=== PATIENT | male | born 1985 | race Caucasian/White ===

== ENCOUNTER 2020-04-16 16:09 | Outpatient (REF) | payer OTHER, SELFPAY | END 2020-04-16 16:10 | disposition home or self-care (01) | LOC: HO.LAB 16:09 | PROVIDERS: Visit Provider Internal Medicine | DX: Z20.828 Contact with and (suspected) exposure to other viral communicable diseases (principal) | CPT/HCPCS: 87635 ==

== ENCOUNTER 2024-09-05 08:51 | Outpatient (REF) | payer OTHER, SELFPAY ==
--- NOTE | 2024-09-05 08:56 | EMG_ITS ---
Right median and ulnar motor and sensory studies were performed. Right radial sensory study was performed. Paraspinal muscles and some limb muscles were tested with a needle. IMPRESSION: 1. 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 2. Chronic right mid cervical radiculopathy. MD DEVANTE Dawson/DUTCH / [id number]
--- OUTSIDE RECORDS SUMMARY | 2024-09-05 09:22 | XMS_ITS | Clinical Summary ---
Author Organization [facility] ity Address [address] [place] [address] Care Team Providers Care Layout Man Name Role Phone Unavailable Primary Care Provider Unavailabl e Social History Tobacco Use Types Packs/Day Years Used Date Smoking Tobacco: Never Assessed Sex and Gender Information Value Date Recorded Sex Assigned at Not on file Legal Sex Male 3:49 AM EST Gender Identity Not on file Sexual Orientation Not on file Plan of Treatment Health Maintenance Due Date Last Done Comments DTaP,Tdap,and Td Vaccines (1 - Tdap) 10/01/2003 Hepatitis B Vaccines (1 of 3 - 19+ 3-dose series) 10/01/2003 Cholesterol Screening (Lipid Panel) 05/24/2022 Depression Screening 05/24/2022 HIV Screening 05/24/2022 Hepatitis C Screening 05/24/2022 Social Influencers of Health Screening 05/24/2022 COVID-19 Vaccine (2023-2 5 season) 2024 Influenza Vaccine (#1) 2024 HIB Vaccines Aged Out No longer eligi ble based on patient's age to complete this topic HPV Vaccines Aged Out No longer eligi ble based on patient's age to complete this topic Hepatitis A Vaccines Aged Out No long er eligible based on patient's age to complete this topic IPV Vaccines Aged Out No longer eligi ble based on patient's age to complete this topic MMR Vaccines Aged Out No longer eligi ble based on patient's age to complete this topic Meningococcal ACWY Vaccine Aged Out N o longer eligible based on patient's age to complete this topic Meningococcal B Vacine Aged Out No lo nger eligible based on patient's age to complete this topic Pneumococcal Vaccine: Pediat rics (0 to 5 Years) and At-Risk Patients (6 to 64 Years) Aged Out No longer eligible b ased on patient's age to complete this topic RSV Immunization Patients Un danette 20 months Aged Out No longer eligible b ased on patient's age to complete this topic Varicella Vaccines Aged Out No longer eligible based on patient's age to complete this topic
== END 2024-09-05 08:52 | disposition home or self-care (01) ==
LOC: HO.NEURO 08:51
PROVIDERS: PCP Internal Medicine; Visit Provider Internal Medicine
DX: G56.01 Carpal tunnel syndrome, right upper limb (principal)
CPT/HCPCS: 95886; 95909

== ENCOUNTER 2024-09-25 12:39 | Outpatient (REF) | payer OTHER, SELFPAY ==
[2024-09-25 13:57] LABS: Estimated Average Glucose 114 mg/dL; Hemoglobin A1C 154.3026 umol/L; Hemoglobin A1c % 5.6 % (<6.0); Total Hemoglobin (HGBA1C) 4041.7622 umol/L
[2024-09-25 14:53] LABS: Anion Gap 11 (12-20)
[2024-09-25 14:58] LABS: Alanine Aminotransferase 42 U/L (0-40); Albumin Level 4.4 g/dL (3.5-5.0); Alkaline Phosphatase 65 U/L (39-117); Aspartate Amino Transferase 31 U/L (5-37); Bilirubin Total 0.6 mg/dL (0.0-1.0); Blood Urea Nitrogen 11 mg/dL (9-16); Calcium 9.4 mg/dL (8.4-10.2); Carbon Dioxide 27 mmol/L (22-29); Chloride 105 mmol/L (96-108); Cholesterol 195 mg/dL (<200); Estimated Glomerular Filt Rate > 60; Glucose Random 89 mg/dL (60-115); HDL Cholesterol 38 mg/dL (>40); LDL Cholesterol Calculated 119 mg/dL (<100); Potassium 4.2 mmol/L (3.3-5.1); Sodium 139 mmol/L (135-145); Total Protein 7.7 g/dL (6.5-8.0); Triglycerides 190 mg/dL (<150)
--- OUTSIDE RECORDS SUMMARY | 2024-09-25 14:58 | XMS_ITS | Clinical Summary ---
Author Organization [facility] [employer] [facility] ity Address [address] [place] [address] Care Team Providers Care Automotive Engineering Teacher Name Role Phone Unavailable Primary Care Provider [...] age to complete this topic Meningococcal B Vaccine Aged Out No l onger eligible based on patient's age to complete [...]
== END 2024-09-25 12:40 | disposition home or self-care (01) ==
LOC: HO.LAB 12:39
PROVIDERS: PCP Internal Medicine; Visit Provider Internal Medicine
DX: E03.9 Hypothyroidism, unspecified (principal); E66.01 Morbid (severe) obesity due to excess calories; E78.00 Pure hypercholesterolemia, unspecified; G47.33 Obstructive sleep apnea (adult) (pediatric); G56.01 Carpal tunnel syndrome, right upper limb; H81.12 Benign paroxysmal vertigo, left ear
CPT/HCPCS: 36415; 80053; 80061; 83036; 84443

== ENCOUNTER → 2024-10-31 15:47 | Outpatient (BNVA) | payer OTHER, SELFPAY | PROVIDERS: PCP Internal Medicine; Visit Provider Physician Assistant Surgical ==

== ENCOUNTER 2024-11-01 14:04 | Outpatient (AMB) | payer OTHER, SELFPAY ==
--- OUTSIDE RECORDS SUMMARY | 2024-11-01 14:06 | XMS_ITS | Clinical Summary ---
Author Organization [employer] [facility] ity Address [address] [place] [address] Care Team Providers Care Furnace Operator Oil Or Gas Name Role Phone Unavailable Primary Care Provider [...] Vaccine (2023-2 5 season) 2024 Influenza Vaccine (Season Ended) 2025 HIB Vaccines Aged Out No longer eligi [...]
--- NOTE | 2024-11-01 14:07 | A.OFFVIS_ITS ---
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 States his symptoms started Patient explains in [id number] he was diagnose with B/L CTS. He used braces for 5-6 months and then D/C due to feeling better. States as of last year in November when in [place] he noticed his symptoms has returned. Currently states his CTS has worsen and would like to discuss surgical intervention. IMPRESSION: 1. 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 2. Chronic right mid cervical radiculopathy. 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 He complains of numbness in all the fingers of his right hand. Symptoms intermittent, but daily, worse at night. he says he was diagnosed with bilateral carpal tunnel syndrome in 2014, but his symptoms initially improved with bracing. In regards to his left hand, he says his sensation is normal. He denies any locking or catching. He has chronic right-side cervical radiculopathy, as seen on his NCS. 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 [facility] Surgical History H/O Spinal surgery Family History (Updated 11/01/24 @ 14:09 by Logan Mata RN) Father No problems noted. Mother No problems noted. Social History (Updated 11/01/24 @ 14:16 by PRANAY Willis) Alcohol intake: never Comment: no etoh Patient Tobacco Use Status: Never used Tobacco Current occupational status: employed Current occupation: [employer] Review of Systems Const All systems reviewed & are unremarkable except as noted in HPI and below Physical Exam Vital Signs: BMI result Body Mass Index 44.7 Const General: cooperative, healthy appearing and no acute distress Orientation/consciousness: patient oriented x3 HEENT Head: Yes normocephalic and Yes atraumatic Eyes EOM: EOMs intact bilaterally Resp Effort & Inspection: normal respiratory effort and able to speak in complete sentences Cardio Jugular venous distension: no JVD Skin General skin exam: turgor normal Rashes: no rashes Neuro General: patient oriented x3 Extrem Other: Evaluation of Right Upper Extremity: The patient is alert, oriented, and in no acute distress Neuro: Dense numbness in the median nerve distribution. Normal sensation in the ulnar nerve distribution No thenar or intrinsic wasting Good APB muscle belly firing and good finger cross Vascular: Cap refill brisk ROM: He can make a fist and extend all his digits No locking or catching Skin: No lacerations or abrasions. General: No Ecchymosis. No Erythema or evidence of infection. Nerve Conduction Study: Right-side only IMPRESSION: 1. 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 2. Chronic right mid cervical radiculopathy. Sarah Kruger MD Psych Appearance: grossly normal Affect: normal affect Attitude: cooperative Assessment & Plan Assessment & Plan (1) Carpal tunnel syndrome of right wrist: Code(s): G56.01 - Carpal tunnel syndrome, right upper limb Category: Medical (2) Cervical radiculopathy: Code(s): M54.12 - Radiculopathy, cervical region Category: Medical Plan Assessment & Plan: 1. Right carpal tunnel syndrome, moderate-severe With dense numbness, worse with activities I educated him about this condition I discussed operative and non-operative treatment options The patient would like to proceed with surgery The risks and benefits of operative treatment were discussed with the patient and the patient wishes to proceed with surgery. These risks include, but are not limited to risk of damage to blood vessels, nerves, tendons, infection, recurrence, incomplete relief of preoperative symptoms, persistent pain, possible need for further surgery and the risks associated with regional blocks and anesthesia. I explained the risks of his sensation not returning, but that surgery is important to maintain muscle function and preserve any sensation possible. He expressed understanding The plan is to take the patient to the operating room sometime in the next few weeks for the following procedures: 1. Right carpal tunnel release, under local All of the preoperative paperwork including the consent was reviewed today. All the patient's questions were answered. The patient understands that they will be contacted by our waiter/waitress club soon to schedule this procedure He denies Diabetes, blood thinners, asthma, heart, lung, kidney issues 2. Right chronic mid cervical radiculopathy Scribed for Ruthann Delgado MD by Nehemias Patel, medical customer service representative, on 11/01/24 at 2:15 PM, EST. Coding Level of Care Code New Pt Level 4 (83784) Diagnoses Carpal tunnel syndrome of right wrist G56.01 Cervical radiculopathy M54.12
[2024-11-01 14:08] VITALS: BMI 44.7
== END 2024-11-01 14:30 | disposition home or self-care (01) ==
LOC: HO.HOS 14:04
PROVIDERS: PCP Internal Medicine; Visit Provider Orthopaedic Surgery
DX: G56.01 Carpal tunnel syndrome, right upper limb (principal); M54.12 Radiculopathy, cervical region
CPT/HCPCS: 99204

== ENCOUNTER → 2024-11-01 14:04 | Outpatient (BNVA) | payer OTHER, SELFPAY | PROVIDERS: PCP Internal Medicine; Visit Provider Orthopaedic Surgery | DX: G56.01 Carpal tunnel syndrome, right upper limb (principal); M54.12 Radiculopathy, cervical region | CPT/HCPCS: 99202 ==

== ENCOUNTER 2024-11-08 09:53 | Day surgery (SDC) | payer OTHER, SELFPAY ==
[2024-11-08 10:07] VITALS: BMI 45.6
[2024-11-08 10:08] VITALS: BP 146/92; PULSE 83; RESP 16; TEMP 36.4; O2SAT 98
--- NOTE | 2024-11-08 10:28 | P.HPSUR_ITS ---
Pre-Procedural Eval Section A - 24 Hr Update-Section A only Date of Service: 11/08/24 The patient is an INPATIENT: No Changes since office visit: No Cold of Flu in the past 2 weeks, No New Medical Problems, No Changes in Medication and No Patient answered all questions The patient has been examined within 24 hours of the surgical procedure. The History & Physical has been completed within 30 days and I have reviewed it.: Yes Section B - Complete if H&P > 30 days Chief Complaint: Carpal tunnel syndrome, right upper limb Allergies: Allergies Allergy/AdvReac Type Severity Reaction Status Date / Time levetiracetam [From [facility]] Allergy Severe ANAPHYLAXIS Verified 11/08/24 10:07 Plan Diagnosis/Plan: Unchanged I have reviewed the history and physical and performed a pertinent physical examination on my patient. No changes have occurred unless specified. Time Spent With Patient Time: Total time managing care of this patient today ____ minutes.
--- NOTE | 2024-11-08 10:29 | W.PM.OPN ---
Operative Note Operative Note Date of Service: 11/08/24 Narrative: Preop diagnosis: 1. Right Carpal tunnel syndrome Postop diagnosis: same Procedure: 1. Right Carpal tunnel release Surgeon: Ruthann Delgado MD [employer] Partnership Rep: Jean ARTHUR Anesthesia: local block using 1% lidocaine with epinephrine Findings: Thickened transverse carpal ligament. EBL: Less than 5 mL Specimens: None Complications: None Disposition: Brought to recovery room in stable condition Plan: Follow-up for 10-14 days for wound check and suture removal Indications: The patient is 39 years old, with right carpal tunnel syndrome that has been unresponsive to nonoperative management. The risks and benefits of operative treatment including but not limited to risk of damage to blood vessels, nerves, tendons, infection, persistent pain, persistent symptoms, or possible need for additional surgery were discussed with the patient and the patient wishes to proceed with surgery. Procedure: Once consent was obtained a local block was performed using a combination of 1% lidocaine with epinephrine. The patient was then brought back to the operating suite and placed on the operative table in supine position. The right upper extremity was prepped and draped in a standard surgical fashion. Once assured that we had a good block, a 2.0 cm longitudinal incision was made centered over the carpal tunnel. The incision was made through the skin to the subcutaneous tissues using a #15 blade. Dissection was made down to the level of the transverse carpal ligament with care being taken to protect the palmar cutaneous nerve. Once the transverse carpal ligament was clearly visualized, a longitudinal incision was made in the transverse carpal ligament 1st using a #15 blade, then using tenotomy scissors under direct visualization. Care was taken to look for and protect the motor branch of the median nerve when seen in this area. Once satisfied with our carpal tunnel release the wound was copiously irrigated with normal saline and hemostasis was obtained with a brief period of local pressure. The skin edges were reapproximated with some 5.0 nylon suture material and a sterile dressing was applied. The patient appears to have tolerated the procedure well and with no complications. All digits were well vascularized at the conclusion of the case.
[2024-11-08 12:48] VITALS: BP 141/90; PULSE 79; RESP 17; O2SAT 79
== END 2024-11-08 12:49 | disposition home or self-care (01) ==
PROVIDERS: PCP Internal Medicine; Visit Provider Orthopaedic Surgery
PROC: (CPT 64721; principal; 2024-11-08 13:00)
DX: G56.01 Carpal tunnel syndrome, right upper limb (principal); R20.0 Anesthesia of skin; Z88.1 Allergy status to other antibiotic agents; Z98.890 Other specified postprocedural states
CPT/HCPCS: 64721; J0171; J2003

== ENCOUNTER → 2024-11-08 09:53 | Outpatient (BNV) | payer OTHER, SELFPAY | PROVIDERS: PCP Internal Medicine; Visit Provider Orthopaedic Surgery | DX: G56.01 Carpal tunnel syndrome, right upper limb (principal) | CPT/HCPCS: 64721 ==

== ENCOUNTER 2024-11-10 08:33 | Outpatient (AMB) | payer OTHER, SELFPAY ==
--- OUTSIDE RECORDS SUMMARY | 2024-11-10 08:43 | XMS_ITS | Clinical Summary ---
Author Organization [employer] [facility] ity Address [address] [place] [address] Care Team Providers Care Doctor Of Radiology Name Role Phone Unavailable Primary Care Provider [...]
--- NOTE | 2024-11-10 12:04 | MHC.OFFVISWM ---
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 vs MWL BMI 44.7: Details: Start time: 11.56am, End time: 12.26pm ?I spent 25 minutes speaking with the patient on the phone plus an additional 5 minutes reviewing and updating records for a total of 30 minutes HPI Comments Details: Previous weight loss efforts: exercise Wakes up: 7am, Sleeps: 10pm Breakfast: skips Lunch: 12pm (sandwiches) Dinner: 6pm-7pm (rice, beans, meat) Snacks: 9pm (cereal, corn flakes) Exercise: none Beverages: Coffee: none, tea: none, soda: Regular Sprite occasionally, juice: none, ETOH: none PFSH Medical History (Updated 11/10/24 @ 12:07 by Williams Buitrago MD) Hypothyroidism Hyperlipidemia GERD (gastroesophageal reflux disease) Morbid obesity Seizure Surgical History (Updated 11/08/24 @ 10:11 by Luisa Duvall, REBECCA) History of brain shunt H/O Spinal surgery Family History (Updated 11/01/24 @ 14:09 by Logan Mata RN) Father No problems noted. Mother No problems noted. Social History (Updated 11/01/24 @ 14:16 by PRANAY Willis) Alcohol intake: never Comment: no etoh Patient Tobacco Use Status: Never used Tobacco Current occupational status: employed Current occupation: [employer] Telehealth Telehealth Platform: Telephone Location of provider rendering services: practice address Location of patient: address on file Patient Identification confirmed using: Name, : Yes Telehealth method: voice only Patient verbally consented to treatment: Yes Patient verbally consented to billing insurance company: Yes Patient informed of any privacy concerns related to visit: Yes Minutes spent on Phone/Video with Pt.: 30 Assessment & Plan Assessment & Plan (1) Morbid obesity: Code(s): E66.01 - Morbid (severe) obesity due to excess calories Category: Medical Plan: 1. We discussed in detail the available therapeutic options: 1) our lifestyle intervention program that has an average weight loss of 10% in 3 months, which would be approximately 30lbs for you. However you need to lose 110-130lbs.? 2) Weight loss medications. We also discussed that you can self pay for the first 3 months and the cost is $399 for the first month and $499 for any other month thereafter. Your insurance will not cover the shots unless you are in our lifestyle program for 3 months. 3) We also discussed about the lap sleeve gastrectomy. I emphasized the importance of close follow-up, adherence to instructions and good communication. The surgery does not replace the need to change your lifestlyle which is the cause of the obesity problem. The surgery provides the motivation to try again to change your lifestyle, it reduces the appetite and make the transition to a better lifestyle easier and doubles the amount of weight you would lose compared to doing the lifestyle change without the surgery. You will need to be on a liquid diet with protein shakes for 2 weeks before surgery to maximize weight loss and boost your nutritional status to recover better from surgery and also for the first two weeks after surgery to let the stomach heal before we introduce other foods. After the first 2 weeks we will introduce protein bars and soft foods like scrambled eggs, cottage cheese and yogurt and after the 6th week will introduce meat, fish and cooked vegetables in small amounts. Over time you should be able to eat everything in small amounts. Side effects like nausea, vomiting, heartburn or abdominal pain are not common in the practice unless you are not following in the practice. This operation requires lifetime commitment to following in our practice and communication with me. You will much less weight and experience side effects if you don?t communicate or not following in the practice. Complications are rare and in our practice is about 1/10 of the national average. The patient will discuss these options with his spouse and will get back to me with his decision.
[2024-11-10 12:11] VITALS: BMI 44.7
== END 2024-11-10 12:27 | disposition home or self-care (01) ==
LOC: HO.HBS 08:33
PROVIDERS: PCP Internal Medicine; Visit Provider Surgery
DX: E66.01 Morbid (severe) obesity due to excess calories (principal)
CPT/HCPCS: 99203

== ENCOUNTER → 2024-11-10 08:33 | Outpatient (BNVA) | payer OTHER, SELFPAY | PROVIDERS: PCP Internal Medicine; Visit Provider Surgery ==

== ENCOUNTER 2024-11-21 14:29 | Outpatient (AMB) | payer OTHER, SELFPAY ==
--- NOTE | 2024-11-21 14:41 | MHC.OFFVIS ---
Vital Signs 11/21/24 15:15 Height 5 ft 8 in Weight 294 lb BMI 44.7 Handedness Right Intake Visit Reasons: PO RT CTR 11/08/24 AR Intake Note: Alfie is a 39 year old right hand dominant male who presents today for a post operative visit status post right carpal tunnel release DOS: 11/08/[address] Ruthann Delgado. Patient reports he no longer is having numbness and tingling. Denies any drainage from incision. He states his healing is better than he expected. Sutures removed and steri strips have been applied. Allergies levetiracetam [From [facility]] Allergy (Severe, Verified 11/21/24 15:14) ANAPHYLAXIS HPI HPI PO RT CTR 11/08/24 AR: Details: Alfie is a 39 year old right hand dominant male who presents today for a post operative visit status post right carpal tunnel release DOS: 11/08/[address] Ruthann Delgado. Patient reports he no longer is having numbness and tingling. Denies any drainage from incision. He states his healing is better than he expected. Sutures removed and steri strips have been applied. [facility] Medical History Hypothyroidism Hyperlipidemia GERD (gastroesophageal reflux disease) Morbid obesity Seizure Surgical History History of brain shunt H/O Spinal surgery Family History Father No problems noted. Mother No problems noted. Social History Alcohol intake: never Comment: no etoh Patient Tobacco Use Status: Never used Tobacco Current occupational status: employed Current occupation: [employer] Physical Exam Vital Signs: BMI result Body Mass Index 44.7 Assessment & Plan Assessment & Plan (1) Carpal tunnel syndrome of right wrist: Code(s): G56.01 - Carpal tunnel syndrome, right upper limb Category: Medical Plan History of Present Illness The patient is a 39-year-old male presenting with a follow-up for postoperative hand surgery. He reported undergoing surgery on one hand and noted satisfactory progress in recovery. The patient confirmed that preoperative symptoms such as numbness and tingling had resolved. The surgical incision appeared well-healed with no redness or pain, and he was able to move the hand comfortably. The patient adhered to advised postoperative care measures, avoiding submersion of the hand and heavy lifting. Review of Systems - Neurological: Denies numbness, denies tingling. - Musculoskeletal: Denies pain, retains hand mobility. - Integumentary: Denies redness at incision site. Systems reviewed and are negative except as per HPI and below Physical Exam - Musculoskeletal- Surgical incision on the hand is well-healed with no redness; no pain upon movement; full range of motion observed in hand. Normal sensation to the tips of all digits of the right hand in the office today Results Procedure Plan The plan involves ongoing postoperative management for the patient's hand surgery. The patient should avoid submersing the hand in water for another week and refrain from lifting items heavier than a cell phone for two weeks. Application of a light dressing is advised when the patient is active outside, and dirty activities should be avoided for another week. The use of stereostrips should continue until they naturally fall off, ideally within five days. Further follow-up is not required given the satisfactory healing progress. Patient was informed and verbally consented to the use of an ambient scribe for clinic note documentation during this visit. Discussion Notes During the consultation, I discussed the patient's remarkable recovery following hand surgery. We reviewed the postoperative care instructions, emphasizing the importance of avoiding water submersion and refraining from lifting heavy items. The patient was informed about the use of light dressing and the activity restrictions to prevent complications. We also discussed the use of stereostrips and the expected time frame for their removal. I assured the patient of the satisfactory healing progress and clarified that no further follow-up is necessary unless issues arise. The patient expressed understanding and satisfaction with both the progress and guidelines provided. Patient Instructions - Avoid submerging your hand in water for one more week. - Do not lift anything heavier than a cell phone for two weeks. - Apply a light dressing on the incision when outside for the next four to five days. - Avoid dirty activities like gardening or working on a car for one week. - If stereostrips do not fall off within five days, you can remove them. - Contact us if you have any concerns or questions about your recovery. Coding Level of Care Code Global (13919) Diagnoses Carpal tunnel syndrome of right wrist G56.01
[2024-11-21 15:15] VITALS: BMI 44.7
--- OUTSIDE RECORDS SUMMARY | 2024-11-21 16:20 | XMS_ITS | Clinical Summary ---
Author Organization [facility] [employer] [facility] ity Address [address] [place] [address] Care Team Providers Care Pharmacoepidemiologist Name Role Phone Unavailable Primary Care Provider [...]
== END 2024-11-21 15:27 | disposition home or self-care (01) ==
LOC: HO.HOS 14:31
PROVIDERS: PCP Internal Medicine
DX: G56.01 Carpal tunnel syndrome, right upper limb (principal)
CPT/HCPCS: 99024

== ENCOUNTER → 2024-11-21 14:29 | Outpatient (BNVA) | payer OTHER, SELFPAY | PROVIDERS: PCP Internal Medicine | DX: Z48.811 Encounter for surgical aftercare following surgery on the nervous system (principal); Z98.890 Other specified postprocedural states | CPT/HCPCS: 99212 ==

== ENCOUNTER 2024-11-28 10:34 | Outpatient (REF) | payer OTHER, SELFPAY ==
[2024-11-28 10:54] LABS: MANUAL DIFF FLAG NO
[2024-11-28 11:24] LABS: Basophils Percent Auto 0.4 % (0-2); Eosinophils Percent Auto 0.5 % (0-4); Hemoglobin 14.9 g/dl (14.0-18.0); Imm Gran Abs Auto 0.02 X10*3/uL (0.00-0.03); Imm Gran Pct Auto 0.4 % (0.0-0.4); Lymphocytes Absolute Auto 1.8 X10*3/uL (1.2-4.9); Lymphocytes Percent Auto 31.2 % (20-40); Mean Corpuscular HGB Conc 33.9 g/dl (31.0-36.0); Mean Corpuscular Hemoglobin 29.6 pg (27.0-33.0); Mean Corpuscular Volume 87.5 fL (80.0-98.0); Mean Platelet Volume 9.4 fL (9.4-12.4); Monocytes Absolute Auto 0.6 X10*3/uL (0.1-1.2); Monocytes Percent Auto 10.5 % (2-11); Neutrophils Absolute Auto 3.2 x10*3/uL (2.0-8.3); Platelet Count 291 X10*3/uL (160-400); Red Blood Count 5.03 X10*6/uL (4.60-5.80); Red Cell Distribution Width 12.6 % (11.0-16.0); White Blood Count 5.6 X10*3/uL (4.8-10.8)
[2024-11-28 11:33] LABS: Estimated Average Glucose 108 mg/dL; Hemoglobin A1c % 5.4 % (<6.0); Total Hemoglobin (HGBA1C) 3900.8296 umol/L
[2024-11-28 11:45] LABS: Alanine Aminotransferase 35 U/L (0-40); Albumin Level 4.8 g/dL (3.5-5.0); Alkaline Phosphatase 65 U/L (39-117); Anion Gap 11 (12-20); Aspartate Amino Transferase 28 U/L (5-37); Bilirubin Total 0.5 mg/dL (0.0-1.0); Blood Urea Nitrogen 14 mg/dL (9-16); C Reactive Protein 0.26 mg/dL (< or = 0.50); Calcium 9.3 mg/dL (8.4-10.2); Carbon Dioxide 25 mmol/L (22-29); Chloride 108 mmol/L (96-108); Cholesterol 182 mg/dL (<200); Estimated Glomerular Filt Rate > 60; Glucose Random 89 mg/dL (60-115); HDL Cholesterol 41 mg/dL (>40); Iron 100 mcg/dL (45-160); LDL Cholesterol Calculated 124 mg/dL (<100); Percent Iron Saturation 35 % (15-50); Potassium 3.9 mmol/L (3.3-5.1); Sodium 140 mmol/L (135-145); Total Iron Binding Capacity 287 mcg/dL (228-428); Total Protein 7.5 g/dL (6.5-8.0); Triglycerides 86 mg/dL (<150); Unsaturated Iron Binding 187 ug/dL
[2024-11-28 12:05] LABS: Ferritin 157 ng/mL (20-250); Insulin 18 uU/mL (2-29); TSH reflex Free T4 9.75 uIU/mL (0.32-4.0); Vitamin D 25-OH Total 20.4 ng/mL (>30)
[2024-11-28 12:16] LABS: Folate 13.5 ng/mL (> or = 4.0); Vitamin B12 408 pg/mL (200-900)
--- OUTSIDE RECORDS SUMMARY | 2024-11-28 12:22 | XMS_ITS | Clinical Summary ---
Author Organization [facility] [employer] [facility] ity Address [address] [place] [address] Care Team Providers Care Photo Mask Processor Name Role Phone Unavailable Primary Care Provider [...]
[2024-11-28 13:10] LABS: Free T4 (Free Thyroxine) 0.89 ng/dL (0.71-1.85)
[2024-12-02 00:13] LABS: Vitamin A 70 mcg/dL (38-98)
[2024-12-02 00:38] LABS: Zinc 92 mcg/dL (60-130)
[2024-12-02 16:53] LABS: Vitamin B1 9 nmol/L (8-30)
== END 2024-11-28 10:35 | disposition home or self-care (01) ==
LOC: HO.LAB 10:34
PROVIDERS: PCP Internal Medicine; Visit Provider Surgery
DX: E66.01 Morbid (severe) obesity due to excess calories (principal); E03.9 Hypothyroidism, unspecified; E78.5 Hyperlipidemia, unspecified; K21.9 Gastro-esophageal reflux disease without esophagitis
CPT/HCPCS: 36415; 80053; 80061; 82306; 82607; 82728; 82746; 83036; 83525; 83540; 84425; 84439; 84443; 84590; 84630; 85025; 86140

== ENCOUNTER 2024-12-08 12:25 | Outpatient (AMB) | payer OTHER, SELFPAY ==
--- NOTE | 2024-12-08 12:15 | A.OFFWM_ITS ---
Intake Intake Visit Reasons: TV BH Intake Allergies levetiracetam (From [facility]) Allergy (Severe, Verified 12/27/24 09:59) ANAPHYLAXIS [facility] Medical History (Updated 12/27/24 @ 10:41 by yLnda Nowak, RN) ROCHELLE (obstructive sleep apnea) Hypothyroidism Hyperlipidemia GERD (gastroesophageal reflux disease) Morbid obesity Seizure Surgical History (Updated 12/27/24 @ 10:41 by Lynda Nowak, RN) H/O endoscopy H/O colonoscopy History of brain shunt H/O Spinal surgery Family History Father No problems noted. Mother No problems noted. Social History Are you a primary transitions rn care coordinator to a significant other at home: No Do you presently have visiting nurse or other home services: No Alcohol intake: never Patient Tobacco Use Status: Former Tobacco user Tobacco use type: Cigarette Years Smoked: 1 Current occupational status: employed Current occupation: [employer] Assessment Weight Management Therapy Therapy Notes Details PT is a 39 years old male, who presents for initial visit to complete BH assessment as part of surgical weight loss program. PT was initially referred by his PCP as he has tried different alternatives for weight loss and his health is declining; he was trying to get the GLP-1 meds, but insurance denied the meds so PCP advised a referall to the program for weight-loss surgery. Presenting Concerns Referral Source WMP-Provider Reason for referral Completion of behavioral health assessment as part of process for weight-loss surgery. Precipitating Event Obesity Food/Weight/Diet Expectations of change PT started the program on 11/10/2024 at 294Lbs, and the most recent weight as of 12/06/2024 was 285Lbs. He is not sure about the initial weight-loss goal as he initially came to the program for MWL and recently changed to SWL. The patient hopes to improve his lifestyle and be at a healthy weight. He wants to be at least 200Lbs, but is open to reaching his target weight goal based on BMI. PT is implementing the following: Current meal plan: a combination of shakes, bars, and 1 meal per day (10F/10F) Exercise plan: Treadmill - was given a plan Scale: yes Communication with provider: Wednesdays. History/Relationship with food Example of meals before starting the program: Breakfast: Lunch: Dinner: Snacks: Drinks/Liquids: History/Relationship with weight PT denies struggling with obesity or being overweight in childhood. In 9th grade, he was 130Lbs, he started having valve issues and was started on a medication that impacted his weight and bumped him to 190Lbs in about 3-4 weeks. After that event, he was never able to be under 180 lbs. As a teen and young adult, he was very active and played basketball multiple times a week. In the last 10 years, the patient's Lowest weight was 230Lbs in and the highest 300Lbs History/Relationship with dieting Play basketball. PT reports he doesn't like exercise. Social History Family history and relationship PT got 5 years ago. He doesn't share kids with his , but she has 3 boys who are 13, 17, and 19, they all live with their father. He has 5 daughters from a previous relationship. Parents are alive, father is 74 y/o, his mother is 78 y/o, they live in the area. PT has 3 siblings on father's side, he's only child to his mother. PT reports he's not close to his siblings, but has a good relationship with parents. 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 He has shared custody of the kids, however they spend most of the time with their mom. He had 2 kids with his first partner, the 18 y/o lives in [place] with her mother, and the Oldest daughter, who is 19, lives with him. 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 ) Meaningful activities Hx of medical trauma Mental Health and Addiction Treatment Current/Past substance abuse? Yes Comments Alcohol: 1 cup of wine, 0-1 x month. Cigarettes/Tobacco: None. Cannabis/Edibles: None. 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 No Psychiatric history PT is in recovery from TAVERA over 5 years ago. Currently not in any type MH or TAVERA treatment. Over 11 years ago he was getting prescribed prozac and clonazepan as he was going trough stressfull events. Denies any formal MH diagnosis. Never hospitalized for mental health, denies any Hx of detox of TAVERA inpatient tx. Questionnaires PHQ-9 Over the last 2 weeks, how often have you been bothered by any of the following problems? 1. Little interest or pleasure in doing things: not at all 2. Feeling down, depressed, or hopeless: not at all 3. Trouble falling or staying asleep, or sleeping too much: not at all 4. Feeling tired or having little energy: not at all 5. Poor appetite or overeating: not at all 6. Feeling bad about yourself - or that you are a failure or have let yourself or your family down: not at all 7. Trouble concentrating on things, such as reading the newspaper or watching television: not at all 8. Moving or speaking so slowly that other people could have noticed. Or the opposite - being so fidgety or restless that you have been moving around a lot more than usual: not at all 9. Thoughts that you would be better off or of hurting yourself in some way: not at all Total score: 0 Depression Screening Interpretation: Negative (From new PT pack completed on 10/31/2024.) Depression Screening Done: Yes Source: Developed by Drs. Angel Stevenson, Samanta Bravo, Petey Hamilton and colleagues, with an educational jennie from [employer]. Binge Eating Scale Group 1 A. I don't feel self-conscious about my wt. or body size when I'm with others. B. I feel concerned about how I look to others, but it normally does not make me fell disappointed with myself C. I do get self-conscious about my appearance and wt. which makes me feel disappointed in myself. D. I feel very self-conscious about my wt. and frequently I feel intense shame and disgust for myself. I try to avoid social contacts because of my self- consciousness. Response Group 1: D Group 2 A. I don't have any difficulty eating slowly in the proper manner. B. Although I seem to gobble down foods, I don't end up feeling stuffed because of eating to much. C. At times, I tend to eat quickly and then, I feel uncomfortably full afterwards. D. I have the habit of bolting down my food, without really chewing it. When this happens I usually feel uncomfortably stuffed because I've eaten to much. Response Group 2: C Group 3 A. I feel capable to control my eating urges when I want to. B. I feel like I have failed to control my eating more than the average person. C. I feel utterly helpless when it comes to feeling in control of my eating urges. D. Because I feel so helpless about controlling my eating I have become very desperate about trying to get control. Response Group 3: B Group 4 A. I don't have the habit of eating when I'm bored. B. I sometimes eat when I'm bored, but often I'm able to get busy and get my mind off food. C. I have a regular habit of eating when I'm bored, but occasionally, I can use some other activity to get my mind off eating. D. I have a strong habit of eating when I'm bored. Nothing seems to help me breath the habit. Response Group 4: B Group 5 A. I'm usually physically hungry when I eat something. B. Occasionally, I eat something on impulse even though I really am not hungry. C. I have the regular habit of eating foods, that I might not really enjoy, to satisfy a hungry feeling even though physically, I don't need the food. D. Although I'm not physically hungry, I get a hungry feeling in my mouth that only seems to be satisfied when I eat a food, like sandwich, that fills my mouth. Sometimes, when I eat the food to satisfy my mouth hunger, I then spit the food out so I won't gain weight. Response Group 5: B Group 6 A. I don't feel any guilt or self-hate after I overeat. B. After I overeat, occasionally I feel guilt or self-hate. C. Almost all the time I experience strong guilt or self-hate after I overeat. Response Group 6: B Group 7 A. I don't lose total control of my eating when dieting even after periods when I overeat. B. Sometimes when I eat a forbidden food on a diet, I feel like I blew it and eat even more. C. Frequently, I have the habit of saying to myself, I've blown it now, why not go all the way, when I overeat on a diet. When that happens I eat more. D. I have a regular habit of starting a strict diets for myself but I break the diets by going on an eating binge. My life seems to be either a feast or famine. Response Group 7: C Group 8 A. I rarely eat so much food that I feel uncomfortably stuffed afterwards. B. Usually about once a month, I each such a quantity of food, I end up feeling very stuffed. C. I have regular periods during the month when I eat large amounts of food, either at mealtime or at snacks. D. I eat so much food that I regularly feel quite uncomfortable after eating and sometimes a bit nauseous. Response Group 8: C Group 9 A. My level of calorie intake does not go up very high or go down very low on a regular basis. B. Sometimes after I overeat, I will try to reduce my caloric intake to almost nothing to compensate for the excess calories I've eaten. C. I have a regular habit of overeating during the night. It seems that my routine is not to be hungry in the morning but overeat in the evening. D. In my adult years, I have had week-long periods where I practically starve myself. This follows periods when I overeat. It seems I live a life of either feast or famine. Response Group 9: C Group 10 A. I usually am able to stop eating when I want to. I know when enough is enough. B. Every so often, I experience a compulsion to eat which I can't seem to control. C. Frequently, I experience strong urges to eat which I seem unable to control, but at other times I can control my eating urges. D. I feel incapable of controlling urges to eat. I have a fear of not being able to stop eating voluntarily. Response Group 10: B Group 11 A. I don't have any problem stopping eating when I feel full. B. I usually can stop eating when I feel full but occasionally overeat leaving me feeling uncomfortably stuffed. C. I have a problem stopping eating once I start and usually I feel uncomfortably stuffed after I eat a meal. D. Because I have a problem not being able to stop eating when I want, I sometimes have to induce vomiting to relieve my stuffed feeling. Response Group 11: C Group 12 A. I seem to eat just as much when I'm with others, Family social gatherings as when I'm by myself. B. Sometimes, when I'm with other persons, I don't eat as much as I want to eat because I'm self-conscious about my eating. C. Frequently, I eat only a small amount of food when others are present, because I'm very embarrassed about my eating. D. I feel so ashamed about overeating that I pick times to overeat when I know no one will see me. I feel like a closet eater. Response Group 12: A Group 13 A. I eat three meals a day with only an occasional between meal snack. B. I eat 3 meals a day, but I also normally snack between meals. C. When I am snacking heavily, I get in the habit of skipping regular meals. D. There are regular periods when I seem to be continually eating, with no planned meals. Response Group 13: A Group 14 A. I don't think much about trying to control unwanted eating urges. B. At least some of the time, I feel my thoughts are pre-occupied with trying to control my eating urges. C. I feel that frequently I spend much time thinking about how much I ate or about trying not to eat anymore. D. It seems to me that most of my waking hours are pre-occupied by thoughts about eating or not eating. I feel like I'm constantly struggling not to eat. Response Group 14: B Group 15 A. I don't think about food a great deal. B. I have strong craving for food but they last only for brief periods of time. C. I have days when I can't seem to think about anything else but food. D. Most of my days seem to be pre-occupied with thoughts about food. I feel like I live to eat. Response Group 15: B Group 16 A. I usually know whether or not I'm physically hungry. I take the right portion of food to satisfy me. B. Occasionally, I feel uncertain about knowing whether or not I'm physically hungry. A these times it's hard to know how much food I should take to satisfy me. C. Even though I might know how many calories I should eat, I don't have any idea what is a normal amount of food for me. Response Group 16: B Binge Eating Score: 21 Score less than 17 Minimal Risk Score between 18-26 Moderate Risk Score between 27-46 High Risk Assessment & Plan Assessment & Plan (1) Adjustment disorder: Code(s): F43.20 - Adjustment disorder, unspecified Qualifiers: Adjustment disorder type: unspecified type Qualified Code(s): F43.20 - Adjustment disorder, unspecified (2) Inappropriate diet or eating habits: Code(s): Z72.4 - Inappropriate diet and eating habits (3) Pre-bariatric surgery psychological evaluation: Code(s): Z71.89 - Other specified counseling Plan The patient was not cleared today as the assessment was not completed. The patient will return in 2-4 weeks to continue the evaluation. Next appointment: 01/03/2025 at 10am, Telehealth Telehealth Telehealth Platform: [facility] Location of provider rendering services: practice address Location of patient: address on file Patient Identification confirmed using: Name, : Yes Telehealth method: voice only Patient verbally consented to treatment: Yes Patient verbally consented to billing insurance company: Yes Patient informed of any privacy concerns related to visit: Yes Minutes spent on Phone/Video with Pt.: 50 Coding Level of Care Code New Pt Tele Psy Diag Eval (89831) Patient Type New Diagnoses Adjustment disorder, unspecified type F43.20 Adjustment disorder type: unspecified type Inappropriate diet or eating habits Z72.4 Pre-bariatric surgery psychological evaluation Z71.89 Time Spent (min) 50
== END 2024-12-08 13:08 | disposition home or self-care (01) ==
LOC: HO.HBST 12:25
PROVIDERS: PCP Internal Medicine; Visit Provider Counselor Mental Health
DX: F43.20 Adjustment disorder, unspecified (principal); Z72.4 Inappropriate diet and eating habits; Z71.89 Other specified counseling
CPT/HCPCS: 90791

== ENCOUNTER 2024-12-27 09:49 | Day surgery (SDC) | payer OTHER, SELFPAY ==
--- OUTSIDE RECORDS SUMMARY | 2024-11-24 08:16 | XMS_ITS | Clinical Summary ---
Author Organization [facility] [employer] [facility] ity Address [address] [place] [address] Care Team Providers Care Statistical Modeler Name Role Phone Unavailable Primary Care Provider [...]
[2024-12-25 07:14] VITALS: BMI 44.7
--- NOTE | 2024-12-26 11:46 | HO.ANESPROP2 ---
Documented by User: Gilma Hernandez NP 12/26/24 11:57 HPI - Anesthesia Eval Consult details Narrative: 39yo M for Upper Endoscopy Hx of seizures. 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 Last imaging 2020 confirms correct placement. Per patient, only prn f/u with neuro. No neuro symptoms PMFSH Active Problems Active Problems: All Active Problems Vitamin B12 deficiency (Acute) Vitamin D deficiency (Acute) Hypothyroidism (Acute) Hyperlipidemia (Acute) GERD (gastroesophageal reflux disease) (Acute) Morbid obesity (Acute) Cervical radiculopathy (Acute) Carpal tunnel syndrome of right wrist (Acute) Past Medical History Medical History (Updated 12/27/24 @ 09:58 by Lynda Nowak RN) ROCHELLE (obstructive sleep apnea) Hypothyroidism Hyperlipidemia GERD (gastroesophageal reflux disease) Morbid obesity Seizure Family History Family History Father No problems noted. Mother No problems noted. Surgical History Surgical History History of brain shunt H/O Spinal surgery Social History Social History Alcohol intake: never Comment: no etoh Patient Tobacco Use Status: Never used Tobacco Advance Directives: No Advance Directives Information Provided: Yes Current occupational status: employed Current occupation: [employer] Allergies Allergy/AdvReac Type Severity Reaction Status Date / Time levetiracetam (From [facility]) Allergy Severe ANAPHYLAXIS Verified 12/27/24 09:59 Home Medications ?Medication ?Instructions ?Recorded ?Confirmed ?Last Taken ?Type atorvastatin 20 mg tablet 20 mg PO DAILY 11/01/24 12/27/24 Unknown History levothyroxine 100 mcg tablet 100 mcg PO DAILY 11/01/24 12/27/24 12/27/24 History (Levo-T) omeprazole 20 mg capsule,delayed 20 mg PO DAILY 11/01/24 12/27/24 12/27/24 History release Exam Height,Weight and Vital Signs: Height 5 ft 8 in Weight 133.356 kg Assessment and Plan Assessment Anesthesia Assessment: Chart Reviewed Documented by User: Velia Gupta MD 12/27/24 10:10 [facility] Past Medical History Medical History (Updated 12/27/24 @ 09:58 by Lynda Nowak, REBECCA) ROCHELLE (obstructive sleep apnea) Hypothyroidism Hyperlipidemia GERD (gastroesophageal reflux disease) Morbid obesity Seizure Family History Family History Father No problems noted. Mother No problems noted. Family history of problems with anesthesia: No Surgical History Surgical History History of brain shunt H/O Spinal surgery History of Problems with Anesthesia: No Social History Social History Alcohol intake: never Comment: no etoh Patient Tobacco Use Status: Never used Tobacco Advance Directives: No Advance Directives Information Provided: Yes Current occupational status: employed Current occupation: [employer] Allergies Allergy/AdvReac Type Severity Reaction Status Date / Time levetiracetam (From [facility]) Allergy Severe ANAPHYLAXIS Verified 12/27/24 09:59 Home Medications ?Medication ?Instructions ?Recorded ?Confirmed ?Last Taken ?Type atorvastatin 20 mg tablet 20 mg PO DAILY 11/01/24 12/27/24 Unknown History levothyroxine 100 mcg tablet 100 mcg PO DAILY 11/01/24 12/27/24 12/27/24 History (Levo-T) omeprazole 20 mg capsule,delayed 20 mg PO DAILY 11/01/24 12/27/24 12/27/24 History release Exam Airway Mallampati Class: III (thick neck) TM Dist: >3cm Neck ROM: Full Heart: rrr Lungs: cta Assessment and Plan Assessment Anesthesia Assessment: Anesthesia Plan Discussed Final Anesthetic Review Family History of Problems with Anesthesia: No History of Problems with Anesthesia: No NPO: Yes ASA Class: III Final Preanesthetic Review: No Changes in Pt Med Stat, Meds/Allgs Chart Reviewed and Consent Obtained/Reviewed Patient Risk: Intermediate Procedure Risk: Intermediate Anesthetic Plan Anesthetic Plan: MAC: Disposition: Standard PACU
[2024-12-27 10:05] VITALS: BP 131/82; PULSE 93; RESP 16; TEMP 36.3; O2SAT 96; BMI 44.1
[2024-12-27] MEDS: Lactated Ringers 1,000 ML 80 ML IVCONT (10:26)
--- NOTE | 2024-12-27 11:23 | P.HPSUR_ITS ---
Pre-Procedural Eval Section A - 24 Hr Update-Section A only Date of Service: 12/27/24 The patient is an INPATIENT: No The patient has been examined within 24 hours of the surgical procedure. The History & Physical has been completed within 30 days and I have reviewed it.: Yes Section B - Complete if H&P > 30 days Chief Complaint: Morbid (severe) obesity due to excess calories Details of Present Illness: GERD Relevant Family History (Specify if Yes): No Relevant Social History: None Present Medications: None Medical History: No relevant PMH History of Previous Operations: No relevant previous surgery Allergies: Allergies Allergy/AdvReac Type Severity Reaction Status Date / Time levetiracetam (From [facility]) Allergy Severe ANAPHYLAXIS Verified 12/27/24 09:59 Review of Systems Sugical H&P ROS: Negative: Constitution, Cardiovascular, Respiratory, Neurological, Psychiatric, Hem-Onc, Allergic/Immunologic, Gastrointestinal, Genitourinary, Musculoskeletal, Integumentary, Endocrine and Eyes/Ears/Nose/Throat Exam Surgical H&P Exam: Normal: HEENT, Normal: Heart, Normal: Lungs, Normal: Extremities, Normal: Abdomen, Normal: Skin and Normal: Neurological Plan Diagnosis/Plan: Unchanged (EGD to assess etiology of GERD. Risks of bleeding and perforation were discussed with the patient and he is in agreement with the plan.) I have reviewed the history and physical and performed a pertinent physical examination on my patient. No changes have occurred unless specified. Time Spent With Patient Time: Total time managing care of this patient today ____ minutes.
--- NOTE | 2024-12-27 11:28 | PM.OP ---
Brief Operative Note Date of Service: 12/27/24 Pre-op diagnosis: GERD Post-op diagnosis: same Procedure: PROCEDURE DATE: 12/27/2024 PREOPERATIVE DIAGNOSIS: GERD POSTOPERATIVE DIAGNOSIS: ?Same as above. Proximal esophageal erosion PROCEDURE: [id number] with biopsies Surgeon: ?Jesus Buitrago M.D.. Ph.D. Professional System Administrator: None ? Anesthesia: IV sedation Estimated blood loss: ?Minimal FINDINGS AND PROCEDURE: ? OPERATIVE INDICATIONS: ?The patient is a 39 year old male known to me who is interested in bariatric surgery. The patient has GERD. Based on this information I recommended an upper endoscopy to evaluate the patient's symptoms. Risks and complications of the surgery were discussed with the patient in advance particularly the possibility of perforation or bleeding that may require surgical intervention. The patient understood the risks and was in agreement with the plan. ? PROCEDURE: After informed consent was obtained by the patient, the patient was ?transferred to the Operating Room and was placed in the supine position.? After successful induction of IV sedation, a mouth block was inserted and the patient was placed in the left lateral decubitus position. An upper endoscopy was performed next, the oropharynx appeared within the normal limits. At the proximal esophagus, approximately 15cm from incisors, there was a longitudinal erosion which was biopsied twice. There was no hiatal hernia. The z-line was smooth. Two biopsies were obtained from the distal esophagus 2-3 cm proximal to the GE junction and two additional biopsies from the GE junction. The stomach was entered and it appeared to be of normal size. There was no gastritis. There was no stricture or ulcer. A biopsy was obtained from the gastric fundus and the antrum. Retroflexion of the scope confirmed a normal GE junction. No significant bleeding was noted from any of the biopsy sites. The scope was then advanced into the duodenum which appeared to be normal as well. At that point the duodenum ?and the stomach were decompressed and the scope was withdrawn from the patient's mouth. The patient extubated and was transferred in stable condition to the Recovery Room for further care. I was present and performed all steps of the procedure. There were no residents to assist with this case. Jesus Buitrago M.D., Ph.D. Surgeon: Williams Buitrago MD Anesthesia: MAC Was an Professional System Administrator used for this Procedure?: No Estimated blood loss (mL): 0 IV fluids (mL): 400 Urine output (mL): 0 (No Ortiz to record output) Pathology: other (1) antrum x1, 2) fundus x1, 3) GE junction x2, 4) distal esophagus x2) Condition: stable Disposition: PACU
[2024-12-27 12:12] VITALS: BP 115/68; PULSE 87; RESP 16; TEMP 36.4; O2SAT 98
[2024-12-27 12:27] VITALS: BP 130/49; PULSE 85; RESP 16; O2SAT 96
[2024-12-27 12:38] VITALS: BP 113/63; PULSE 73; RESP 20; TEMP 36.4; O2SAT 97
== END 2024-12-27 13:08 | disposition home or self-care (01) ==
PROVIDERS: PCP Internal Medicine; Visit Provider Surgery
PROC: 0DJ08ZZ Inspection of Upper Intestinal Tract, Via Natural or Artificial Opening Endoscopic (ICD-10-PCS; CPT 43235; principal; 2024-12-27 11:40)
DX: K21.9 Gastro-esophageal reflux disease without esophagitis (principal); E66.01 Morbid (severe) obesity due to excess calories; Z68.41 Body mass index [BMI] 40.0-44.9, adult; K22.10 Ulcer of esophagus without bleeding; E78.5 Hyperlipidemia, unspecified; E03.9 Hypothyroidism, unspecified; R56.9 Unspecified convulsions; Z79.899 Other long term (current) drug therapy; Z88.8 Allergy status to other drugs, medicaments and biological substances; Z98.890 Other specified postprocedural states
CPT/HCPCS: 43239; 88305; 88313; 88342; J2704

== ENCOUNTER → 2024-12-27 09:49 | Outpatient (BNV) | payer OTHER, SELFPAY | PROVIDERS: PCP Internal Medicine; Visit Provider Surgery | DX: K22.10 Ulcer of esophagus without bleeding (principal) | CPT/HCPCS: 43239 ==

== ENCOUNTER 2025-01-03 10:21 | Outpatient (AMB) | payer OTHER, SELFPAY ==
--- NOTE | 2025-01-03 10:00 | A.OFFWM_ITS ---
Intake Intake Visit Reasons: TV Intake Part 2 Allergies levetiracetam (From [facility]) Allergy (Severe, Verified 12/27/24 09:59) ANAPHYLAXIS [facility] Medical History (Updated 12/27/24 @ 10:41 by Lynda Nowak, RN) ROCHELLE (obstructive sleep apnea) Hypothyroidism Hyperlipidemia GERD (gastroesophageal reflux disease) Morbid obesity Seizure Surgical History (Updated 12/27/24 @ 10:41 by Lynda Nowak RN) H/O endoscopy H/O colonoscopy History of brain shunt H/O Spinal surgery Family History Father No problems noted. Mother No problems noted. Social History Are you a primary resident care coordinator to a significant other at home: No Do you presently have visiting nurse or other home services: No Alcohol intake: never Patient Tobacco Use Status: Former Tobacco user Tobacco use type: Cigarette Years Smoked: 1 Current occupational status: employed Current occupation: [employer] Behavioral Health Assessment Weight Management Therapy Therapy Notes Details Patient is a 39-year-old male presenting for his second visit to continue the behavioral health () assessment as part of the surgical weight loss program. He was initially referred by his primary care provider (PCP) due to unsuccessful attempts at weight loss through various methods and declining physical health. The patient had explored the possibility of using GLP-1 medications; however, insurance denied coverage, prompting the PCP to refer him for evaluation for bariatric surgery. The patient disclosed a past history of addictive behaviors, primarily related to gambling, and associated use of cannabis, alcohol, and prescription pills during those periods. He reports being in recovery from these behaviors for over five years. He currently denies any history of anxiety, depression, or other mental health conditions and is not engaged in any mental health or substance use treatment at this time. He also reported being prescribed Prozac and april nazepam over 11 years ago during a particularly stressful period, but denies having received a formal mental health diagnosis. He has no history of psychiatric hospitalization, detox, or inpatient substance use treatment. Importantly, the patient does not report emotional or stress-related eating. His scores on the Binge Eating Scale (BES) indicate a low risk for disordered eating behaviors, and his PHQ-9 results show no active symptoms of depression. Mental status exam is within normal limits, indicating no current impairment in cognitive or emotional functioning. The patient reports a weight loss of 3 pounds since the last visit. He acknowledges that his progress has been slow, attributing this to challenges with consistency in following his meal and exercise plan. He expressed interest in receiving additional behavioral health support as he prepares for weight-loss surgery. At this time, the patient is cleared from a behavioral health perspective for bariatric surgery. He will return in one month for continued pre-operative support and will also follow up post-operatively. Presenting Concerns Referral Source WMP-Provider Reason for referral Completion of behavioral health assessment as part of process for weight-loss surgery. Precipitating Event Obesity Living Situation Current Living Situation Own At risk of losing current housing? No Satisfied with current living situation? Yes Comments PT lives with , his Daughter and her boyfriend. Food/Weight/Diet Expectations of change PT started the program on 11/10/2024 at 294Lbs, and the most recent weight as of 12/06/2024 was 285Lbs. He is not sure about the initial weight-loss goal as he initially came to the program for MWL and recently changed to SWL. The patient hopes to improve his lifestyle and be at a healthy weight. He wants to be at least 200Lbs, but is open to reaching his target weight goal based on BMI. PT is implementing the following: Current meal plan: a combination of shakes, bars, and 1 meal per day (10F/10F) Exercise plan: Treadmill - was given a plan Scale: yes Communication with provider: Wednesdays. History/Relationship with food PT reports he didn;t have a structured meal schedule or plan. He was used to skip meals, won't eat during the day and will have 1 big meal at the end of the day and then other snacks after. History/Relationship with weight PT denies struggling with obesity or being overweight in childhood. In 9th grade, he was 130Lbs, he started having valve issues and was started on a medication that impacted his weight and bumped him to 190Lbs in about 3-4 weeks. After that event, he was never able to be under 180 lbs. As a teen and young adult, he was very active and played basketball multiple dane es a week. In the last 10 years, the patient's Lowest weight was 230Lbs in and the highest 300Lbs History/Relationship with dieting Play basketball. PT reports he doesn't like exercise. Social History Family history and relationship PT got 5 years ago. He doesn't share kids with his , but she has 3 boys who are 13, 17, and 19, they all live with their father. He has 5 daughters from a previous relationship. Parents are alive, father is 74 y/o, his mother is 78 y/o, they live in the area. PT has 3 siblings on father's side, he's only child to his mother. PT reports he's not close to his siblings, but has a good relationship with parents. 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 He has shared custody of the kids, however they spend most of the time with their mom. He had 2 kids with his first partner, the 18 y/o lives in [place] with her mother, and the Oldest daughter, who is 19, lives with him. Developmental history and status PT denies any learning disabilities. 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 However, due to his condition he has had a lifelong of headaches and as a child his mother was overprotective and limited his sport engagement. Currently WNL. Social support , family (mother, father, aunt) Some co-workers. Community support Islam community Hindu/Spirituality Evangelic Cultural/Ethnic information . Born in [place], been in [place] 13 years ago. Legal Involvement and History Current or historical involvement with the legal system? None reported. Education Highest grade completed HS. 3 years of college for [employer]. Preferred learning style Auditory, Verbal and Visual Currently enrolled in educational program? No Interested in further educational program? 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 He wants to become a gambling counselor and also become a sport hedis review nurse for basketball. 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 ) Wants help to find employment? No Meaningful activities Islam, Softball on Sundays, family activities, camping. Financial Situation Describe current financial situation Occasional struggle and Often struggles with finance Financial assistance? None Service Service? No Mental Health and Addiction Treatment Current/Past substance abuse? Yes Comments Alcohol: 1 cup of wine, 0-1 x month. Cigarettes/Tobacco: None. Cannabis/Edibles: None. 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 Yes (Gambling issues since age 6 - in recovery 5 years ago.) Psychiatric history PT is in recovery from TAVERA and gambling over 5 years ago. Currently not in any type MH or TAVERA treatment. Over 11 years ago he was getting prescribed Prozac and clonazepam as he was going trough stressful events. Denies any formal MH diagnosis. Never hospitalized for mental health, denies any Hx of detox of TAVERA inpatient tx. Medical and Physical Health Summary Sexual History concerns None reported. Physical exam in the last year? Yes Pain Screening Current pain? No Pain in the last few months? No Medications Is the patient compliant with medications? No Does the patient have Herrera Guardian in place? Not applicable Does the patient use complimentary health approaches? No Trauma/Abuse History History of trauma? Yes (Medical trauma) Questionnaires PHQ-9 Over the last 2 weeks, how often have you been bothered by any of the following problems? 1. Little interest or pleasure in doing things: not at all 2. Feeling down, depressed, or hopeless: not at all 3. Trouble falling or staying asleep, or sleeping too much: not at all 4. Feeling tired or having little energy: not at all 5. Poor appetite or overeating: not at all 6. Feeling bad about yourself - or that you are a failure or have let yourself or your family down: not at all 7. Trouble concentrating on things, such as reading the newspaper or watching television: several days 8. Moving or speaking so slowly that other people could have noticed. Or the opposite - being so fidgety or restless that you have been moving around a lot more than usual: not at all 9. Thoughts that you would be better off or of hurting yourself in some way: not at all Total score: 1 Depression Screening Interpretation: Negative Depression Screening Done: Yes 23602 - PHQ-9 Billing: Yes Source: Developed by Drs. Angel Stevenson, Samanta Bravo, Petey Hamilton and colleagues, with an educational jennie from [employer]. Binge Eating Scale Group 1 A. I don't feel self-conscious about my wt. or body size when I'm with others. B. I feel concerned about how I look to others, but it normally does not make me fell disappointed with myself C. I do get self-conscious about my appearance and wt. which makes me feel disappointed in myself. D. I feel very self-conscious about my wt. and frequently I feel intense shame and disgust for myself. I try to avoid social contacts because of my self- consciousness. Response Group 1: D Group 2 A. I don't have any difficulty eating slowly in the proper manner. B. Although I seem to gobble down foods, I don't end up feeling stuffed because of eating to much. C. At times, I tend to eat quickly and then, I feel uncomfortably full afterwards. D. I have the habit of bolting down my food, without really chewing it. When this happens I usually feel uncomfortably stuffed because I've eaten to much. Response Group 2: C Group 3 A. I feel capable to control my eating urges when I want to. B. I feel like I have failed to control my eating more than the average person. C. I feel utterly helpless when it comes to feeling in control of my eating urges. D. Because I feel so helpless about controlling my eating I have become very desperate about trying to get control. Response Group 3: B Group 4 A. I don't have the habit of eating when I'm bored. B. I sometimes eat when I'm bored, but often I'm able to get busy and get my mind off food. C. I have a regular habit of eating when I'm bored, but occasionally, I can use some other activity to get my mind off eating. D. I have a strong habit of eating when I'm bored. Nothing seems to help me breath the habit. Response Group 4: B Group 5 A. I'm usually physically hungry when I eat something. B. Occasionally, I eat something on impulse even though I really am not hungry. C. I have the regular habit of eating foods, that I might not really enjoy, to satisfy a hungry feeling even though physically, I don't need the food. D. Although I'm not physically hungry, I get a hungry feeling in my mouth that only seems to be satisfied when I eat a food, like sandwich, that fills my mouth. Sometimes, when I eat the food to satisfy my mouth hunger, I then spit the food out so I won't gain weight. Response Group 5: B Group 6 A. I don't feel any guilt or self-hate after I overeat. B. After I overeat, occasionally I feel guilt or self-hate. C. Almost all the time I experience strong guilt or self-hate after I overeat. Response Group 6: B Group 7 A. I don't lose total control of my eating when dieting even after periods when I overeat. B. Sometimes when I eat a forbidden food on a diet, I feel like I blew it and eat even more. C. Frequently, I have the habit of saying to myself, I've blown it now, why not go all the way, when I overeat on a diet. When that happens I eat more. D. I have a regular habit of starting a strict diets for myself but I break the diets by going on an eating binge. My life seems to be either a feast or famine. Response Group 7: C Group 8 A. I rarely eat so much food that I feel uncomfortably stuffed afterwards. B. Usually about once a month, I each such a quantity of food, I end up feeling very stuffed. C. I have regular periods during the month when I eat large amounts of food, either at mealtime or at snacks. D. I eat so much food that I regularly feel quite uncomfortable after eating and sometimes a bit nauseous. Response Group 8: C Group 9 A. My level of calorie intake does not go up very high or go down very low on a regular basis. B. Sometimes after I overeat, I will try to reduce my caloric intake to almost nothing to compensate for the excess calories I've eaten. C. I have a regular habit of overeating during the night. It seems that my routine is not to be hungry in the morning but overeat in the evening. D. In my adult years, I have had week-long periods where I practically starve myself. This follows periods when I overeat. It seems I live a life of either feast or famine. Response Group 9: C Group 10 A. I usually am able to stop eating when I want to. I know when enough is enough. B. Every so often, I experience a compulsion to eat which I can't seem to control. C. Frequently, I experience strong urges to eat which I seem unable to control, but at other times I can control my eating urges. D. I feel incapable of controlling urges to eat. I have a fear of not being able to stop eating voluntarily. Response Group 10: B Group 11 A. I don't have any problem stopping eating when I feel full. B. I usually can stop eating when I feel full but occasionally overeat leaving me feeling uncomfortably stuffed. C. I have a problem stopping eating once I start and usually I feel uncomfortably stuffed after I eat a meal. D. Because I have a problem not being able to stop eating when I want, I sometimes have to induce vomiting to relieve my stuffed feeling. Response Group 11: C Group 12 A. I seem to eat just as much when I'm with others, Family social gatherings as when I'm by myself. B. Sometimes, when I'm with other persons, I don't eat as much as I want to eat because I'm self-conscious about my eating. C. Frequently, I eat only a small amount of food when others are present, because I'm very embarrassed about my eating. D. I feel so ashamed about overeating that I pick times to overeat when I know no one will see me. I feel like a closet eater. Response Group 12: A Group 13 A. I eat three meals a day with only an occasional between meal snack. B. I eat 3 meals a day, but I also normally snack between meals. C. When I am snacking heavily, I get in the habit of skipping regular meals. D. There are regular periods when I seem to be continually eating, with no planned meals. Response Group 13: A Group 14 A. I don't think much about trying to control unwanted eating urges. B. At least some of the time, I feel my thoughts are pre-occupied with trying to control my eating urges. C. I feel that frequently I spend much time thinking about how much I ate or about trying not to eat anymore. D. It seems to me that most of my waking hours are pre-occupied by thoughts about eating or not eating. I feel like I'm constantly struggling not to eat. Response Group 14: B Group 15 A. I don't think about food a great deal. B. I have strong craving for food but they last only for brief periods of time. C. I have days when I can't seem to think about anything else but food. D. Most of my days seem to be pre-occupied with thoughts about food. I feel like I live to eat. Response Group 15: B Group 16 A. I usually know whether or not I'm physically hungry. I take the right portion of food to satisfy me. B. Occasionally, I feel uncertain about knowing whether or not I'm physically hungry. A these times it's hard to know how much food I should take to satisfy me. C. Even though I might know how many calories I should eat, I don't have any idea what is a normal amount of food for me. Response Group 16: B Binge Eating Score: 21 Score less than 17 Minimal Risk Score between 18-26 Moderate Risk Score between 27-46 High Risk Assessment & Plan Assessment & Plan (1) Adjustment disorder: Code(s): F43.20 - Adjustment disorder, unspecified (2) Inappropriate diet or eating habits: Code(s): Z72.4 - Inappropriate diet and eating habits (3) Pre-bariatric surgery psychological evaluation: Code(s): Z71.89 - Other specified counseling Plan The patient has been cleared from a behavioral health standpoint and can be submitted for insurance approval when ready. However he will f/up with this provider again pre-op to work on habit building and readiness as he has not been consistent with meal/excercise plan provided and will also be seen at 1?4 weeks postoperatively to assess psychological adjustment and screen for any concerns. Next appointment: 01/31/25 at 9am, phone call Telehealth Telehealth Telehealth Platform: [facility] Location of provider rendering services: other (Home office. [place], [place]) Location of patient: address on file Patient Identification confirmed using: Name, : Yes Telehealth method: voice only Patient verbally consented to treatment: Yes Patient verbally consented to billing insurance company: Yes Patient informed of any privacy concerns related to visit: Yes Minutes spent on Phone/Video with Pt.: 60 Coding Level of Care Code Established Pt Tele Psytx >53 mins ([id number]) Patient Type Established Diagnoses Adjustment disorder F43.20 Inappropriate diet or eating habits Z72.4 Pre-bariatric surgery psychological evaluation Z71.89 Additional Codes PHQ-9 - 05295 - PHQ-9 Billing: Yes ([id number]) Time Spent (min) 60
--- OUTSIDE RECORDS SUMMARY | 2025-01-03 10:57 | XMS_ITS | Clinical Summary ---
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 13 tablet 5 12/13/19 25 bacitracin (bacitracin zinc) 500 unit/gram ointment Apply 1 Application topically 2 (two) times a day for 10 days. 120 g 5 12/16/19 25 ibuprofen (ADVIL,MOTRIN) 600 mg tablet Take 1 tablet (600 mg total) by mouth every 6 (six) hours if needed for mild pain for up to 10 days. 30 tablet 5 12/16/19 25 Active Problems No known active problems Encounters Date Type Department Care Team Description 12/05/2024 9:31 AM EDT - 12/05/2024 12:05 PM EDT Emergency [facility] Emergency [address] [place] [address] Cat bite, initial encounter (Primary Dx); Cat scratch Discharge Disposition: Home or Self Care from Last 3 Months Immunizations Name Administration Dates Next Due Tdap Tetanus diptheria acell ular pertussis (Boostrix; Adacel) 7yo and older 12/05/2024 Social History Tobacco Use Types Packs/Day Years Used Date Smoking Tobacco: Never Assessed Sex and Gender Information Value Date Recorded Sex Assigned at Not on file Legal Sex Male 3:49 AM EST Gender Identity Not on file Sexual Orientation Not on file Obstetrics History Last Filed Vital Signs Vital Sign Reading Time Taken Comments Blood Pressure 125/73 12/05/2024 9:17 AM EDT Pulse 85 12/05/2024 9:17 AM EDT Temperature 36.7 C (98.1 F) 12/05/2024 9:17 AM EDT Respiratory Rate 20 12/05/2024 9:17 AM EDT Oxygen Saturation 96% 12/05/2024 9:17 AM EDT Inhaled Oxygen Concentration - - Weight 130 kg (287 lb) 12/05/2024 9:17 AM EDT Height 172.7 cm (5' 8 ) 12/05/2024 9:17 AM EDT Body Mass Index 43.64 12/05/2024 9:17 AM EDT Plan of Treatment Health Maintenance Due Date Last Done Comments Hepatitis B Vaccines (1 of 3 - 19+ 3-dose series) 10/01/2003 Cholesterol Screening (Lipid Panel) 05/24/2022 Depression Screening 05/24/2022 HIV Screening 05/24/2022 Hepatitis C Screening 05/24/2022 Social Influencers of Health Screening 05/24/2022 COVID-19 Vaccine (4 - 2023-2 5 season) 2024 10/28/2021, 12/25/2020, 12/04/2020 Influenza Vaccine (#1) 2025 4, 03/17/2013, 06/01/2012 DTaP,Tdap,and Td Vaccines (3 - Td or Tdap) 12/05/2034 12/05/2024, 06/16/2012 Varicella Vaccines Aged Out 01/26/2014, 11/24/2013 No longer eligible based on patient's age to complete this topic Pneumococcal Vaccine: Pediatrics (0 to 5 Years) and At-Risk Patients (6 to 49 Years) Aged Out 04/18/2019 No longer eligible b ased on patient's age to complete this topic HIB Vaccines Aged Out No longer eligi [...] to complete this topic RSV Immunization Patients Under 20 months Aged Out No longer eligible b ased on patient's age to complete this topic Procedures Procedure Name Priority Date/Time Associated Diagnosis Comments XR HAND 3+ VIEWS LEFT STAT 12/05/2024 11:06 AM EDT from Last 3 Months Results * XR Hand 3+ Views Left (12/05/2024 11:06 AM EDT) Anatomical Region Laterality Modality Upper Extremities, Hand [facility] 12/05/2024 11:1 1 AM EDT Impressions 12/05/2024 11:13 AM EDT Impression: 1. No retained opaque foreign body or subcutaneous emphysema. 2. No evidence of fracture. Telerad SANDHYA ([id number]) -------- FINAL REPORT -------- Dictated By: Yessi Castro Dictated Date: 12/05/2024 11:11 ET Assigned Physician: Yessi Castro Reviewed and Electronically Signed By: Yessi Castro Signed Date: 12/05/2024 11:13 ET Workstation ID: [id number] Transcribed By: Self Edit Transcribed Date: 12/05/2024 11:11 ET Narrative 12/05/2024 11:13 AM EDT History: Cat bite to left hand. Findings: AP, oblique and lateral views of the left hand. Soft tissue swelling of the fourth digit is noted. No subcutaneous gas or retained opaque foreign body is seen. No fracture or dislocation is identified. The articular spaces are well- maintained. Procedure Note Yessi Castro MD - 12/05/2024 History: Cat bite to left hand. Findings: AP, oblique and lateral views of the left hand. Soft tissue swelling of the fourth digit is noted. No subcutaneous gas orretained opaque foreign body is seen. No fracture or dislocation is identified. The articular spaces arewell- maintained. IMPRESSION: Impression: 1. No retained opaque foreign body or subcutaneous emphysema. 2. No evidence of fracture. Telegladys ARTHUR ([id number]) -------- FINAL REPORT -------- Dictated By: Yessi Castro Dictated Date: 12/05/2024 11:11 ET Assigned Physician: Yessi Castro Reviewed and Electronically Signed By: Yessi Castro Signed Date: 12/05/2024 11:13 ET Workstation ID: [id number] Transcribed By: Self Edit Transcribed Date: 12/05/2024 11:11 ET Corine ARTHUR IMG XR PROCEDURES Final Result from Last 3 Months Insurance MEDICAID - [place] Care Teams Roof Mechanic Relationship Specialty Start Date End Date Physician, Pcp Unknown PCP - General 12/05/24
== END 2025-01-03 11:12 | disposition home or self-care (01) ==
LOC: HO.HBST 10:21
PROVIDERS: PCP Internal Medicine; Visit Provider Counselor Mental Health
DX: F43.20 Adjustment disorder, unspecified (principal); Z72.4 Inappropriate diet and eating habits; Z71.89 Other specified counseling
CPT/HCPCS: 90837

== ENCOUNTER 2025-01-17 11:40 | Emergency (ER) | payer OTHER, SELFPAY ==
[2025-01-17 11:55] VITALS: BP 130/76; PULSE 100; RESP 16; TEMP 36.8; O2SAT 96; BMI 43.7
--- NOTE | 2025-01-17 11:57 | ECG_ITS ---
Test Reason : chest pressure Blood Pressure : */* mmHG Vent. Rate : 108 BPM Atrial Rate : 108 BPM P-R Int : 122 ms QRS Dur : 88 ms QT Int : 344 ms P-R-T Axes : 3 1 -2 degrees QTcB Int : 460 ms Sinus tachycardia Otherwise normal ECG When compared with ECG of 21-Aug-2015 03:57, No significant change was found Referred By: Arturo Johnston Electronically Signed By: DILCIA DIAZ MD
--- NOTE | 2025-01-17 11:57 | ED.GENADULT ---
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 No recent travels no surgeries. Related Data Home Medications ?Medication ?Instructions ?Recorded ?Confirmed atorvastatin 20 mg tablet 20 mg PO DAILY 11/01/24 12/27/24 levothyroxine 100 mcg tablet 100 mcg PO DAILY 11/01/24 12/27/24 (Levo-T) omeprazole 20 mg capsule,delayed 20 mg PO DAILY 11/01/24 12/27/24 release Previous Rx's ?Medication ?Instructions ?Recorded cholecalciferol (vitamin D3) 125 125 mcg PO DAILY #90 caps 11/29/24 mcg (5,000 unit) capsule mecobalamin (vitamin B12) 1,000 1,000 mcg sublingual DAILY #90 tabs 11/29/24 mcg disintegrating tablet,sublingual Allergies Allergy/AdvReac Type Severity Reaction Status Date / Time levetiracetam (From [facility]) Allergy Severe ANAPHYLAXIS Verified 01/17/25 12:01 Review of Systems Constitutional: Constitutional: Reports as per [facility] Past Medical History Medical History (Updated 01/17/25 @ 13:22 by Lv Kaplan DO) ROCHELLE (obstructive sleep apnea) Hypothyroidism Hyperlipidemia GERD (gastroesophageal reflux disease) Morbid obesity Seizure Surgical History (Updated 12/27/24 @ 10:41 by Lynda Nowak RN) H/O endoscopy H/O colonoscopy History of brain shunt H/O Spinal surgery Family History Family History Father No problems noted. Mother No problems noted. Social History Social History Are you a primary child care sitter to a significant other at home: No Do you presently have visiting nurse or other home services: No Alcohol intake: never Patient Tobacco Use Status: Former Tobacco user Tobacco use type: Cigarette Years Smoked: 1 Advance Directives: No Advance Directives Information Provided: Yes Current occupational status: employed Current occupation: [employer] Physical Exam ED Vital Signs: Vital Signs - 24 hr 01/17/25 11:55 Temperature 98.2 F Pulse Rate 100 Respiratory Rate 16 Blood Pressure 130/76 Pulse Oximetry 96 Oxygen Delivery Method Room Air BMI result Body Mass Index 43.7 Const Other: Gen: ?Overall well-appearing patient CV: RRR, no obvious murmurs appreciated, no chest wall tenderness Resp: ?No wheezing rales rhonchi no stridor moving air well Abd: ?Bowel sounds are present, no tenderness no rebound no rigidity MSK: FROM, strength 5/5 all extremities Skin: Warm, dry, intact, Neuro: ?Alert and oriented x3, moving upper and lower extremities symmetrically, no obvious facial asymmetry noted Course Course Course Narrative: RME, this is a rapid medical exam performed by Everardo Johnston please refer to primary provider for complete H&P- 39-year-old male with past medical history significant for hypertension, GERD, hyperlipidemia, obesity presents for evaluation of chest tightness, upper abdominal pain, nausea and vomiting that started this morning. He reports feeling well when he woke up this morning and went to work but had a sudden onset of chest tightness with episodes of vomiting. Plan for labs, EKG, troponin and a urinalysis. Medical Decision Making Medical Decision Making MDM Narrative: Patient presented with chest pain in the setting of stress and anxiety, I provide him with outpatient resources, that is what he was interested in, however he is 39 years old, male, overweight, presented with chest pain as well also cardiac workup with considerations as below. I did not feel further PE workup is indicated they did not elicit any PE risk factors, patient's ECG was 108 bpm but he has not been sustained in the 100s, no hypoxia no pleurisy Disposition to be based on workup EKG changes, cardiac enzymes, he did not express SI or HI, no drug or alcohol use And abdominal exam is benign did not feel further imaging such as CT is indicated Differential Diagnosis Differential Diagnoses: The differential diagnosis associated with the presentation includes (ACS, pneumothorax, aortic dissection, PE, anxiety, pneumonia, biliary pathology) Admission/Observation Consideration of admission/observation: Escalation of care including admission/observation considered 2022 Emergency Medicine Coding Guide from [employer] on 01/17/2025 All calculations should be rechecked by clinician prior to use RESULT SUMMARY: 5 Estimated Level of Service Problems: High (5) Risk: Moderate (4) Data: Extensive (5) NARRATIVE MDM: This patient's problem complexity is High as patient: may have an acute or chronic illness/injury posing a threat to life or body function. This patient's risk is Moderate due to: overall presentation requiring evaluation for a potentially Moderate-risk process. This patient's data complexity is Extensive due to: -multiple tests ordered -independent interpretation of imaging or EKG INPUTS: Number and Complexity ?> 2 = 5: illness/injury w/life or body threat (b) Risk level ?> 3 = Moderate Tests ordered ?> 2 = 2 Tests results reviewed (excluding labs) ?> 1 = 1 Prior external notes reviewed ?> 0 = 0 Assessment requiring and independent historian ?> 0 = No Independent interpretation of tests ?> 1 = Yes Discussed management/test interpretation w/external professional ?> 0 = No Lab Data MDM Lab Attestation statement: I reviewed the patient's lab results. 01/17/25 12:09 01/17/25 12:09 Labs: Lab Results 01/17/25 Range/Units 12:09 WBC 6.1 (4.8-10.8) X10*3/uL RBC 5.12 (4.60-5.80) X10*6/uL Hgb 15.3 (14.0-18.0) g/dl Hct 44.0 (42.0-52.0) % MCV 85.9 (80.0-98.0) fL MCH 29.9 (27.0-33.0) pg MCHC 34.8 (31.0-36.0) g/dl RDW 12.5 (11.0-16.0) % Plt Count 275 (160-400) X10*3/uL MPV 9.2 L (9.4-12.4) fL Immature Gran % (Auto) 0.8 H (0.0-0.4) % Neut % (Auto) 52.5 (45-73) % Lymph % (Auto) 33.3 (20-40) % Foard % (Auto) 12.6 H (2-11) % Eos % (Auto) 0.3 (0-4) % Baso % (Auto) 0.5 (0-2) % Lymph # (Auto) 2.0 (1.2-4.9) X10*3/uL Foard # (Auto) 0.8 (0.1-1.2) X10*3/uL Eos # (Auto) 0.0 (0.0-0.4) X10*3/uL Baso # (Auto) 0.0 (0.0-0.2) X10*3/uL Abs Immat Gran (auto) 0.05 H (0.00-0.03) X10*3/uL Absolute Neuts (auto) 3.2 (2.0-8.3) x10*3/uL Absolute Nucleated RBC 0.000 (0.0-0.012) X10*3/uL Nucleated RBC % (auto) 0.0 (0.0-0.2) /100WBC Sodium 139 (135-145) mmol/L Potassium 4.0 (3.3-5.1) mmol/L Chloride 109 H (96-108) mmol/L Carbon Dioxide 22 (22-29) mmol/L Anion Gap 12 (12-20) BUN 11 (9-16) mg/dL Creatinine 0.96 (0.5-1.4) mg/dL Estim Creat Clear Calc 134.8 Estimated GFR > 60 Random Glucose 84 (60-115) mg/dL Calcium 9.1 (8.4-10.2) mg/dL Total Bilirubin 0.4 (0.0-1.0) mg/dL AST 35 (5-37) U/L ALT 39 (0-40) U/L Alkaline Phosphatase 74 (39-117) U/L Troponin I High Sens < 2.7 (<3.5-35.0) ng/L Total Protein 8.0 (6.5-8.0) g/dL Albumin 4.6 (3.5-5.0) g/dL Lipase 27 (8-78) U/L Independent Interpretation I performed an independent interpretation of an: EKG (108 beats per minute otherwise normal ECG without dysrhythmia, AV tamika blocks or ST-T changes to suspect underlying ACS, my independent interpretation) Tests considered The following testing was considered but not selected: Chest x-ray Prescription Management I considered prescription management with: Pain Medication Discharge Plan Discharge Clinical Impression: Chest pain, precordial, Anxiety, Vomiting Prescriptions: No Action cholecalciferol (vitamin D3) 125 mcg (5,000 unit) capsule 125 mcg PO DAILY Qty: 90 0RF mecobalamin (vitamin B12) 1,000 mcg tablet,disintegrating 1,000 mcg sublingual DAILY Qty: 90 0RF Rx Instructions: place tablet under tongue and allow to dissolve for at least30 secs before swallowing levothyroxine [Levo-T] 100 mcg tablet 100 mcg PO DAILY omeprazole 20 mg capsule,delayed release(DR/EC) 20 mg PO DAILY atorvastatin 20 mg tablet 20 mg PO DAILY Print Language: Frisian
[2025-01-17 12:14] LABS: MANUAL DIFF FLAG NO
[2025-01-17 12:15] LABS: Hematocrit 44.0 % (42.0-52.0); Hemoglobin 15.3 g/dl (14.0-18.0); Imm Gran Abs Auto 0.05 X10*3/uL (0.00-0.03); Imm Gran Pct Auto 0.8 % (0.0-0.4); Lymphocytes Absolute Auto 2.0 X10*3/uL (1.2-4.9); Mean Corpuscular HGB Conc 34.8 g/dl (31.0-36.0); Mean Corpuscular Hemoglobin 29.9 pg (27.0-33.0); Mean Corpuscular Volume 85.9 fL (80.0-98.0); NRBC Abs Auto 0.000 X10*3/uL (0.0-0.012); NRBC Pct Auto 0.0 /100WBC (0.0-0.2); Platelet Count 275 X10*3/uL (160-400); Red Blood Count 5.12 X10*6/uL (4.60-5.80); White Blood Count 6.1 X10*3/uL (4.8-10.8)
[2025-01-17 12:33] LABS: Alanine Aminotransferase 39 U/L (0-40); Albumin Level 4.6 g/dL (3.5-5.0); Alkaline Phosphatase 74 U/L (39-117); Anion Gap 12 (12-20); Aspartate Amino Transferase 35 U/L (5-37); Blood Urea Nitrogen 11 mg/dL (9-16); Calcium 9.1 mg/dL (8.4-10.2); Carbon Dioxide 22 mmol/L (22-29); Chloride 109 mmol/L (96-108); Creatinine Clr Calc Pharmacy 134.8; Estimated Glomerular Filt Rate > 60; Lipase 27 U/L (8-78); Potassium 4.0 mmol/L (3.3-5.1); Sodium 139 mmol/L (135-145); Total Protein 8.0 g/dL (6.5-8.0)
[2025-01-17 12:41] LABS: Troponin-I High Sensitivity < 2.7 ng/L (<3.5-35.0)
--- OUTSIDE RECORDS SUMMARY | 2025-01-17 13:04 | XMS_ITS | Clinical Summary ---
Author Organization [facility] Address [address] [place] [address] Phone Care Team Providers Care Shift Stacker Name Role Phone Physician, Pcp Unknown Primary Care Provider Marely vailable Allergies Active Allergy Reactions Criticality Noted Date Comments Levetiracetam 12/05/2024 Medications No known medications Active Problems No known active problems Encounters Date Type Department Care Team Description 12/05/2024 9:31 AM EDT - 12/05/2024 12:05 PM EDT Emergency [facility] Emergency [address] [place] [address] Cat bite, initial encounter (Primary [...] series) 10/01/2003 Cholesterol Screening (Lipid Panel) 05/24/2022 HIV Screening 05/24/2022 Hepatitis C Screening 05/24/2022 Social Influencers of Health Screening 05/24/2022 COVID-19 Vaccine (4 - 2023-2 5 season) 2024 10/28/2021, 12/25/2020, 12/04/2020 Depression Screening 06/21/2024 Influenza Vaccine (#1) 2025 4, 03/17/2013, 06/01/2012 [...] Laterality Modality Upper Extremities, Hand Left [facility] Imaging 12/05/2024 11:1 1 AM EDT Impressions 12/05/2024 11:13 AM EDT Impression: 1. No retained opaque foreign body or subcutaneous emphysema. 2. No evidence of fracture. Telerad PA ([id number]) -------- FINAL REPORT -------- Dictated By: Yessi Castro Dictated Date: 12/05/2024 11:11 ET Assigned Physician: Yessi Castro Reviewed and Electronically Signed By: Yessi Castro Signed Date: 12/05/2024 11:13 ET Workstation ID: [id number] Transcribed By: Self Edit Transcribed Date: 12/05/2024 [...] emphysema. 2. No evidence of fracture. Telerad PA ([id number]) -------- FINAL REPORT -------- Dictated By: Yessi Castro Dictated Date: 12/05/2024 11:11 ET Assigned Physician: Yessi Castro Reviewed and Electronically Signed By: Yessi Castro Signed Date: 12/05/2024 11:13 ET Workstation ID: [id number] Transcribed By: Self Edit Transcribed Date: 12/05/2024 11:11 ET Corine ARTHUR IMG XR PROCEDURES Final Result from Last 3 Months Insurance MEDICAID - [place] Care Teams Shift Stacker Relationship Specialty Start Date End Date Physician, Pcp Unknown PCP - General 12/05/24
[2025-01-17 13:05] VITALS: PULSE 82; RESP 18; O2SAT 97
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
--- NOTE | 2025-01-17 14:01 | PC.NURSE ---
El Hobson (CARE team) came to bedside to discuss mental health resources/options with the patient.
[2025-01-17 14:57] VITALS: BP 130/76; PULSE 82; RESP 18; TEMP 36.8; O2SAT 97
== END 2025-01-17 14:58 | disposition home or self-care (01) ==
PROVIDERS: Physician Assistant; Emergency Provider Emergency Medicine; PCP Internal Medicine
DX: R11.10 Vomiting, unspecified (principal); F41.9 Anxiety disorder, unspecified; R07.89 Other chest pain; E78.5 Hyperlipidemia, unspecified; E03.9 Hypothyroidism, unspecified
CPT/HCPCS: 36415; 80053; 83690; 84484; 85025; 93005; 99283

== ENCOUNTER → 2025-01-17 11:57 | Outpatient (BNV) | payer OTHER, SELFPAY | PROVIDERS: Emergency Provider Emergency Medicine; PCP Internal Medicine; Visit Provider Internal Medicine Cardiovascular Disease | DX: R00.0 Tachycardia, unspecified (principal) | CPT/HCPCS: 93010 ==

== ENCOUNTER 2025-01-29 09:12 | Outpatient (AMB) | payer OTHER, SELFPAY ==
--- NOTE | 2025-01-29 14:44 | MHC.WMTHER ---
Intake Intake Visit Reasons: TV BH F/U Allergies levetiracetam (From [facility]) Allergy (Severe, Verified 04/11/25 17:04) ANAPHYLAXIS [facility] Medical History (Updated 04/14/25 @ 00:01 by Background Daemon) Lower abdominal pain ROCHELLE (obstructive sleep apnea) Hypothyroidism Hyperlipidemia GERD (gastroesophageal reflux disease) Morbid obesity Seizure Surgical History (Updated 04/14/25 @ 00:01 by Background Daemon) H/O endoscopy H/O colonoscopy History of brain shunt H/O Spinal surgery Family History Father No problems noted. Mother No problems noted. Social History Household Members: Spouse and Children Housing: House Are you a primary critical care specialist to a significant other at home: No Do you presently have visiting nurse or other home services: No Alcohol intake: former Patient Tobacco Use Status: Former Tobacco user Tobacco use type: Cigarette Years Smoked: 1 service: No Current occupational status: employed Current occupation: [employer] Assessment Weight Management Therapy Therapy Notes Details Subjective: Patient reached out to request an earlier appointment due to new struggles. He presented to the ER on 01/17 for stomach issues and was informed he was experiencing a depressive episode with anxiety. Patient reports ongoing symptoms of anxiety and stress, and expresses concern about being off his treatment plan and the risk of relapse into addictive behaviors. He is currently attending couples counseling but feels he needs individual therapy for additional support. Objective: Patient presented for a supportive therapy session focused on symptom management. He appeared anxious but engaged, with appropriate affect and clear, coherent speech. CBT-based interventions were utilized to help the patient identify and challenge negative thought patterns contributing to his anxiety and depressive symptoms. Psychoeducation was provided regarding the relationship between mood, physical symptoms, and relapse risk. Mindfulness and grounding techniques were introduced to help manage acute anxiety and increase present-moment awareness. The patient was encouraged to develop a relapse prevention plan, including identifying triggers, early warning signs, and coping strategies. Motivational interviewing techniques were used to explore ambivalence about returning to his treatment plan and to reinforce his commitment to recovery. The importance of ongoing support and self-care was emphasized, and the patient was encouraged to continue attending couples counseling while also engaging in individual therapy. Assessment/Response: Mental status: Patient is alert and oriented x3, mood is described as ?anxious? and ?overwhelmed,? affect is congruent, thought process is logical and organized. No evidence of psychosis or mitchell. Risk reported/identified: None Assessment & Plan Assessment & Plan (1) Adjustment disorder: Code(s): F43.20 - Adjustment disorder, unspecified Plan Provider will offer short-term support while the patient secures a long-term provider. Sessions are scheduled for Wednesdays, with additional in-person meetings on Fridays pre-op as needed. Next appointment is scheduled for 01/31/2025. Patient will continue to practice CBT and mindfulness strategies, work on relapse prevention planning, and monitor symptoms. Telehealth Telehealth Telehealth [facility] Location of provider rendering services: practice address Location of patient: address on file Patient Identification confirmed using: Name, : Yes Telehealth method: voice only Patient verbally consented to treatment: Yes Patient verbally consented to billing insurance company: Yes Patient informed of any privacy concerns related to visit: Yes Minutes spent on Phone/Video with Pt.: 40 (Start: 8:20am - End time:9:00am) Coding Level of Care Code Established Pt Psytx 45 mins (22273) Patient Type Established Diagnoses Adjustment disorder F43.20 Time Spent (min) 40
== END 2025-01-29 16:36 | disposition home or self-care (01) ==
LOC: HO.HBST 09:12
PROVIDERS: PCP Internal Medicine; Visit Provider Counselor Mental Health
DX: F43.20 Adjustment disorder, unspecified (principal)
CPT/HCPCS: 90834

== ENCOUNTER 2025-02-09 13:54 | Outpatient (AMB) | payer OTHER, SELFPAY ==
--- OUTSIDE RECORDS SUMMARY | 2025-02-09 13:56 | XMS_ITS | Clinical Summary ---
Author Organization [facility] Address [address] [place] [address] Phone Care Team Providers Care It Lead Name Role Phone Physician, Pcp Unknown Primary Care Provider Marely vailable Allergies Active Allergy Reactions Criticality Noted Date Comments Levetiracetam 12/05/2024 Medications No known medications Active Problems No known active problems Encounters Date Type Department Care Team Description 12/05/2024 9:31 AM EDT - 12/05/2024 12:05 PM EDT Emergency [facility] Emergency [address] [place] [address] Cat bite, initial encounter (Primary [...] Laterality Modality Upper Extremities, Hand Left [facility] Imaging 12/05/2024 11:1 1 AM EDT Impressions 12/05/2024 11:13 AM EDT Impression: 1. No retained opaque foreign body or subcutaneous emphysema. 2. No evidence of fracture. Telerad PA ([id number]) -------- FINAL REPORT -------- Dictated By: Yessi Castro Dictated Date: 12/05/2024 11:11 ET Assigned Physician: Yessi Castro Reviewed and Electronically Signed By: Yessi Castro Signed Date: 12/05/2024 11:13 ET Workstation ID: [id number] Transcribed By: Self Edit Transcribed Date: 12/05/2024 [...] 2. No evidence of fracture. Telerad PA ([id number]) -------- FINAL REPORT -------- Dictated By: Yessi Castro Dictated Date: 12/05/2024 11:11 ET Assigned Physician: Yessi Castro Reviewed and Electronically Signed By: Yessi Castro Signed Date: 12/05/2024 11:13 ET Workstation ID: [id number] Transcribed By: Self Edit Transcribed Date: 12/05/2024 11:11 ET Corine ARTHUR IMG XR PROCEDURES Final Result from Last 3 Months Insurance MEDICAID - [place] Care Teams It Lead Relationship Specialty Start Date End Date Physician, Pcp Unknown PCP - General 12/05/24
--- NOTE | 2025-02-09 14:15 | A.OFFWM_ITS ---
Intake Intake Visit Reasons: OV BH F/U Allergies levetiracetam (From [facility]) Allergy (Severe, Verified 04/11/25 17:04) ANAPHYLAXIS [facility] Medical History (Updated 04/19/25 @ 00:02 by Background Daemon) Lower abdominal pain ROCHELLE (obstructive sleep apnea) Hypothyroidism Hyperlipidemia GERD (gastroesophageal reflux disease) Morbid obesity Seizure Surgical History (Updated 04/14/25 @ 00:01 by Background Daemon) H/O endoscopy H/O colonoscopy History of brain shunt H/O Spinal surgery Family History Father No problems noted. Mother No problems noted. Social History Household Members: Spouse and Children Housing: House Are you a primary skin care technician to a significant other at home: No Do you presently have visiting nurse or other home services: No Alcohol intake: former Patient Tobacco Use Status: Former Tobacco user Tobacco use type: Cigarette Years Smoked: 1 service: No Current occupational status: employed Current occupation: [employer] Assessment Weight Management Therapy Therapy Notes Details Subjective: The patient reports feeling generally well but acknowledges not adhering to her prescribed meal and exercise plan. She identified specific triggers that have contributed to lapses in her routine and described her typical responses to these triggers. Objective: The patient attended an in-person behavioral health follow-up session. * Conducted a thorough review of current functioning, including barriers to adherence with meal and exercise plans. * Utilized cognitive-behavioral therapy (CBT) interventions to help the patient identify and challenge unhelpful thoughts and beliefs related to her triggers. * Practiced cognitive restructuring and problem-solving techniques to address recent increases in anxiety. * Introduced and rehearsed new constructive coping skills, including relaxation exercises, mindfulness strategies, and the development of an action plan for managing future triggers. * Provided psychoeducation on the importance of consistency in self-care routines and the impact of behavioral activation on mood and motivation. * Encouraged the use of a daily log to track triggers, responses, and progress with coping strategies. Assessment/Response: * Mental status: The patient was alert and oriented to person, place, and time. Mood was described as stable, with some anxiety noted when discussing triggers. Affect was congruent with mood. Thought processes were logical and goal-directed. No evidence of psychosis or cognitive impairment. * Risk reported/identified: None. Assessment & Plan Assessment & Plan (1) Adjustment disorder: Code(s): F43.20 - Adjustment disorder, unspecified (2) Inappropriate diet or eating habits: Code(s): Z72.4 - Inappropriate diet and eating habits Plan Continue to reinforce CBT-based coping strategies and support adherence to meal and exercise plans. Follow up in 2 weeks. PT will make carrol in the front. [place] [id number] Psytx 45 mins Patient Type Established Diagnoses Adjustment disorder F43.20 Inappropriate diet or eating habits Z72.4 Time Spent (min) 45
== END 2025-02-09 15:32 | disposition home or self-care (01) ==
LOC: HO.HBST 13:54
PROVIDERS: PCP Internal Medicine; Visit Provider Counselor Mental Health
DX: F43.20 Adjustment disorder, unspecified (principal); Z72.4 Inappropriate diet and eating habits
CPT/HCPCS: 90834

== ENCOUNTER 2025-03-16 09:06 | Outpatient (AMB) | payer OTHER, SELFPAY ==
--- NOTE | 2025-03-16 09:10 | MHC.WMTHER ---
Intake Intake Visit Reasons: OV BH F/U Allergies levetiracetam (From [facility]) Allergy (Severe, Verified 01/17/25 12:01) ANAPHYLAXIS [facility] Medical History (Updated 01/18/25 @ 00:00 by Celia Tobar) ROCHELLE (obstructive sleep apnea) Hypothyroidism Hyperlipidemia GERD (gastroesophageal reflux disease) Morbid obesity Seizure Surgical History (Updated 12/27/24 @ 10:41 by Lynda Nowak RN) H/O endoscopy H/O colonoscopy History of brain shunt H/O Spinal surgery Family History Father No problems noted. Mother No problems noted. Social History Are you a primary home care giver to a significant other at home: No Do you presently have visiting nurse or other home services: No Alcohol intake: never Patient Tobacco Use Status: Former Tobacco user Tobacco use type: Cigarette Years Smoked: 1 Current occupational status: employed Current occupation: [employer] Assessment Weight Management Therapy Therapy Notes Details Subjective: The patient reports feeling better since the last appointment but acknowledges not sending in measurements and not adhering to the meal and exercise plan. He continues to experience challenges in his relationship with his and seeks support in managing his reactions, being more assertive, and expressing his frustrations in a way that does not offend her. Objective: The patient presented in person for a behavioral health appointment. Interventions provided during the session included: Cognitive Behavioral Therapy (CBT) techniques to identify and challenge unhelpful thoughts related to self-efficacy and weight management. Cognitive triage to help the patient prioritize stressors and focus on actionable steps. Exploration of core beliefs and cognitive biases impacting his motivation and interpersonal interactions. Assertiveness training, including role-playing scenarios to practice expressing needs and frustrations constructively. Discussion of factors within and outside of his control, with emphasis on strategies to regain momentum with his weight loss plan. Collaborative development of a plan to re-engage with self-monitoring, meal planning, and physical activity. Assessment/Response: Mental status: The patient was alert and oriented, with appropriate affect and cooperative behavior. Thought processes were logical and goal-directed. No evidence of psychosis or cognitive impairment. Risk reported/identified: None Assessment & Plan Assessment & Plan (1) Adjustment disorder: Code(s): F43.20 - Adjustment disorder, unspecified (2) Inappropriate diet or eating habits: Code(s): Z72.4 - Inappropriate diet and eating habits Plan Continue behavioral health support with a focus on CBT, assertiveness training, and relapse prevention strategies. Patient to resume self-monitoring and adherence to meal/exercise plan. Follow-up in 2?3 weeks. Next appointment scheduled for 03/30/25 at 9:00 am (OV). Coding Level of Care Code Established Pt Psytx >53 mins ([id number]) Patient Type Established Diagnoses Adjustment disorder F43.20 Inappropriate diet or eating habits Z72.4 Time Spent (min) 60
--- OUTSIDE RECORDS SUMMARY | 2025-03-16 09:46 | XMS_ITS | Clinical Summary ---
Author Organization [facility] Address [address] [place] [address] Phone Care Team Providers Care Stenocaptioner Name Role Phone Physician, Pcp Unknown Primary Care Provider Marely vailable Allergies Active Allergy Reactions Criticality Noted Date Comments Levetiracetam 12/05/2024 Medications No known medications Active Problems No known active problems Immunizations Name Administration Dates Next Due Tdap [...] 05/24/2022 Social Influencers of Health Screening 05/24/2022 Depression Screening 06/21/2024 COVID-19 Vaccine (4 - 2024-2 6 season) 2025 10/28/2021, 12/25/2020, 12/04/2020 Influenza Vaccine (#1) 2025 [...] on patient's age to complete this topic Insurance MEDICAID - [place] Care Teams Stenocaptioner Relationship Specialty Start Date End Date Physician, Pcp Unknown PCP - General 12/05/24
== END 2025-03-16 10:47 | disposition home or self-care (01) ==
LOC: HO.HBST 09:06
PROVIDERS: PCP Internal Medicine; Visit Provider Counselor Mental Health
DX: F43.20 Adjustment disorder, unspecified (principal); Z72.4 Inappropriate diet and eating habits
CPT/HCPCS: 90837

== ENCOUNTER 2025-03-16 09:06 | Outpatient (REF) | payer OTHER, SELFPAY ==
--- NOTE | ~2025-03-16 | XR_ITS ---
EXAMINATION: XR CHEST CLINICAL INFORMATION: E66.01 - Morbid (severe) obesity due to excess calories COMPARISON: None available. TECHNIQUE: PA and lateral views FINDINGS: No hyperinflation. Poor inspiration. No consolidation, pleural effusion or thorax. Cardiomediastinal silhouette size is normal. Multilevel mild spondylosis. There is a catheter overlapping left-sided pneumothorax, likely anteriorly. XR/XR chest 2V IMPRESSION: No acute airspace disease. Probable left-sided shunt catheter. Electronically signed by: De Parr MD 03/16/2025 11:45 AM EDT
--- NOTE | 2025-03-16 10:33 | ECG_ITS ---
Test Reason : mor obs Blood Pressure : */* mmHG Vent. Rate : 70 BPM Atrial Rate : 70 BPM P-R Int : 114 ms QRS Dur : 86 ms QT Int : 418 ms P-R-T Axes : 12 10 17 degrees QTcB Int : 451 ms Normal sinus rhythm Normal ECG When compared with ECG of 17-Jan-2025 12:01, Vent. rate has decreased by 38 bpm Referred By: Williams Buitrago Electronically Signed By: Bert Constantino
== END 2025-03-16 09:07 | disposition home or self-care (01) ==
LOC: HO.XRAY 09:06
PROVIDERS: Absent Provider Surgery; PCP Internal Medicine; Visit Provider Counselor Mental Health
DX: E66.01 Morbid (severe) obesity due to excess calories (principal); K21.9 Gastro-esophageal reflux disease without esophagitis; E03.9 Hypothyroidism, unspecified; E78.5 Hyperlipidemia, unspecified
CPT/HCPCS: 71046; 93005

== ENCOUNTER → 2025-03-16 10:33 | Outpatient (BNV) | payer OTHER, SELFPAY | PROVIDERS: Absent Provider Surgery; PCP Internal Medicine; Visit Provider Internal Medicine Cardiovascular Disease | DX: E66.01 Morbid (severe) obesity due to excess calories (principal); Z68.41 Body mass index [BMI] 40.0-44.9, adult | CPT/HCPCS: 93010 ==

== ENCOUNTER → 2025-03-16 10:49 | Outpatient (BNV) | payer OTHER, SELFPAY | PROVIDERS: Absent Provider Surgery; PCP Internal Medicine; Visit Provider Radiology Diagnostic Radiology | DX: E66.01 Morbid (severe) obesity due to excess calories (principal); Z68.41 Body mass index [BMI] 40.0-44.9, adult | CPT/HCPCS: 71046 ==

== ENCOUNTER 2025-03-30 09:01 | Outpatient (AMB) | payer OTHER, SELFPAY ==
--- NOTE | 2025-03-30 09:05 | A.OFFWM_ITS ---
Intake Intake Visit Reasons: OV BH F/U Allergies levetiracetam (From [facility]) Allergy (Severe, Verified 05/03/25 11:48) ANAPHYLAXIS [facility] Medical History (Updated 04/19/25 @ 00:02 by Background Daemon) Lower abdominal pain ROCHELLE (obstructive sleep apnea) Hypothyroidism Hyperlipidemia GERD (gastroesophageal reflux disease) Morbid obesity Seizure Surgical History (Updated 04/14/25 @ 00:01 by Background Daemon) H/O endoscopy H/O colonoscopy History of brain shunt H/O Spinal surgery Family History Father No problems noted. Mother No problems noted. Social History Household Members: Spouse and Children Housing: House Are you a primary laboratory animal care veterinarian to a significant other at home: No Do you presently have visiting nurse or other home services: No Alcohol intake: former Patient Tobacco Use Status: Former Tobacco user Tobacco use type: Cigarette Years Smoked: 1 service: No Current occupational status: employed Current occupation: [employer] Assessment Weight Management Therapy Therapy Notes Details Subjective: The patient reports that he communicated with his MD as previously advised. His most recent weight was 283.6 lbs as of 03/26/2025. He is making efforts to follow the meal plan but experiences challenges consuming shakes or bars during the workday due to the nature of his job. He notes some improvement in his relationship with his , though occasional misunderstandings persist, often related to her responses and his symptoms of anxiety. Objective: The patient attended his behavioral health follow-up in person. Interventions focused on problem-solving strategies to address barriers to meal plan adherence at work, including identifying portable, discreet options and planning for brief breaks. CBT-based techniques were used to help the patient manage anxiety and improve communication skills within his relationship. We explored ways to recognize and reframe anxious thoughts, and practiced assertive communication to reduce misunderstandings with his . Psychoeducation was provided on the importance of flexibility and self-compassion when facing challenges in both dietary adherence and interpersonal relationships. Assessment/Response: * Mental status: Alert and oriented, mood is stable, affect congruent, thought process logical and goal-directed, no evidence of psychosis. * Risk reported/identified: None Assessment & Plan Assessment & Plan (1) Adjustment disorder: Code(s): F43.20 - Adjustment disorder, unspecified (2) Inappropriate diet or eating habits: Code(s): Z72.4 - Inappropriate diet and eating habits Plan Continue behavioral health support with a focus on meal plan adherence and anxiety management. Encourage ongoing communication with his MD and continued use of coping strategies for relationship stress. * Next carrol: 04/11/2025 at 2pm, via Telehealth. [place] [address] Psytx >53 mins Patient Type Established Diagnoses Adjustment disorder F43.20 Inappropriate diet or eating habits Z72.4 Time Spent (min) 55
--- OUTSIDE RECORDS SUMMARY | 2025-03-30 09:27 | XMS_ITS | Clinical Summary ---
Author Organization [facility] Address [address] [place] [address] Phone Care Team Providers Care Helpdesk Analyst Name Role Phone Sarah Dang MD Primary Care Provider [phone] Allergies Active Allergy Reactions Criticality Noted Date Comments Levetiracetam 12/05/2024 Medications ibuprofen (ADVIL,MOTRIN) 400 mg tablet Take 1 tablet (400 mg total) by mouth every 6 (six) hours if needed for mild pain for up to 10 days. 30 tablet 03/24/2025 Active Active Problems No known active problems Encounters Date Type Department Care Team Description 03/24/2025 5:19 AM EDT - 03/24/2025 10:30 AM EDT Emergency [facility] Emergency [address] [place] [address] Eleazar Lam MD Mogul, Ashley, MD Biliary colic (Primary Dx) Discharge Disposition: Home or Self Care from Last 3 Months Immunizations Immunization Administration Dates Next Due Tdap Tetanus diptheria acell ular pertussis (Boostrix; Adacel) 7yo and older 12/05/2024 Social History Tobacco Use Types Packs/Day Years Used Date Smoking Tobacco: Never Smokeless Tobacco: Never Tobacco Cessation:Counseling Given: Not Answered Sex and Gender Information Value Date Recorded Sex Assigned at Not on file Legal Sex Male 3:49 AM EST Gender Identity Not on file Sexual Orientation Not on file Obstetrics History Last Filed Vital Signs Vital Sign Reading Time Taken Comments Blood Pressure 118/78 03/24/2025 10:30 AM EDT Pulse 70 03/24/2025 10:30 AM EDT Temperature 36.8 C (98.2 F) 03/24/2025 10:30 AM EDT Respiratory Rate 17 03/24/2025 10:30 AM EDT Oxygen Saturation 98% 03/24/2025 10:30 AM EDT Inhaled Oxygen Concentration - - Weight 128 kg (283 lb) 03/24/2025 5:07 AM EDT Height 172.7 cm (5' 8 ) 03/24/2025 5:07 AM EDT Body Mass Index 43.03 03/24/2025 5:07 AM EDT Plan of Treatment Health Maintenance Due Date Last Done Comments Hepatitis B Vaccines (1 of 3 - 19+ 3-dose series) 10/01/2003 HPV Vaccines (1 - 3-dose SCD M series) 10/01/2011 Cholesterol Screening (Lipid Panel) 05/24/2022 HIV Screening 05/24/2022 Hepatitis C Screening 05/24/2022 Social Influencers of Health Screening 05/24/2022 Depression Screening 06/21/2024 COVID-19 Vaccine (4 - 2024-2 6 season) 2025 10/28/2021, 12/25/2020, 12/04/2020 Influenza Vaccine (#1) 2025 4, 03/17/2013, 06/01/2012 DTaP,Tdap,and Td Vaccines (3 - Td or Tdap) 12/05/2034 12/05/2024, 06/16/2012 RSV Immunization Adult Patients (1 - 1-dose 75+ series) 10/01/2059 Varicella Vaccines Aged Out 01/26/2014, 11/24/2013 No [...] Procedure Name Priority Date/Time Associated Diagnosis Comments US ABDOMEN LIMITED STAT 03/24/2025 7: 23 AM EDT CBC WITH AUTO DIFFERENTIAL STAT 03/24/2025 5:46 AM EDT LIPASE STAT 03/24/2025 5:46 AM EDT COMPREHENSIVE METABOLIC PANEL STAT 03/24/2025 5:46 AM EDT CBC AND DIFFERENTIAL STAT 03/24/2025 5:46 AM EDT from Last 3 Months Results * US Abdomen Limited (03/24/2025 7:23 AM EDT) Anatomical Region Laterality Modality Body Ultrasound 03/24/2025 7:59 AM EDT Impressions 03/24/2025 7:59 AM EDT Cholelithiasis without sonographic evidence for acute cholecystitis. Hepatic steatosis. This document has been electronically signed by: Piyush Eduardo MD on 03/24/2025 07:59:39 Narrative 03/24/2025 7:59 AM EDT INDICATION: ruq pain, n/v US abdomen limited Comparison: None provided Findings: The liver echogenicity is increased. The liver measures 15.5 cm in length. The IVC is visualized. The pancreas is suboptimally assessed due to bowel gas artifact. The main portal vein is patent. There are non mobile stones in the gallbladder. The gallbladder wall is nonthickened at 2 mm. Common bile duct is nondilated at 4 mm. Sonographic Martel's sign is reported negative by the technologist. The right kidney measures 12.0 cm in length. No hydronephrosis. No evidence for ascites. Procedure Note Piyush Eduardo - 03/24/2025 INDICATION: ruq pain, n/v US abdomen limited Comparison: None provided Findings: The liver echogenicity is increased. The liver measures 15.5 cm inlength. The IVC is visualized. The pancreas is suboptimally assessed due tobowel gas artifact. The main portal vein is patent. There are non mobilestones in the gallbladder. The gallbladder wall is nonthickened at 2 mm. Common bile duct is nondilated at 4 mm. Sonographic Martel's sign is reported negative by the technologist. The right kidney measures 12.0 cm inlength. No hydronephrosis. No evidence for ascites. IMPRESSION: Cholelithiasis without sonographic evidence for acute cholecystitis. Hepatic steatosis. This document has been electronically signed by: Piyush Eduardo MD on 03/24/2025 07:59:39 us Eleazar Lam MD IM US PROCEDURES Final Resu lt * CBC auto differential (03/24/2025 5:46 AM EDT) WBC 8.1 4.8 - 10.8 K/mcL LAB HEMETOLOGY METHOD 03/24/2025 6:07 AM [facility] RBC 4.90 4.50 - 5.50 M/mcL LAB HEMETOLOGY METHOD 03/24/2025 6:07 AM [facility] Hemoglobin 14.4 13.5 - 17.5 g/dL LAB HEMETOLOGY METHOD 03/24/2025 6:07 AM [facility] Hematocrit 43.4 42.0 - 54.0 % LAB HEMETOLOGY METHOD 03/24/2025 6:07 AM [facility] MCV 88.8 79.0 - 98.0 FL LAB HEMETOLOGY METHOD 03/24/2025 6:07 AM [facility] MCH 29.4 27.0 - 32.0 pcg LAB HEMETOLOGY METHOD 03/24/2025 6:07 AM [facility] MCHC 33.2 32.0 - 37.0 g/dL LAB HEMETOLOGY METHOD 03/24/2025 6:07 AM [facility] RDW 12.4 11.0 - 15.0 % LAB HEMETOLOGY METHOD 03/24/2025 6:07 AM [facility] Platelets 270 130 - 400 K/mcL LAB HEMETOLOGY METHOD 03/24/2025 6:07 AM [facility] MPV 9.2 7.0 - 11.0 FL LAB HEMETOLOGY METHOD 03/24/2025 6:07 AM [facility] NRBC 0.0 <1.0 % LAB HEMETOLOGY METHOD 03/24/2025 6:07 AM [facility] NRBC Absolute 0.00 <0.10 K/mcL LAB HEMETOLOGY METHOD 03/24/2025 6:07 AM [facility] Neutrophils Relative 64.8 % LAB HEMETOLOGY METHOD 03/24/2025 6:07 AM [facility] Lymphocytes Relative 24.3 % LAB HEMETOLOGY METHOD 03/24/2025 6:07 AM [facility] Monocytes Relative 9.9 % LAB HEMETOLOGY METHOD 03/24/2025 6:07 AM [facility] Eosinophils Relative 0.6 % LAB HEMETOLOGY METHOD 03/24/2025 6:07 AM [facility] Basophils Relative 0.2 % LAB HEMETOLOGY METHOD 03/24/2025 6:07 AM [facility] Immature Granulocytes Relative 0.2 % LAB HEMETOLOGY METHOD 03/24/2025 6:07 AM [facility] Neutrophils Absolute 5.21 1.50 - 7.00 K/mcL LAB HEMETOLOGY METHOD 03/24/2025 6:07 AM [facility] Lymphocytes Absolute 1.96 1.00 - 5.00 K/mcL LAB HEMETOLOGY METHOD 03/24/2025 6:07 AM [facility] Monocytes Absolute 0.80 0.20 - 1.00 K/mcL LAB HEMETOLOGY METHOD 03/24/2025 6:07 AM EDT [facility] Eosinophils Absolute 0.05 0.00 - 0.50 K/[facility] LAB HEMETOLOGY METHOD 03/24/2025 6:07 AM EDT [facility] Basophils Absolute 0.02 0.00 - 0.20 K/[facility] LAB HEMETOLOGY METHOD 03/24/2025 6:07 AM EDT [facility] Immature Granulocytes Absolute 0.02 0.00 - 0.03 K/[facility] LAB HEMETOLOGY METHOD 03/24/2025 6:07 AM EDT [facility] Blood Venous blood specimen / Unknown Venipuncture / Unknown 03/24/2025 5:46 AM EDT 03/24/2025 5:54 AM EDT Eleazar Lam MD LAB BLOOD ORDERABLES Final R esult Performing Organization Address City/[facility]/ZIP Co de Phone Number [facility] [address] [place] [address], [place] [phone] * Lipase (03/24/2025 5:46 AM EDT) [facility] Lipase 49 13 - 75 unit/L LAB CHEMISTRY METHOD 03/24/2025 6:21 AM EDT [facility] Blood Venous blood specimen / Unknown Venipuncture / Unknown 03/24/2025 5:46 AM EDT 03/24/2025 5:54 AM EDT Eleazar Lam MD LAB BLOOD ORDERABLES Final R esult [facility] [address] [place] [address], [place] [phone] * Comprehensive metabolic panel (03/24/2025 5:46 AM EDT) Pathologist [facility] Sodium 135 133 - 145 mmol/L LAB CHEMISTRY METHOD 03/24/2025 6:21 AM [facility] Potassium 4.1 3.5 - 5.5 mmol/L LAB CHEMISTRY METHOD 03/24/2025 6:21 AM [facility] Chloride 105 96 - 110 mmol/L LAB CHEMISTRY METHOD 03/24/2025 6:21 AM [facility] CO2 27 21 - 32 mmol/L LAB CHEMISTRY METHOD 03/24/2025 6:21 AM [facility] Anion Gap 3 3 - 11 LAB CHEMISTRY METHOD 03/24/2025 6:21 AM [facility] Glucose 98 70 - 100 mg/dL LAB CHEMISTRY METHOD 03/24/2025 6:21 AM [facility] BUN 18 5 - 25 mg/dL LAB CHEMISTRY METHOD 03/24/2025 6:21 AM [facility] Creatinine 0.89 0.70 - 1.30 mg/dL LAB CHEMISTRY METHOD 03/24/2025 6:21 AM [facility] eGFR 111 >=60 mL/min/1. 73m2 LAB CHEMISTRY METHOD 03/24/2025 6:21 AM [facility] Comment:Calculation based on the Chronic Kidney Disease Epidemiology Collaboration (CKD-EPI) equation refit without adjustment for race. BUN/Creatinine Ratio 20.2 LAB CHEMISTRY METHOD 03/24/2025 6:21 AM [facility] Calcium 9.0 8.5 - 10.5 mg/dL LAB CHEMISTRY METHOD 03/24/2025 6:21 AM [facility] AST (SGOT) 22 10 - 42 unit/L LAB CHEMISTRY METHOD 03/24/2025 6:21 AM [facility] ALT (SGPT) 36 10 - 60 unit/L LAB CHEMISTRY METHOD 03/24/2025 6:21 AM [facility] Alkaline Phosphatase 70 42 - 121 unit/L LAB CHEMISTRY METHOD 03/24/2025 6:21 AM EDT [facility] Total Protein 7.4 6.0 - 8.0 g/dL LAB CHEMISTRY METHOD 03/24/2025 6:21 AM EDT [facility] Albumin 3.8 3.2 - 5.0 g/dL LAB CHEMISTRY METHOD 03/24/2025 6:21 AM EDT [facility] Total Bilirubin 0.3 0.0 - 1.4 mg/dL LAB CHEMISTRY METHOD 03/24/2025 6:21 AM EDT [facility] Blood Venous blood specimen / Unknown Venipuncture / Unknown 03/24/2025 5:46 AM EDT 03/24/2025 5:54 AM EDT us Eleazar Lam MD LAB BLOOD ORDERABLES Final R esult [facility] [address] [place] [address], [place] [phone] from Last 3 Months Insurance MEDICAID - [place] Care Teams Helpdesk Analyst Relationship Specialty Start Date End Date Sarah Dang MD [address] [place] [address] [place] [address] PCP - General Internal Medicine 03/24/25
== END 2025-03-30 10:20 | disposition home or self-care (01) ==
PROVIDERS: PCP Internal Medicine; Visit Provider Counselor Mental Health
DX: F43.20 Adjustment disorder, unspecified (principal); Z72.4 Inappropriate diet and eating habits
CPT/HCPCS: 90837

== ENCOUNTER 2025-04-04 12:54 | Inpatient (IN) | payer OTHER, SELFPAY ==
--- NOTE | ~2025-04-04 | US_ITS ---
EXAMINATION: US ABDOMEN LIMITED CLINICAL INFORMATION: Right upper quadrant pain.. COMPARISON: None available. TECHNIQUE: Real-time ultrasound right upper quadrant abdomen using grayscale and color Doppler technique. FINDINGS: No peripancreatic fluid collection. Liver measures 13 cm maximum length. Increased echotexture. No surface nodularity. 0.7 cm anechoic lesion without flow on color Doppler interrogation, right hepatic lobe. No intrahepatic biliary ductal dilatation. Gallbladder is packed with the intraluminal hyperechoic lesion centered posterior shadowing. Gallbladder wall measures 3 mm. No pericholecystic fluid collection. There is sonographic Martel sign is elicited by the technologist. Common bile duct measures 3 mm. Right kidney measures 11 cm without solid or cystic lesion or hydronephrosis. Normal echotexture. Normal renal cortical thickness. No ascites. US/US abdomen limited IMPRESSION: Concerning acute calculus cholecystitis in the correct clinical settings. No choledocholithiasis. 0.7 cm cystic lesion, right hepatic lobe. No hydronephrosis, right kidney. No ascites. Electronically signed by: De Parr MD 04/04/2025 01:59 PM EDT
--- NOTE | ~2025-04-04 | CT_ITS ---
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 Liver, spleen, adrenal glands, pancreas in kidneys are unremarkable. Cholelithiasis. No definite CT evidence to suggest acute cholecystitis. No obstructing renal, ureteral or bladder calculi. Nonaneurysmal abdominal aorta. No free air or free fluid. Unremarkable urinary bladder. Normal prostate. Stomach is mildly distended with gas and debris. Nondilated small bowel. Colon is unremarkable. No acute appendicitis. No pathologically enlarged lymph nodes. No acute osseous abnormality. No lytic or sclerotic osseous lesions. Impression: 1. Cholelithiasis without definite CT evidence to suggest acute cholecystitis. 2. Additional findings as above. This document has been electronically signed by: Tiago Fraire MD on 04/04/2025 21:11:03
[2025-04-04 12:59] VITALS: BP 126/87; PULSE 86; RESP 18; TEMP 36.4; O2SAT 98; BMI 43.0
--- NOTE | 2025-04-04 13:02 | ED_ITS ---
HPI - Abdominal Pain General Chief Complaint: Abdominal Pain Stated Complaint: possible gallstones , abd pain Time Seen by Provider: 04/04/25 16:46 Source: patient Mode of arrival: ambulatory Limitations: no limitations History of Present Illness ED Provider: Dr. Cardozo HPI narrative: 39-year-old male history of cholelithiasis, hyperlipidemia hypothyroidism presented hospital today for right upper quadrant pain. Patient stated that he was evaluated at [facility] a week and a half ago. He has signs of cholelithiasis. He was scheduled for surgery early April. However he came to [facility] because he was about to have bariatric surgery with a bariatric surgeon here. Patient is complaining of worsening right upper quadrant pain. This is persistent in nature. Endorse some nausea and diarrhea with this. Denies any fever. History of spinal bifida surgeries in the past. No abdominal surgeries. Related Data Home Medications ?Medication ?Instructions ?Recorded ?Confirmed atorvastatin 20 mg tablet 20 mg PO DAILY 11/01/24 0703/15 levothyroxine 100 mcg tablet 100 mcg PO DAILY 11/01/24 12/27/24 (Levo-T) omeprazole 20 mg capsule,delayed 20 mg PO DAILY 12/27/24 release Previous Rx's ?Medication ?Instructions ?Recorded cholecalciferol (vitamin D3) 125 125 mcg PO DAILY #90 caps 11/29/24 mcg (5,000 unit) capsule mecobalamin (vitamin B12) 1,000 1,000 mcg sublingual D AILY #90 tabs 11/29/24 mcg disintegrating tablet,sublingual Allergies Allergy/AdvReac Type Severity Reaction Status Date / Time levetiracetam (From [facility]) Allergy Severe ANAPHYLAXIS Verified 04/04/25 13:01 Review of Systems Review of Systems Pertinent review of systems as mentioned in HPI. All other system otherwise negative. [facility] Past Medical History [facility] Narrative: Medical history as mentioned in HPI Medical History (Updated 04/04/25 @ 17:33 by Tamera Cardozo DO) ROCHELLE (obstructive sleep apnea) Hypothyroidism Hyperlipidemia GERD (gastroesophageal reflux disease) Morbid obesity Seizure Surgical History (Updated 12/27/24 @ 10:41 by Lynda Nowak RN) H/O endoscopy H/O colonoscopy History of brain shunt H/O Spinal surgery Family History Family History Father No problems noted. Mother No problems noted. Social History Social History Are you a primary personal care home administrator to a significant other at home: No Do you presently have visiting nurse or other home services: No Alcohol intake: never Patient Tobacco Use Status: Former Tobacco user Tobacco use type: Cigarette Years Smoked: 1 Advance Directives: No Advance Directives Information Provided: Yes Do you have a plan to hurt others: No Plan Current occupational status: employed Current occupation: [employer] Physical Exam ED Exam Exam: General: Pleasant, no distress, interacting appropriately Head: Normacephalic, atraumatic ENT: oral mucosa moist, neck supple, no tracheal deviation Cardiovascular: regular rate, regular rhythm, no murmurs, rubbing, gallops Respiratory: CTAB, no wheeze, rales, rhonchi Gastrointestinal: Soft, non distended right upper quadrant pain, positive Martel's sign on exam Neurological: Awake and alert, no facial droop noted Skin: Warm and dry Psychiatric: Appropriate mood and thoughts Vital Signs: Vital Signs - 24 hr 04/04/25 12:59 04/04/25 16:43 Temperature 97.5 F 97.7 F Pulse Rate 86 77 Respiratory Rate 18 20 Blood Pressure 126/87 113/63 Pulse Oximetry 98 98 Oxygen Delivery Method Room Air Room Air BMI result Body Mass Index 43.0 Course Course Course Narrative: This is a Rapid Medical Examination (RME) performed by Bill Zuluaga PA-C in triage. Full HPI, ROS, assessment and treatment plan per primary provider in the Main ED. Hx: 39 yo M hx gallstones here w/ N/V, RUQ abd pain and diarrhea. has appointment w/ general surgeon in [facility] for gallstones. Plan: labs, RUQ US Medical Decision Making Medical Decision Making MDM Narrative: 39-year-old male presented hospital today for evaluation of right upper quadrant pain in setting of recently diagnosed cholelithiasis. Ultrasound here did show cholecystitis. The patient does have positive Martel's sign. No leukocytosis no elevated bilirubin. Vital Signs Stable. Surgical team has been consulted and does recommend admission. Patient will be admitted to the hospital here. IV Zosyn started, IV fluid initiated for the patient as well. Differential Diagnosis Differential Diagnoses: The differential diagnosis associated with the presentation includes Cholecystitis, choledocholithiasis, pancreatitis, gastritis Consult Healthcare Provider Management of the patient was discussed with: Catheter Builder (Milly (Surgery) ) Lab Data MDM Lab Attestation statement: I reviewed the patient's lab results. 04/04/25 13:20 04/04/25 13:20 Labs: Lab Results 04/04/25 Range/Units 13:20 WBC 7.8 (4.8-10.8) X10*3/uL RBC 5.16 (4.60-5.80) X10*6/uL Hgb 15.0 (14.0-18.0) g/dl Hct 45.6 (42.0-52.0) % MCV 88.4 (80.0-98.0) fL MCH 29.1 (27.0-33.0) pg MCHC 32.9 (31.0-36.0) g/dl RDW 12.3 (11.0-16.0) % Plt Count 276 (160-400) X10*3/uL MPV 9.3 L (9.4-12.4) fL Immature Gran % (Auto) 0.1 (0.0-0.4) % Neut % (Auto) 60.6 (45-73) % Lymph % (Auto) 28.3 (20-40) % [place] % (Auto) 10.3 (2-11) % Eos % (Auto) 0.4 (0-4) % Baso % (Auto) 0.3 (0-2) % Lymph # (Auto) 2.2 (1.2-4.9) X10*3/uL [place] # (Auto) 0.8 (0.1-1.2) X10*3/uL Eos # (Auto) 0.0 (0.0-0.4) X10*3/uL Baso # (Auto) 0.0 (0.0-0.2) X10*3/uL Abs Immat Gran (auto) 0.01 (0.00-0.03) X10*3/uL Absolute Neuts (auto) 4.7 (2.0-8.3) x10*3/uL Absolute Nucleated RBC 0.000 (0.0-0.012) X10*3/uL Nucleated RBC % (auto) 0.0 (0.0-0.2) /100WBC Sodium 139 (135-145) mmol/L Potassium 4.7 (3.3-5.1) mmol/L Chloride 109 H (96-108) mmol/L Carbon Dioxide 23 (22-29) mmol/L Anion Gap 12 (12-20) BUN 11 (9-16) mg/dL Creatinine 0.86 (0.5-1.4) mg/dL Estim Creat Clear Calc 149.2 Estimated GFR > 60 Random Glucose 84 (60-115) mg/dL Calcium 9.4 (8.4-10.2) mg/dL Magnesium 2.0 (1.6-2.6) mg/dL Total Bilirubin 0.4 (0.0-1.0) mg/dL Direct Bilirubin 0.1 (0.0-0.5) mg/dL AST 35 (5-37) U/L ALT 38 (0-40) U/L Alkaline Phosphatase 70 (39-117) U/L Total Protein 7.8 (6.5-8.0) g/dL Albumin 4.6 (3.5-5.0) g/dL Lipase 46 (8-78) U/L Independent Interpretation I performed an independent interpretation of an: Ultrasound Radiology Impression Discussion of test interpretation with radiology: I have reviewed the radiologist's reading. Medications Administered Discontinued Medications Generic Name Dose Route Start Last Admin Trade Name Freq PRN Reason Stop Dose Admin Ibuprofen 800 mg 04/04/25 16:38 04/04/25 16:43 Ibuprofen 800 Mg Tablet PO 04/04/25 16:39 800 mg ONCE ONE Administration Critical Care Time Critical Care Time Critical Care Time: Yes Total Critical Care Time: 36 Attestation: Time is exclusive of separately billable procedures. Time includes: direct patient care, patient reassessment, coordination of patient care, interpretation of data (laboratory data, pulse oximetry, arterial blood gases and chest xrays), review of patient's medical records, medical consultation and documentation of patient care. Procedures excluded from critical care time: central intravenous line placement and electrocardiography. Discharge Plan Discharge Clinical Impression: Acute cholecystitis Patient Disposition: Admitted As Inpatient Print Language: Serbian
[2025-04-04 13:23] LABS: MANUAL DIFF FLAG NO
[2025-04-04 13:26] LABS: Hematocrit 45.6 % (42.0-52.0); Hemoglobin 15.0 g/dl (14.0-18.0); Imm Gran Abs Auto 0.01 X10*3/uL (0.00-0.03); Imm Gran Pct Auto 0.1 % (0.0-0.4); Lymphocytes Absolute Auto 2.2 X10*3/uL (1.2-4.9); Mean Corpuscular HGB Conc 32.9 g/dl (31.0-36.0); Mean Corpuscular Hemoglobin 29.1 pg (27.0-33.0); Mean Corpuscular Volume 88.4 fL (80.0-98.0); NRBC Abs Auto 0.000 X10*3/uL (0.0-0.012); NRBC Pct Auto 0.0 /100WBC (0.0-0.2); Platelet Count 276 X10*3/uL (160-400); Red Blood Count 5.16 X10*6/uL (4.60-5.80); White Blood Count 7.8 X10*3/uL (4.8-10.8)
[2025-04-04 13:52] LABS: Alanine Aminotransferase 38 U/L (0-40); Albumin Level 4.6 g/dL (3.5-5.0); Alkaline Phosphatase 70 U/L (39-117); Anion Gap 12 (12-20); Aspartate Amino Transferase 35 U/L (5-37); Blood Urea Nitrogen 11 mg/dL (9-16); Calcium 9.4 mg/dL (8.4-10.2); Carbon Dioxide 23 mmol/L (22-29); Chloride 109 mmol/L (96-108); Creatinine Clr Calc Pharmacy 149.2; Estimated Glomerular Filt Rate > 60; Lipase 46 U/L (8-78); Magnesium 2.0 mg/dL (1.6-2.6); Potassium 4.7 mmol/L (3.3-5.1); Sodium 139 mmol/L (135-145); Total Protein 7.8 g/dL (6.5-8.0)
[2025-04-04 16:43] VITALS: BP 113/63; PULSE 77; RESP 20; TEMP 36.5; O2SAT 98
[2025-04-04 17:52] VITALS: RESP 18
[2025-04-04 18:30] VITALS: BP 114/52; PULSE 62; RESP 14; TEMP 37; O2SAT 98
--- NOTE | 2025-04-04 18:45 | PM.HPGS ---
History of Present Illness History of Present Illness Date of Service: 04/04/25 Chief complaint: Acute Cholecystitis Narrative: Alfie Trujillo is a 39 year old male with PMH of morbid obesity, GERD, hypothyroidism, hyperlipidemia, hx of spina bifida and hydrocephalus with [employer] shunt, known gallstones who presented to the ED with complaints of RUQ abd pain. Patient has previously been seen at [facility] ED last week for RUQ pain where an US was performed which showed gallstones. The pain resolved and he was discharged to home and scheduled to follow up with general surgery in April. He however developed the RUQ pain this morning that was more severe in nature and constant. It was also associated with nausea and loose stools. He there presented to the our ED for evaluation as he has been undergoing work up for bariatric surgery here. Work up in the ED included CBC, BMP, LFTs which were unremarkable. ABD US showed numerous gallstones with wall thickening and positive ultrasonic martel sign. He reports continued RUQ pain but improved with analgesics. He reports prior similar episodes of post prandial RUQ pain however not to this degree. He has history of surgery for spina bifida and a [employer] shunt placement when he was 3 years old in [place]. The initial shunt malfunctioned and it was repositioned and he has not had difficulty since. He did have a history of seizures related to the hydrocephalus but he has not had one since he was younger. He follows with neurology at [facility]. He denies fevers, chills, change in skin color, sick contacts, headaches, blurred vision. Review of Systems Review of Systems: Yes all other systems are reviewed and are negative PMF Past Medical History Medical History (Updated 04/04/25 @ 17:33 by Tamera Cardozo DO) ROCHELLE (obstructive sleep apnea) Hypothyroidism Hyperlipidemia GERD (gastroesophageal reflux disease) Morbid obesity Seizure Family History Family History Father No problems noted. Mother No problems noted. Surgical History Surgical History (Updated 12/27/24 @ 10:41 by Lynda Nowak RN) H/O endoscopy H/O colonoscopy History of brain shunt H/O Spinal surgery Social History Social History Are you a primary healthcare or medical to a significant other at home: No Do you presently have visiting nurse or other home services: No Alcohol intake: never Patient Tobacco Use Status: Former Tobacco user Tobacco use type: Cigarette Years Smoked: 1 Smoked in Last 30 Days: No Use of substances other than those prescribed or required for medical reasons: No Advance Directives: No Advance Directives Information Provided: Yes Do you have a plan to hurt others: No Plan Current occupational status: employed Current occupation: [employer] Allergies Allergy/AdvReac Type Severity Reaction Status Date / Time levetiracetam (From [facility]) Allergy Severe ANAPHYLAXIS Verified 04/04/25 13:01 Active Medications: Current Medications Acetaminophen (Acetaminophen 325 Mg Tablet) 650 mg PO Q6H PRN PRN Reason: Pain, Mild 1-3,fever,headache Calcium Carbonate (Calcium Carbonate 750 Mg Tab.Chew) 750 mg PO Q4H PRN PRN Reason: Heartburn Hydromorphone HCl (Hydromorphone Hcl 1 Mg/Ml Syringe) 0.5 mg IVPUSH Q4H PRN; Protocol PRN Reason: Pain, Severe (Pain Scale 7-10) Lactated Ringer's (Lr) 1,000 mls @ 100 mls/hr IVCONT .Q10H [facility] Piperacillin Sod/Tazobactam (Sod 3.375 gm/ Sodium Chloride) 50 mls @ 100 mls/hr IV Q6H [facility] Magnesium Hydroxide (Milk Of Magnesia 30 Ml Oral.Susp) 30 ml PO DAILY PRN PRN Reason: Constipation Melatonin (Melatonin 3 Mg Tablet) 6 mg PO BEDTIME PRN PRN Reason: Insomnia Ondansetron HCl (Ondansetron Hcl 4 Mg/2 Ml Vial) 4 mg IVPUSH Q8H PRN PRN Reason: Nausea and Vomiting Oxycodone HCl (Oxycodone Hcl Immed Release 5 Mg Tablet) 5 mg PO Q6H PRN PRN Reason: Pain, Moderate(Pain Scale 4-6) Sodium Chloride (0.9 % Sodium Chloride Flush 3 Ml Syringe) 3 ml IVFLUSH QSHIFT [facility] Home Medications ?Medication ?Instructions ?Recorded ?Confirmed ?Last Taken ?Type atorvastatin 20 mg tablet 40 mg PO DAILY 11/01/24 04/04/25 04/03/25 History levothyroxine 100 mcg tablet 100 mcg PO DAILY@0600 05/04/04/25 04/03/25 History (Levo-T) omeprazole 20 mg capsule,delayed 20 mg PO DAILY@0630 11/01/24 04/04/25 12/27/24 History release Physical Exam Vital Signs: Vital Signs: Last Vital Signs Temp 98.6 F 04/04/25 18:30 Pulse 62 04/04/25 18:30 Resp 14 04/04/25 18:30 BP 114/52 L 04/04/25 18:30 Pulse Ox 98 04/04/25 18:30 O2 Del Method Room Air 04/04/25 18:30 BMI result Body Mass Index 43.0 Const: General: comfortable, no acute distress and alert Orientation/consciousness: patient oriented x3 Resp: Effort & Inspection: normal respiratory effort, able to speak in complete sentences and not tachypneic Cardio: Rate: regular rate GI: Other: corpulent abdomen small scar mid right abdomen Inspection: No distended Palpation (GI): Soft to palpation, Tenderness to palpation present (GI) in the RUQ and Martel's sign positive and no guarding Percussion: Yes normal to percussion Skin: General skin exam: no rashes or lesions noted and no jaundice Neuro: General: patient oriented x3 and moves all extremities Results Results Labs: Short CBC 04/04/25 Range/Units 13:20 WBC 7.8 (4.8-10.8) X10*3/uL Hgb 15.0 (14.0-18.0) g/dl Hct 45.6 (42.0-52.0) % Plt Count 276 (160-400) X10*3/uL BMP 04/04/25 13:20 Sodium 139 Potassium 4.7 Chloride 109 H Carbon Dioxide 23 BUN 11 Creatinine 0.86 Calcium 9.4 Liver Function 04/04/25 Range/Units 13:20 Total Bilirubin 0.4 (0.0-1.0) mg/dL Direct Bilirubin 0.1 (0.0-0.5) mg/dL AST 35 (5-37) U/L ALT 38 (0-40) U/L Alkaline Phosphatase 70 (39-117) U/L Albumin 4.6 (3.5-5.0) g/dL Abdominal ultrasound report/results: report reviewed and image reviewed Additional studies: labs reviewed Assessment and Plan (1) Acute cholecystitis: Status: Acute Plan 39 year old male with PMH of morbid obesity, GERD, hypothyroidism, hyperlipidemia, hx of spina bifida and hydrocephalus with [employer]IST shunt, known gallstones presenting with acute onset severe RUQ abd pain associated with nausea, diarrhea with positive martel sign and US demonstrating gallstones, gallbladder wall thickening consistent with acute cholecystitis. Treatment options were discussed. Risks, benefits, alternatives of laparoscopic possible open cholecystectomy were reviewed with the patient including but not limited to bleeding, infection, numbness, pain, poor healing, injury to the liver, bowel or bile ducts, leak, retained stones and the patient wishes to proceed.? Arrangements will be made for this for tomorrow.?All questions were answered. at bedside. Cont IVF, IV zosyn, PRN analgesics. CT scan abd pelvis was ordered for procedural planning in view of his [employer]IST shunt. Quality Stroke Does the patient have a stroke diagnosis?: No VTE Prior VTE?: No VTE Risk Level:: Surgical - moderate VTE Device Contraindication: N/A - Device Ordered VTE Drug Contraindication: Treatment Not Indicated Procedures Date of Service Date of Service: 04/04/25
--- NOTE | 2025-04-04 19:04 | PC.NURSE ---
Last food intake before noon today. Alert and oriented. Plan for surgery. Pt reports pain improved with meds
--- NOTE | 2025-04-04 19:21 | PHA.MEDREC ---
Pharmacy Consult ? Medication Reconciliation Pharmacy has completed the medication reconciliation. Spoke to patient to confirm medication list. Per patient, last dose was yesterday 04/03/25.
--- NOTE | 2025-04-04 21:34 | HO.NURTONUR ---
pt came to ER because he was about to have bariatric surgery with a bariatric surgeon here. Patient is complaining of worsening right upper quadrant pain with N/D. Here in ED ultrasound showed Concerning acute calculus cholecystitis. Pt seen GI who plans for laparoscopic possible open cholecystectomy and Arrangements will be made for this for tomorrow. pt A&Ox3, from home, NPO after midnight. 20G R AC with NS running. Pt keeps bending his arm and does not want a diffrent IV. Maintance fluids delayed due to this.
[2025-04-04 21:50] VITALS: BMI 44.3
[2025-04-04] MEDS: oxyCODONE HCl Immed Release 5 MG TABLET PO (22:10)
[2025-04-04 22:21] VITALS: BP 119/74; PULSE 60; RESP 20; TEMP 36.6; O2SAT 97
[2025-04-04] MEDS: Lactated Ringers 1,000 ML 100 ML IVCONT (23:00)
[2025-04-04] MEDS: 0.9 % Sodium Chloride Flush 3 ML SYRINGE IVFLUSH (23:01)
[2025-04-05] VITALS (13 sets, daily range): BP systolic 112–150; BP diastolic 61–91; PULSE 52–116; RESP 12–20; TEMP 36.2–37.1; O2SAT 91–99
--- NOTE | 2025-04-05 08:16 | HO.ANESPROP2 ---
[facility] Active Problems Active Problems: All Active Problems (Updated 04/04/25 @ 17:33 by Tamera Cardozo DO) Acute cholecystitis (Acute) Vitamin B12 deficiency (Acute) Vitamin D deficiency (Acute) Cervical radiculopathy (Acute) Carpal tunnel syndrome of right wrist (Acute) Hypothyroidism (Acute) Hyperlipidemia (Acute) GERD (gastroesophageal reflux disease) (Acute) Morbid obesity (Acute) Past Medical History Medical History (Updated 04/04/25 @ 17:33 by Tamera Cardozo DO) ROCHELLE (obstructive sleep apnea) Hypothyroidism Hyperlipidemia GERD (gastroesophageal reflux disease) Morbid obesity Seizure Family History Family History Father No problems noted. Mother No problems noted. Family history of problems with anesthesia: No Surgical History Surgical History (Updated 12/27/24 @ 10:41 by Lynda Nowak RN) H/O endoscopy H/O colonoscopy History of brain shunt H/O Spinal surgery History of Problems with Anesthesia: No Social History Social History Household Members: Spouse Housing: House Are you a primary tree care foreman to a significant other at home: No Do you presently have visiting nurse or other home services: No Alcohol intake: never Patient Tobacco Use Status: Former Tobacco user Tobacco use type: Cigarette Years Smoked: 1 Smoked in Last 30 Days: No Use of substances other than those prescribed or required for medical reasons: No Currently Displaying Signs/Symptoms of Drug Intoxication Withdrawal: No Have you been hit, kicked, punched, or otherwise hurt by someone within the past year? If so, by whom?: No Do you feel safe in your current relationship?: Yes Is there a partner from a previous relationship who is making you feel unsafe now?: No Are you made to feel afraid or neglected: No Advance Directives: No Advance Directives Information Provided: Yes Do you have a plan to hurt others: No Plan Recently lost weight without trying: No How much weight loss: Not applicable Eating poorly because of decreased appetite: No Nutrition screen score: 0 Nutrition Risks: No Nutritional Risk Poor oral hygiene: No Current occupational status: employed Current occupation: [employer] Allergies Allergy/AdvReac Type Severity Reaction Status Date / Time levetiracetam (From [facility]) Allergy Severe ANAPHYLAXIS Verified 10/15/25 13:01 Active Medications: Current Medications Acetaminophen (Acetaminophen 325 Mg Tablet) 650 mg PO Q6H PRN PRN Reason: Pain, Mild 1-3,fever,headache Last Admin: 04/04/25 22:12 Dose: 650 mg Calcium Carbonate (Calcium Carbonate 750 Mg Tab.Chew) 750 mg PO Q4H PRN PRN Reason: Heartburn Hydromorphone HCl (Hydromorphone Hcl 1 Mg/Ml Syringe) 0.5 mg IVPUSH Q4H PRN; Protocol PRN Reason: Pain, Severe (Pain Scale 7-10) Lactated Ringer's (Lr) 1,000 mls @ 100 mls/hr IVCONT .Q10H [facility] Last Infusion: 04/05/25 07:58 Dose: 0 mls/hr Piperacillin Sod/Tazobactam (Sod 3.375 gm/ Sodium Chloride) 50 mls @ 100 mls/hr IV Q6H [facility] Last Infusion: 04/05/25 06:05 Dose: Infused Levothyroxine Sodium (Levothyroxine Sodium 100 Mcg Tablet) 100 mcg PO DAILY@0600 [facility] Last Admin: 04/05/25 05:28 Dose: 100 mcg Magnesium Hydroxide (Milk Of Magnesia 30 Ml Oral.Susp) 30 ml PO DAILY PRN PRN Reason: Constipation Melatonin (Melatonin 3 Mg Tablet) 6 mg PO BEDTIME PRN PRN Reason: Insomnia Last Admin: 04/04/25 22:12 Dose: 6 mg Omeprazole (Omeprazole 20 Mg Capsule.Dr) 20 mg PO DAILY@0630 [facility] Last Admin: 04/05/25 05:28 Dose: 20 mg Ondansetron HCl (Ondansetron Hcl 4 Mg/2 Ml Vial) 4 mg IVPUSH Q8H PRN PRN Reason: Nausea and Vomiting Oxycodone HCl (Oxycodone Hcl Immed Release 5 Mg Tablet) 5 mg PO Q6H PRN PRN Reason: Pain, Moderate(Pain Scale 4-6) Last Admin: 04/04/25 22:10 Dose: 5 mg Sodium Chloride (0.9 % Sodium Chloride Flush 3 Ml Syringe) 3 ml IVFLUSH QSHIFT [facility] Last Admin: 04/05/25 07:16 Dose: Not Given Home Medications ?Medication ?Instructions ?Recorded ?Confirmed ?Last Taken ?Type atorvastatin 20 mg tablet 40 mg PO DAILY 11/01/24 04/04/25 04/03/25 History levothyroxine 100 mcg tablet 100 mcg PO DAILY@0600 11/01/24 04/04/25 04/03/25 History (Levo-T) omeprazole 20 mg capsule,delayed 20 mg PO DAILY@0630 11/01/24 04/04/25 12/27/24 History release Exam Height,Weight and Vital Signs: Height 5 ft 8 in Weight 132.2 kg Last Vital Signs Temp 97.8 F 04/05/25 06:49 Pulse 52 04/05/25 06:49 Resp 17 04/05/25 06:49 BP 130/69 04/05/25 06:49 Pulse Ox 97 04/05/25 06:49 O2 Del Method Room Air 04/05/25 06:49 Pertinent Lab Results Pertinent Lab Results: Laboratory Tests 04/04/25 04/04/25 13:20 17:41 WBC 7.8 RBC 5.16 Hgb 15.0 Hct 45.6 MCV 88.4 MCH 29.1 MCHC 32.9 RDW 12.3 Plt Count 276 MPV 9.3 L Immature Gran % (Auto) 0.1 Neut % (Auto) 60.6 Lymph % (Auto) 28.3 Storey % (Auto) 10.3 Eos % (Auto) 0.4 Baso % (Auto) 0.3 Lymph # (Auto) 2.2 Storey # (Auto) 0.8 Eos # (Auto) 0.0 Baso # (Auto) 0.0 Abs Immat Gran (auto) 0.01 Absolute Neuts (auto) 4.7 Absolute Nucleated RBC 0.000 Nucleated RBC % (auto) 0.0 Sodium 139 Potassium 4.7 Chloride 109 H Carbon Dioxide 23 Anion Gap 12 BUN 11 Creatinine 0.86 Estim Creat Clear Calc 149.2 Estimated GFR > 60 Random Glucose 84 Lactic Acid 1.0 Calcium 9.4 Magnesium 2.0 Total Bilirubin 0.4 Direct Bilirubin 0.1 AST 35 ALT 38 Alkaline Phosphatase 70 Total Protein 7.8 Albumin 4.6 Lipase 46 Airway Mallampati Class: III TM Dist: >3cm Neck ROM: Full Heart: rrr Lungs: cta Assessment and Plan Assessment Anesthesia Assessment: Anesthesia Plan Discussed, PAT Visit and Chart Reviewed Final Anesthetic Review Family History of Problems with Anesthesia: No History of Problems with Anesthesia: No NPO: Yes ASA Class: III Final Preanesthetic Review: No Changes in Pt Med Stat, Meds/Allgs Chart Reviewed, Consent Obtained/Reviewed and Anes Risks/Benef Reviewed Patient Risk: Intermediate Procedure Risk: Low Anesthetic Plan Anesthetic Plan: GA Disposition: Standard PACU
--- NOTE | 2025-04-05 08:20 | P.EN_ITS ---
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 Imaging studies suggestive of acute cholecystitis Abdomen is soft and benign Tender in the right upper quadrant, pain level 6/10 I reviewed with the technique of laparoscopic cholecystectomy and possible open cholecystectomy I explained the risks including but not limited to bleeding, infections, injury to other organs including bowel, liver and the bile duct, bile leak, retained stones, as well as the benefits and alternatives I explained to him what to expect postoperatively He has given consent I also discussed the above with his Sugey Time Spent With Patient Time: Total time managing care of this patient today ____ minutes.
--- NOTE | 2025-04-05 08:28 | PC.NURSE ---
Patient noted to have #20G IV to right AC. IV patent, flushes wihtout difficulty and has positive blood return. Dressing clean dry intact.
--- NOTE | 2025-04-05 11:18 | P.OP_ITS ---
Operative Note Operative Note Date of Service: 04/05/25 Narrative: Preop diagnosis : Acute calculous cholecystitis Postop diagnosis: Acute calculous cholecystitis, with extensive adhesions in the peritoneal cavity Procedure: Laparoscopic cholecystectomy - very difficult dissection in view of extensive adhesions throughout the peritoneal cavity, and significant induration adhesions surrounding the neck of the gallbladder Surgeon: Rodriguez Arciniega MD senior sales assistant: SANDHYA Mora The patient is a 39-year-old male, morbidly obese, we will a ORTHODONTIC TREATMENT COORDINATOR shunt in place, admitted because of the right upper quadrant pain with known gallstones. Imaging studies were suggestive of acute cholecystitis. He understood the technique of the planned procedure as well as the risks, benefits, and alternatives. He was brought to the operating room. He was placed supine under general anesthesia via endotracheal tube. The abdomen was prepped and draped in the usual sterile fashion. A surgical time-out was done. The patient was receiving scheduled IV antibiotics. I made a short supraumbilical incision with a blade 15. This was carried down through the full-thickness of the skin and subcutaneous fat down to the fascia. It was noted the patient is a thick subcutaneous fat in view of his morbid obesity. The fascia was incised. We thought that at some point we were inside the peritoneal cavity. However, when we inserted the Butler retractor and the laparoscope, we continued to hit the peritoneum. I to try to open up the peritoneum by exposing this and trying to identify other layers but each time we did this, it appeared that there were other layers deep to this. We were trying to expose the peritoneal cavity for a long period of time. I felt that we should try another area of the abdominal cavity in case there were adhesions to this area. I therefore made another short incision in the epigastric area below the xiphoid using the blade 15. I carried this incision down through the full-thickness of the skin and subcutaneous fat. I incised the anterior sheath. I did muscle- splitting and incised the posterior sheath. This time, we are able to enter the peritoneal cavity. I inserted a Butler port through this. We insufflated to a pressure of 15 mm Hg. The 10 mm angled laparoscope was used and we are able to see that there were actually a lot of adhesions in the area of the mid abdomen, a left lower quadrant, as well as the left side of the hemiabdomen. The incision that we had earlier done the supraumbilical area was still covered with peritoneum. By using the index finger and reaching through this peritoneal cavity, we are able to eventually break through the peritoneum away from the adherent small bowel loops. I was able to place a long Butler port this area into the peritoneal cavity. We removed the scope into the umbilical port. With laparoscopic visualization I was able to insert a 5 mm port in the subcostal margin at the mid clavicular line. We had to positioned the 2nd working port higher up in the right upper quadrant because of adherent bowel loops on the right abdomen. The patient is placed in a steep head up [id number] position. In view of persistence of bed obesity, we had difficulty getting a good angle of the subhepatic space. We are able to apply a grasper at the fundus to retract the gallbladder cephalad. I was able to apply another grasper more distal of the gallbladder to retract this laterally. There was note of some edema of the gallbladder wall. There was note of a lot of adhesions surrounding the gallbladder as well we had to carefully dissect bluntly with the Maryland dissector. There was note of a lot of adhesions in the neck of the gallbladder along with indurated fibrous and areolar tissue. We had to do a lot of careful dissection of the neck of the gallbladder with the Maryland dissector. This part of the procedure took an extended period of time because of the amount of adhesions in the area. Eventually was able to expose what appeared to be the thick duct. I was able to confirm its confluence with the neck of the gallbladder. I was able to achieve a critical view of the hepatocystic triangle. There did not appear to be any other ductal structures in this area. The cystic artery appeared to be very adherent to parts of the hilum with surrounding indurated he had in his fat I proceeded to apply clips on the cystic duct with 2 clips being applied distally. The cystic duct was transected between clips with the endo-scissors. With traction of the gallbladder wall away from the liver bed, I proceeded to gently dissect along the hilum with the Maryland dissector. I was able to see the cystic duct which appeared to be very indurated as well and adherent to the rest of the fiber areolar tissue. I had to do careful dissection with the Sarah hand dissector and this again took an extended period of time. Eventually was able to apply multiple clips in the presence of continues oozing from the area. The cystic artery was transected between clips with endo scissors We continued to dissect the gallbladder away from the liver bed. I used the hook electrocautery to carefully and slowly open up the peritoneum of the gallbladder. I carefully created the gallbladder from the liver bed along this plane of dissection using combination of the tip of the hook as well as electrocautery itself. We had difficulty with exposure and dissection in view of the angle of the laparoscope and the instruments in view of his morbid obesity We continued with gentle and slow dissection all the way to the fundus anterior the entire gallbladder was completely from the liver bed. Gallbladder was retrieved through an endobag through the epigastric port I reinsufflated and reinserted all ports We examined the area of dissection in the subhepatic space. There was some oozing on the liver bed so I applied Surgicel on this I copiously irrigated. I suctioned the irrigant fluid. Further examination and observation showed that there was good hemostasis I observed the other visible areas of the abdominal cavity. Again, there was note of significant adhesions in the area of the umbilicus, the right side as well as the left side of the abdominal cavity so we really could not visualize all 4 quadrants. However, there was no evidence of any bowel injury with the utilize bowel loops There was no evidence of any bleeding Once hemostasis was confirmed, I proceeded to then desufflated the port sites. The fascia of both the umbilical incision as well as the epigastric incision was closed with a [id number] Polysorb 0 sutures Skin closure was achieved on all incisions using Polysorb 4-0 subcuticular running sutures. All incisions were infiltrated with Marcaine 0.5% for postop analgesia Dressings were applied and the procedure was completed The patient tolerated the procedure well. There were no immediate complications. Initial and final counts of sponges and instruments were correct. Estimated blood loss was about 75 cc The patient was extubated without difficulty and transferred to the recovery room with stable vital signs.
[2025-04-05] MEDS: Lactated Ringers 1,000 ML 50 ML IVCONT (12:24)
[2025-04-05] MEDS: oxyCODONE HCl Immed Release 5 MG TABLET PO ×2 (15:47→21:57)
--- NOTE | 2025-04-05 16:01 | PM.EVENT ---
Event Note Date of Service: 04/05/25 Event Note: Seen earlier postop Underwent laparoscopic cholecystectomy Difficult dissection in view of adhesions, morbid obesity He appears to have good pain control postop Abdomen is soft and benign Stable vital signs Diet as tolerated Pain management Possible DC home tomorrow Family at bedside also updated Time Spent With Patient Time: Total time managing care of this patient today ____ minutes.
--- NOTE | 2025-04-05 16:18 | MHC.CM.PN ---
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
[2025-04-05] MEDS: 0.9 % Sodium Chloride Flush 3 ML SYRINGE IVFLUSH (21:59)
[2025-04-06 03:21] VITALS: BP 119/71; PULSE 68; RESP 18; TEMP 36.4; O2SAT 96
[2025-04-06 06:53] VITALS: BP 114/78; PULSE 82; RESP 17; TEMP 36.6; O2SAT 96
--- NOTE | 2025-04-06 07:24 | PM.PNGS ---
Subjective Subjective Date of Service: 04/06/25 <Milly Mora PA-C - Last Filed: 04/06/25 07:26> 04/06/25 <Rodriguez Arciniega MD - Last Filed: 04/06/25 08:39> Interval history: Having some gas and incisional pains but overall feeling well. Tolerating solid diet without nausea or vomiting. OOB and ambulating without difficulty. Wants to go home. <Milly Mora PA-C - Last Filed: 04/06/25 07:26> Physical Exam Vital Signs: Vital Signs: Last Vital Signs Temp 98 F 04/06/25 06:53 Pulse 82 04/06/25 06:53 Resp 17 04/06/25 06:53 BP 114/78 04/06/25 06:53 Pulse Ox 96 04/06/25 06:53 O2 Del Method Room Air 04/06/25 06:53 O2 Flow Rate 2 04/05/25 11:50 BMI result Body Mass Index 44.3 <Milly Mora PA-C - Last Filed: 04/06/25 07:26> Const: General: comfortable, no acute distress and alert <Milly Mora PA-C - Last Filed: 04/06/25 07:26> Orientation/consciousness: patient oriented x3 <MALIK Benoit Last Filed: 04/06/25 07:26> Resp: Effort & Inspection: normal respiratory effort <Milly Mora PA-C - Last Filed: 04/06/25 07:26> GI: Other: soft, dressings intact mild incisional tenderness <MALIK Benoit Last Filed: 04/06/25 07:26> Palpation (GI): no guarding <MALIK Benoit Last Filed: 04/06/25 07:26> Skin: General skin exam: no rashes or lesions noted and no jaundice <MALIK Benoit Last Filed: 04/06/25 07:26> Neuro: General: patient oriented x3 and moves all extremities <MALIK Benoit Last Filed: 04/06/25 07:26> Objective Data Active Medications Acetaminophen (Acetaminophen 325 Mg Tablet) 650 mg PO Q6H PRN PRN Reason: Pain, Mild 1-3,fever,headache Last Admin: 04/05/25 21:58 Dose: 650 mg Documented By: HARRY Calcium Carbonate (Calcium Carbonate 750 Mg Tab.Chew) 750 mg PO Q4H PRN PRN Reason: Heartburn Last Admin: 04/06/25 03:29 Dose: 750 mg Documented By: HARRY Hydromorphone HCl (Hydromorphone Hcl 1 Mg/Ml Syringe) 0.5 mg IVPUSH Q4H PRN; Protocol PRN Reason: Pain, Severe (Pain Scale 7-10) Last Admin: 04/06/25 03:43 Dose: 0.5 mg Documented By: HARRY Levothyroxine Sodium (Levothyroxine Sodium 100 Mcg Tablet) 100 mcg PO DAILY@0600 [facility] Last Admin: 04/06/25 05:24 Dose: 100 mcg Documented By: HARRY Magnesium Hydroxide (Milk Of Magnesia 30 Ml Oral.Susp) 30 ml PO DAILY PRN PRN Reason: Constipation Melatonin (Melatonin 3 Mg Tablet) 6 mg PO BEDTIME PRN PRN Reason: Insomnia Last Admin: 04/05/25 21:58 Dose: 6 mg Documented By: HARRY Omeprazole (Omeprazole 20 Mg Capsule.Dr) 20 mg PO DAILY@0630 [facility] Last Admin: 04/06/25 05:24 Dose: 20 mg Documented By: HARRY Ondansetron HCl (Ondansetron Hcl 4 Mg/2 Ml Vial) 4 mg IVPUSH Q8H PRN PRN Reason: Nausea and Vomiting Oxycodone HCl (Oxycodone Hcl Immed Release 5 Mg Tablet) 5 mg PO Q6H PRN PRN Reason: Pain, Moderate(Pain Scale 4-6) Last Admin: 04/05/25 21:57 Dose: 5 mg Documented By: HARRY Sodium Chloride (0.9 % Sodium Chloride Flush 3 Ml Syringe) 3 ml IVFSH [facility] Last Admin: 04/05/25 21:59 Dose: 3 ml Documented By: HARRY <Milly Mora PA-C - Last Filed: 04/06/25 07:26> Labs CBC & Chem 7: 04/04/25 13:20 04/04/25 13:20 <Milly Mora PA-C - Last Filed: 04/06/25 07:26> Microbiology Microbiology Results: Microbiology 04/04/25 17:41 Blood Culture - Preliminary Blood - Venous No growth after 24 hours. 04/04/25 17:41 Blood Culture - Preliminary Blood - Venous No growth after 24 hours. <Milly Mora PA-C - Last Filed: 04/06/25 07:26> Procedures Date of Service Date of Service: 04/06/25 <Milly Mora PA-C - Last Filed: 04/06/25 07:26> 04/06/25 <Rodriguez Arciniega MD - Last Filed: 04/06/25 08:39> Progress Note: A&P Assessment and plan (1) S/P laparoscopic cholecystectomy: Status: Acute <Milly Mora PA-C - Last Filed: 04/06/25 07:26> Assessment and Plan: Looks well Good pain control Tolerating diet Passing flatus Ambulating well He says he is ready to be discharged Discharge instructions reinforced with the patient Seen and examined independently <Rodriguez Arciniega MD - Last Filed: 04/06/25 08:39> Assessment and Plan: POD #1 s/p lap elke. Doing well post op, comfortable tolerating solid diet. Abd benign with appropriate post op tenderness, dressings clean and intact. Stable for dc to home today with f/u in office in 2 weeks. patient comfortable with plan. <Milly Mora PA-C - Last Filed: 04/06/25 07:26> Time Spent With Patient Time: Total time managing care of this patient today ____ minutes. <Milly Mora PA-C - Last Filed: 04/06/25 07:26> Quality Stroke Does the patient have a stroke diagnosis?: No <Milly Mora PA-C - Last Filed: 04/06/25 07:26> VTE Prior VTE?: No <Milly Mora PA-C - Last Filed: 04/06/25 07:26> VTE Risk Level:: Surgical - moderate <Milly Mora PA-C - Last Filed: 04/06/25 07:26> VTE Device Contraindication: N/A - Device Ordered <Milly Mora PA-C - Last Filed: 04/06/25 07:26> VTE Drug Contraindication: Treatment Not Indicated <Milly Mora PA-C - Last Filed: 04/06/25 07:26>
--- NOTE | 2025-04-06 09:18 | MHC.CM.PN ---
PT CLEARED TO DC TODAY HE DID COMPLETE A HCP BEFORE LEAVING NAMING HIS , LUIS CARLOS, HIS ONLY AGENT PT WILL ARRANGE TRANSPORT HOME
--- NOTE | 2025-04-06 09:38 | HO.POSTANES ---
Post Anesthesia Evaluation Post Anesthesia Evaluation Date of Service: 04/06/25 Vital Signs: Vital Signs Temp Pulse Resp BP Pulse Ox O2 Del Method 04/06/25 06:53 98 F 82 17 114/78 96 Room Air 04/06/25 03:21 97.6 F 68 18 119/71 96 Room Air 04/05/25 23:19 97.8 F 78 18 130/71 93 Room Air Anesthesia: General Mental Status: Awake Pain Control: Satisfactory Nausea/Vomiting: None Hydration: Adequate Anesthesia-Related Issues: No Anes. Related Issues
--- NOTE | 2025-04-06 10:37 | P.DS_ITS ---
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 Patient has previously been seen at [facility] ED last week for RUQ pain where an US was performed which showed gallstones. The pain resolved and he was discharged to home and scheduled to follow up with general surgery in April. He however developed the RUQ pain this morning that was more severe in nature and constant. It was also associated with nausea and loose stools. He there presented to the our ED for evaluation as he has been undergoing work up for bariatric surgery here. Work up in the ED included CBC, BMP, LFTs which were unremarkable. ABD US showed numerous gallstones with wall thickening and positive ultrasonic malik sign. He reports continued RUQ pain but improved with analgesics. He reports prior similar episodes of post prandial RUQ pain however not to this degree. He has history of surgery for spina bifida and a AIRCRAFT LAUNCH AND RECOVERY TECHNICIAN shunt placement when he was 3 years old in [place]. The initial shunt malfunctioned and it was repositioned and he has not had difficulty since. He did have a history of seizures related to the hydrocephalus but he has not had one since he was younger. He follows with neurology at [facility]. He denies fevers, chills, change in skin color, sick contacts, headaches, blurred vision. HOSPITAL COURSE: The patient was admitted to the surgical service for further treatment of the acute cholecystitis. He elected to proceed with laparoscopic cholecystectomy, possible open. He was added onto the OR schedule for that day. On 04/05/25, a laparoscopic cholecystectomy was performed by Dr. Arciniega withou t complication. The patient tolerated the procedure well. He had an uncomplicated recovery course. On POD #1, he felt well and was tolerating a solid diet without nausea or vomiting, had good pain control and was ambulating without difficulty. He was hemodynamically stable. His abdomen was benign with appropriate post op tenderness and clean and intact dressings. He felt ready for discharge. He was discharged to home on 04/06/25 in stable condition. He is to follow up in the office in 2 weeks. Status at Discharge Functional status at discharge: independent ambulation Overall status at discharge: patient is progressing back to baseline Time Attestation Discharge Coordination Time (in mins): 25 Quality: Safe Use of Opioids Does Pt have an Active Cancer Diagnosis on the Problem List?: No Quality: Stroke Does the patient have a stroke diagnosis?: No Physical Exam Vital Signs: Vital Signs: Last Vital Signs Temp 98 F 04/06/25 06:53 Pulse 82 04/06/25 06:53 Resp 17 04/06/25 06:53 BP 114/78 04/06/25 06:53 Pulse Ox 96 04/06/25 06:53 O2 Del Method Room Air 04/06/25 06:53 O2 Flow Rate 2 04/05/25 11:50 BMI result Body Mass Index 44.3 Const: General: comfortable, no acute distress and alert Orientation/consciousness: patient oriented x3 Resp: Effort & Inspection: normal respiratory effort GI: Other: abd soft, mild incisional tenderness dressings clean and intact Inspection: No distended Skin: General skin exam: no rashes or lesions noted and no jaundice Neuro: General: patient oriented x3 and moves all extremities DS: Data Data Completed and Pending Completed studies during hospitalization [Text1]: 04/05/25 10:49 Surgical [PTH] Routine Gallbladder, cholecystectomy: Chronic cholecystitis with diffuse adenomyomatous hyperplasia, focal intestinal metaplasia, focal cholesterolosis, and cholelithiasis Discharge Plan Discharge Anticipated Discharge Date/Time: 04/06/25 07:23 Patient Disposition: Home, Self-Care Discharge Diagnosis: acute cholecystitis, s/p laparoscopic cholecystectomy Referrals: Sarah Dang MD [Primary Care Provider, Internal Medicine] - 1 Week Rodriguez Arciniega MD [Physician, General Surgery] - 2 Weeks Discharge Medications: New docusate sodium [Colace] 100 mg capsule 100 mg PO BID PRN (Reason: constipation) Qty: 30 0RF oxycodone 5 mg tablet 5 mg PO Q4H PRN (Reason: pain (scale score 7-10)) Qty: 24 0RF Rx Instructions: Partial Fill upon patient request. ibuprofen 600 mg tablet 600 mg PO Q6H PRN (Reason: pain) Qty: 30 0RF Continued cholecalciferol (vitamin D3) 125 mcg (5,000 unit) capsule 125 mcg PO DAILY Qty: 90 0RF mecobalamin (vitamin B12) 1,000 mcg tablet,disintegrating 1,000 mcg sublingual DAILY Qty: 90 0RF Rx Instructions: place tablet under tongue and allow to dissolve for at least30 secs before swallowing levothyroxine [Levo-T] 100 mcg tablet 100 mcg PO DAILY@0600 omeprazole 20 mg capsule,delayed release(DR/EC) 20 mg PO DAILY@0630 atorvastatin 20 mg tablet 40 mg PO DAILY Discharge Orders: Discharge Order (Routine); Ordered 04/06/25 Ordered By: Milly Mora Diet: Low fat, low cholesterol Activity on Discharge: No heavy lifting Stand Alone Forms: Patient Portal Discharge page Print Language: Colombian Activity Restrictions/Additional Instructions: If the incision area is tender, you may apply an ice pack for short intervals ( No more than 20 minutes on, followed by at least 20 minutes off). Do not apply heat. Do not use creams, lotions, or topical antibiotics. These can cause infection or allergic reaction. Ok to shower 24 hours after your surgery. Remove bandaids in 2 days. You have steri strips (small white strips) covering your incision- these will fall off ~1 week. Follow up in office with Dr. Arciniega in 2 weeks. ([phone]) No heavy lifting (>10-20lbs) or strenuous activity! Call Your Doctor If: -Your temperature exceeds 101.5? F -You experience excessive pain or swelling -You have an unexpected reaction to medication -You have excessive bleeding -You experience continued vomiting/nausea -Your incision begins to separate -Your incision shows signs of infection such as increased redness, swelling, excessive pain, drainage (light blood or clear fluid is normal) or heat Care Plan Goals: Return to baseline health and resume normal activities following recovery period. Health Concerns: acute cholecystitis Plan of Treatment: s/p laparoscopic cholecystectomy follow up in the office in 2 weeks pain control Assessment: Doing well post op. Discharge Date/Time: 04/06/25 09:41
== END 2025-04-06 09:41 | disposition home or self-care (01) | DRG 263 ==
LOC: HO.ED 17:33 → HO.EDOVER 18:03 → HO.S3 21:20
PROVIDERS: Physician Assistant Medical; Surgery; Admitting Provider Physician Assistant Surgical; Emergency Provider Student in an Organized Health Care Education/Training Program; PCP Internal Medicine; Visit Provider Physician Assistant Surgical
PROC: 0FT44ZZ Resection of Gallbladder, Percutaneous Endoscopic Approach (ICD-10-PCS; CPT 47562; principal; 2025-04-05 09:00)
DX: K80.00 Calculus of gallbladder with acute cholecystitis without obstruction (principal); Q05.4 Unspecified spina bifida with hydrocephalus; E03.9 Hypothyroidism, unspecified; Z98.2 Presence of cerebrospinal fluid drainage device; E66.01 Morbid (severe) obesity due to excess calories; Z68.41 Body mass index [BMI] 40.0-44.9, adult; Z71.3 Dietary counseling and surveillance; K82.8 Other specified diseases of gallbladder; Z79.890 Hormone replacement therapy; Z87.891 Personal history of nicotine dependence; Z79.899 Other long term (current) drug therapy
CPT/HCPCS: 47562; 36415; 74176; 76705; 80048; 80076; 83605; 83690; 83735; 85025; 87040; 88304; 99221; 99285; J0330; J1100; J1171; J2003; J2250; J2270; J2405; J2543; J2704; J2795; J3010; J7120

== ENCOUNTER → 2025-04-04 13:02 | Outpatient (BNV) | payer OTHER, SELFPAY | PROVIDERS: PCP Internal Medicine; Visit Provider Radiology Diagnostic Radiology | DX: K80.00 Calculus of gallbladder with acute cholecystitis without obstruction (principal); K76.89 Other specified diseases of liver | CPT/HCPCS: 74176; 76705 ==

== ENCOUNTER → 2025-04-04 17:53 | Outpatient (BNV) | payer OTHER, SELFPAY | PROVIDERS: Admitting Provider Physician Assistant Surgical; Emergency Provider Student in an Organized Health Care Education/Training Program; PCP Internal Medicine; Visit Provider Physician Assistant Surgical | DX: Z90.49 Acquired absence of other specified parts of digestive tract (principal) | CPT/HCPCS: 99222; 99499 ==

== ENCOUNTER 2025-04-11 14:42 | Outpatient (AMB) | payer OTHER, SELFPAY ==
--- NOTE | 2025-04-11 14:15 | MHC.WMTHER ---
Intake Intake Visit Reasons: VIDEO BH F/U Allergies levetiracetam (From [facility]) Allergy (Severe, Verified 05/03/25 11:48) ANAPHYLAXIS [facility] Medical History (Updated 04/19/25 @ 00:02 by Background Daemon) Lower abdominal pain ROCHELLE (obstructive sleep apnea) Hypothyroidism Hyperlipidemia GERD (gastroesophageal reflux disease) Morbid obesity Seizure Surgical History (Updated 04/14/25 @ 00:01 by Background Daemon) H/O endoscopy H/O colonoscopy History of brain shunt H/O Spinal surgery Family History Father No problems noted. Mother No problems noted. Social History Household Members: Spouse and Children Housing: House Are you a primary childcare center director to a significant other at home: No Do you presently have visiting nurse or other home services: No Alcohol intake: former Patient Tobacco Use Status: Former Tobacco user Tobacco use type: Cigarette Years Smoked: 1 service: No Current occupational status: employed Current occupation: [employer] [facility] Assessment Weight Management Therapy Therapy Notes Details Subjective: The patient underwent cholecystectomy last week and reports that since Wednesday he has experienced abdominal pain and a sensation of abdominal hardness. He describes his recovery as difficult and has decided to pause participation in the program until cleared by his surgeon. The patient notes that things at home have improved, his anxiety is controlled, and his mood remains stable. Objective: The patient presented for a behavioral health follow-up visit. Current physical symptoms and post-surgical recovery were reviewed. Psychoeducation was provided regarding the potential impact of medical recovery on emotional well-being and the importance of monitoring for post-operative complications. CBT-based interventions were used to support symptom management, including relaxation techniques for anxiety and strategies to maintain emotional stability during recovery. The patient was encouraged to use coping skills previously learned and to maintain communication with his support system during this period. Assessment/Response: Mental status: Alert and oriented ?4. Appearance appropriate. Mood stable, affect congruent. Thought process logical and coherent. No evidence of psychosis. Insight and judgment intact. Risk reported/identified: No suicidal or homicidal ideation, self-harm, or other safety concerns identified. Assessment & Plan Assessment & Plan (1) Adjustment disorder: Code(s): F43.20 - Adjustment disorder, unspecified (2) Inappropriate diet or eating habits: Code(s): Z72.4 - Inappropriate diet and eating habits Plan Advised the patient to contact his surgeon?s office for further guidance or to go to the ER if symptoms persist or worsen. Will follow up for continued behavioral health support prior to weight loss surgery. Next appointment scheduled for 04/25/2025. Telehealth Telehealth [facility]health [facility] Location of provider rendering services: practice address Location of patient: address on file Patient Identification confirmed using: Name, : Yes Telehealth method: voice only Patient verbally consented to treatment: Yes Patient verbally consented to billing insurance company: Yes Patient informed of any privacy concerns related to visit: Yes Minutes spent on Phone/Video with Pt.: 45 Coding [place] [address] Tele Psytx 45 mins Patient Type Established Diagnoses Adjustment disorder F43.20 Inappropriate diet or eating habits Z72.4 Time Spent (min) 45
--- OUTSIDE RECORDS SUMMARY | 2025-04-11 20:51 | XMS_ITS | Clinical Summary ---
Author Organization [facility] Address [address] [place] [address] Phone Care Team Providers Care Tube Machine Operator Helper Name Role Phone Sarah Dang MD Primary Care Provider [phone] Allergies Active Allergy Reactions Criticality Noted Date Comments Levetiracetam 12/05/2024 Medications ibuprofen (ADVIL,MOTRIN) 400 mg tablet Take 1 tablet (400 mg total) by mouth every 6 (six) hours if needed for mild pain for up to 10 days. 30 tablet 03/24/2025 Active Problems No known active problems Encounters Date Type Department Care Team Description 03/24/2025 5:19 AM EDT - 03/24/2025 10:[address] [facility] [address] [place] [address] Eleazar Lam MD [place], Ashley, [...] K/mcL LAB HEMETOLOGY METHOD 03/24/2025 6:07 AM [facility] RBC 4.90 4.50 - 5.50 M/mcL LAB HEMETOLOGY METHOD 03/24/2025 6:07 AM [facility] Hemoglobin 14.4 13.5 - 17.5 g/dL LAB HEMETOLOGY METHOD 03/24/2025 6:07 AM [facility] Hematocrit 43.4 42.0 - 54.0 % LAB HEMETOLOGY METHOD 03/24/2025 6:07 AM [facility] MCV 88.8 79.0 - 98.0 FL LAB HEMETOLOGY METHOD 03/24/2025 6:07 AM [facility] MCH 29.4 27.0 - 32.0 pcg LAB HEMETOLOGY METHOD 03/24/2025 6:07 AM [facility] MCHC 33.2 32.0 - 37.0 g/dL LAB HEMETOLOGY METHOD 03/24/2025 6:07 AM [facility] RDW 12.4 11.0 - 15.0 % LAB HEMETOLOGY METHOD 03/24/2025 6:07 AM [facility] Platelets 270 130 - 400 K/mcL LAB HEMETOLOGY METHOD 03/24/2025 6:07 AM [facility] MPV 9.2 7.0 - 11.0 FL LAB HEMETOLOGY METHOD 03/24/2025 6:07 AM [facility] NRBC 0.0 <1.0 % LAB HEMETOLOGY METHOD 03/24/2025 6:07 AM [facility] NRBC Absolute 0.00 <0.10 K/mcL LAB HEMETOLOGY METHOD 03/24/2025 6:07 AM [facility] Neutrophils Relative 64.8 % LAB HEMETOLOGY METHOD 03/24/2025 6:07 AM [facility] Lymphocytes Relative 24.3 % LAB HEMETOLOGY METHOD 03/24/2025 6:07 AM [facility] Monocytes Relative 9.9 % LAB HEMETOLOGY METHOD 03/24/2025 6:07 AM [facility] Eosinophils Relative 0.6 % LAB HEMETOLOGY METHOD 03/24/2025 6:07 AM [facility] Basophils Relative 0.2 % LAB HEMETOLOGY METHOD 03/24/2025 6:07 AM [facility] Immature Granulocytes Relative 0.2 % LAB HEMETOLOGY METHOD 03/24/2025 6:07 AM [facility] Neutrophils Absolute 5.21 1.50 - 7.00 K/mcL LAB HEMETOLOGY METHOD 03/24/2025 6:07 AM [facility] Lymphocytes Absolute 1.96 1.00 - 5.00 K/mcL LAB HEMETOLOGY METHOD 03/24/2025 6:07 AM [facility] Monocytes Absolute 0.80 0.20 - 1.00 K/mcL LAB HEMETOLOGY METHOD 03/24/2025 6:07 AM EDT [facility] Eosinophils Absolute 0.05 0.00 - 0.50 K/[facility] LAB HEMETOLOGY METHOD 03/24/2025 6:07 AM EDT [facility] Basophils Absolute 0.02 0.00 - 0.20 K/[facility] LAB HEMETOLOGY METHOD 03/24/2025 6:07 AM EDT [facility] Immature Granulocytes Absolute 0.02 0.00 - 0.03 K/[facility] LAB HEMETOLOGY METHOD 03/24/2025 6:07 AM EDT [facility] Blood Venous blood specimen / Unknown Venipuncture / Unknown 03/24/2025 5:46 AM EDT 03/24/2025 5:54 AM EDT Eleazar Lam MD LAB BLOOD ORDERABLES Final R esult Performing Organization Address City/[facility]/ZIP Co de Phone Number [facility] [address] [place] [address], [place] [phone] * Lipase (03/24/2025 5:46 AM EDT) Pathologist [facility] Lipase 49 13 - 75 unit/L LAB CHEMISTRY METHOD 03/24/2025 6:21 AM EDT [facility] Blood Venous blood specimen / Unknown Venipuncture / Unknown 03/24/2025 5:46 AM EDT 03/24/2025 5:54 AM EDT us Eleazar Lam MD LAB BLOOD ORDERABLES Final R esult [facility] [address] [place] [address], [place] [phone] * Comprehensive metabolic panel (03/24/2025 5:46 AM EDT) Sodium 135 133 - 145 mmol/L LAB CHEMISTRY METHOD 03/24/2025 6:21 AM [facility] Potassium 4.1 3.5 - 5.5 mmol/L LAB CHEMISTRY METHOD 03/24/2025 6:21 AM [facility] Chloride 105 96 - 110 mmol/L LAB CHEMISTRY METHOD 03/24/2025 6:21 AM [facility] CO2 27 21 - 32 mmol/L LAB CHEMISTRY METHOD 03/24/2025 6:21 AM [facility] Anion Gap 3 3 - 11 LAB CHEMISTRY METHOD 03/24/2025 6:21 AM [facility] Glucose 98 70 - 100 mg/dL LAB CHEMISTRY METHOD 03/24/2025 6:21 AM [facility] BUN 18 5 - 25 mg/dL LAB CHEMISTRY METHOD 03/24/2025 6:21 AM [facility] Creatinine 0.89 0.70 - 1.30 mg/dL LAB CHEMISTRY METHOD 03/24/2025 6:21 AM [facility] eGFR 111 >=60 mL/min/1. 73m2 LAB CHEMISTRY METHOD 03/24/2025 6:21 AM [facility] Comment:Calculation based on the Chronic Kidney Disease Epidemiology Collaboration (CKD-EPI) equation refit without adjustment for race. BUN/Creatinine Ratio 20.2 LAB CHEMISTRY METHOD 03/24/2025 6:21 AM [facility] Calcium 9.0 8.5 - 10.5 mg/dL LAB CHEMISTRY METHOD 03/24/2025 6:21 AM [facility] AST (SGOT) 22 10 - 42 unit/L LAB CHEMISTRY METHOD 03/24/2025 6:21 AM [facility] ALT (SGPT) 36 10 - 60 unit/L LAB CHEMISTRY METHOD 03/24/2025 6:21 AM [facility] Alkaline Phosphatase 70 42 - 121 unit/L LAB CHEMISTRY METHOD 03/24/2025 6:21 AM EDT [facility] Total Protein 7.4 6.0 - 8.0 g/dL LAB CHEMISTRY METHOD 03/24/2025 6:21 AM EDT [facility] Albumin 3.8 3.2 - 5.0 g/dL LAB CHEMISTRY METHOD 03/24/2025 6:21 AM EDT [facility] Total Bilirubin 0.3 0.0 - 1.4 mg/dL LAB CHEMISTRY METHOD 03/24/2025 6:21 AM EDT [facility] Blood Venous blood specimen / Unknown Venipuncture / Unknown 03/24/2025 5:46 AM EDT 03/24/2025 5:54 AM EDT us Eleazar Lam MD LAB BLOOD ORDERABLES Final R esult [facility] [address] [place] [address], [place] [phone] from Last 3 Months Insurance MEDICAID - [place] Care Teams Tube Machine Operator Helper Relationship Specialty Start Date End Date Sarah Dang MD [address] [place] [address] [place] [address] PCP - General Internal Medicine 03/24/25
== END 2025-04-11 15:13 | disposition home or self-care (01) ==
LOC: HO.HBST 14:42
PROVIDERS: PCP Internal Medicine; Visit Provider Counselor Mental Health
DX: F43.20 Adjustment disorder, unspecified (principal); Z72.4 Inappropriate diet and eating habits
CPT/HCPCS: 90834

== ENCOUNTER 2025-04-11 16:41 | Inpatient (IN) | payer OTHER, SELFPAY ==
[2025-04-11] VITALS (8 sets, daily range): BP systolic 109–128; BP diastolic 59–83; PULSE 85–108; RESP 15–18; TEMP 36.8–38.6; O2SAT 97–99; BMI 43.6
--- NOTE | ~2025-04-11 | CT_ITS ---
CLINICAL HISTORY: ABDOMINAL PAIN CT of the abdomen and pelvis utilizing intravenous contrast. Comparison 04/04/2025. Findings: There has been a cholecystectomy. In the gallbladder fossa there is a 3.6 x 5.8 cm fluid collection containing a small collection of gas. This is indeterminate. No hydronephrosis. Mild splenomegaly. No peripancreatic inflammatory changes. No abdominal aortic aneurysm. No diverticulitis. Normal appendix. Moderate stool in the colon. Probable IT NETWORK ARCHITECT shunt catheter identified on the left. No bowel obstruction. Small umbilical hernia. There is a small amount of pneumoperitoneum likely related to recent surgery. There also areas of edema and ill-defined fluid along the anterior abdominal wall presumably postoperative. The bladder is nondilated. Impression: Small amount of pneumoperitoneum likely related to recent surgery. Gas containing fluid collection in the gallbladder fossa is indeterminate. A biloma, abscess and postoperative seroma are possibilities correlate clinically and consider follow-up. Other findings as above. This document has been electronically signed by: Gunner Zavala MD on 04/11/2025 18:47:22
--- NOTE | 2025-04-11 17:08 | ED_ITS ---
HPI - General Adult General Chief complaint: Abdominal Pain Stated complaint: Abd pain Time Seen by Provider: 04/11/25 17:08 Source: patient Mode of arrival: ambulatory Limitations: no limitations History of Present Illness ED Provider: Dr. Cardozo [facility] narrative: 39-year-old male presented hospital today for evaluation of epigastric and right upper quadrant pain. Patient has had recent surgery last for gallbladder removal for cholecystitis. No diarrhea, no nausea or vomiting Patient stated that he was doing well after surgery. However Wednesday he had sudden onset of increased pain and chills. It is also complaining of dysuria as well. He has been taking oxycodone ibuprofen with some alleviation of pain. Related Data Home Medications ?Medication ?Instructions ?Recorded ?Confirmed atorvastatin 20 mg tablet 40 mg PO DAILY 11/01/2403/21 levothyroxine 100 mcg tablet 100 mcg PO DAILY@0600 04/04/25 (Levo-T) omeprazole 20 mg capsule,delayed 20 mg PO DAILY@0630 0 11/01/24 04/04/25 release Previous Rx's ?Medication ?Instructions ?Recorded cholecalciferol (vitamin D3) 125 125 mcg PO DAILY #90 caps 11/29/24 mcg (5,000 unit) capsule mecobalamin (vitamin B12) 1,000 1,000 mcg sublingual D AILY #90 tabs 11/29/24 mcg disintegrating tablet,sublingual docusate sodium 100 mg capsule 100 mg PO BID PRN const ipation #30 04/05/25 (Colace) caps ibuprofen 600 mg tablet 600 mg PO Q6H PRN pain #30 t abs 04/05/25 oxycodone 5 mg tablet 5 mg PO Q4H PRN pain (scale score 04/05/25 7-10) #24 tabs Allergies Allergy/AdvReac Type Severity Reaction Status Date / Time levetiracetam (From [facility]) Allergy Severe ANAPHYLAXIS Verified 04/11/25 17:04 Review of Systems 2 Review of Systems: Pertinent review of systems as mentioned in [facility]. All other system otherwise negative. [facility] Past Medical History [facility] Narrative: Medical history as mentioned in [facility] Medical History (Updated 04/11/25 @ 18:56 by Tamera Cardozo DO) ROCHELLE (obstructive sleep apnea) Hypothyroidism Hyperlipidemia GERD (gastroesophageal reflux disease) Morbid obesity Seizure Surgical History (Updated 04/06/25 @ 07:25 by Milly Mora PA-C) H/O endoscopy H/O colonoscopy History of brain shunt H/O Spinal surgery Family History Family History Father No problems noted. Mother No problems noted. Social History Social History Household Members: Spouse Housing: House Are you a primary skin care specialist to a significant other at home: No Do you presently have visiting nurse or other home services: No Alcohol intake: former Patient Tobacco Use Status: Former Tobacco user Tobacco use type: Cigarette Years Smoked: 1 Smoked in Last 30 Days: No Use of substances other than those prescribed or required for medical reasons: No Advance Directives: No Advance Directives Information Provided: Yes service: No Current occupational status: employed Current occupation: [employer] Physical Exam ED Exam Exam: General: Pleasant, no distress, interacting appropriately Head: Normacephalic, atraumatic ENT: oral mucosa moist, neck supple, no tracheal deviation Cardiovascular: regular rate, regular rhythm, no murmurs, rubbing, gallops Respiratory: CTAB, no wheeze, rales, rhonchi Gastrointestinal: Soft, non distended, right upper quadrant tenderness on palpation. It has some superficial ecchymosis on exam. No erythema around the laparoscopic incision site. Neurological: Awake and alert, no facial droop noted Skin: Warm and dry Psychiatric: Appropriate mood and thoughts Vital Signs: Vital Signs - 24 hr 04/11/25 17:02 04/11/25 18:50 Temperature 101.4 F H 98.4 F Pulse Rate 91 106 H Respiratory Rate 18 18 Blood Pressure 128/70 109/67 Pulse Oximetry 98 99 Oxygen Delivery Method Room Air Room Air BMI result Body Mass Index 43.6 Medications Administered Discontinued Medications Generic Name Dose Route Start Last Admin Trade Name Freq PRN Reason Stop Dose Admin Sodium Chloride 1,000 mls @ 999 mls/hr 04/11/25 17:15 04/11/25 18:05 Ns IV 04/11/25 18:15 Infused .Q1H1M YEIMI Infusion Acetaminophen 1,000 mg in 100 mls @ 400 mls/hr 04/11/25 17:15 04/11/25 18:05 Ofirmev IV 04/11/25 17:29 Infused ONCE ONE Infusion Piperacillin Sod/Tazobactam 100 mls @ 200 mls/hr 04/11/25 17:47 04/11/25 18:10 Sod 4.5 gm/ Sodium Chloride IV 04/11/25 18:16 200 mls/hr ONCE ONE Administration Iohexol 100 ml 04/11/25 18:03 04/11/25 18:03 Iohexol 350 Mg/Ml 100 Ml Infus..Btl IV 04/11/25 18:04 100 ml ONCE ONE Administration Morphine Sulfate 4 mg 04/11/25 17:14 04/11/25 17:34 Morphine Sulfate 10 Mg/Ml Cartridge IVPUSH 04/11/25 17:15 4 mg ONCE ONE Administration Protocol Procedures Procedure Narrative Procedure Narrative: Ultrasound IV Under real time ultrasound guidance 20 gauge needle was placed in patient right forearm. Flushes and draws well. No complication Medical Decision Making Medical Decision Making MDM Narrative: This is a 39-year-old male recent surgery for cholecystitis on presented hospital today for increased pain fever and chills. Patient does have right upper quadrant tenderness. We will obtain a CT imaging to assess for any signs of abscess complications post surgery. We will plan to obtain a sepsis workup including blood culture, CBC CMP. Lipase. Lactic acid will be obtained as well. A dose of antibiotic will be given to the patient. Patient is complaining of dysuria. UA will be obtained to rule out UTI or pyelonephritis. CT imaging does show some inflammation in the gallbladder fossa. And pneumoperitoneum consistent with recent surgery. No obvious cause of his abdominal tenderness. This may be secondary to UTI. UA does show leuk esterase. Surgery team we will plan to admit patient for close observation and IV antibiotics. Differential Diagnosis Differential Diagnoses: The differential diagnosis associated with the presentation includes UTI, pyelonephritis, choledocholithiasis, abscess Consult Healthcare Provider Management of the patient was discussed with: Die Mounter (Dr. Arciniega (General Surgery)) Lab Data [facility] Lab Attestation statement: I reviewed the patient's lab results. 04/11/25 17:28 04/11/25 17:28 Labs: Lab Results 04/11/25 04/11/25 04/11/25 Range/Units 17:27 17:28 17:29 WBC 16.6 H (4.8-10.8) X10*3/uL RBC 5.02 (4.60-5.80) X10*6/uL Hgb 14.8 (14.0-18.0) g/dl Hct 43.4 (42.0-52.0) % MCV 86.5 (80.0-98.0) fL MCH 29.5 (27.0-33.0) pg MCHC 34.1 (31.0-36.0) g/dl RDW 12.3 (11.0-16.0) % Plt Count 267 (160-400) X10*3/uL MPV 9.3 L (9.4-12.4) fL Immature Gran % (Auto) 0.4 (0.0-0.4) % Neut % (Auto) 85.7 H (45-73) % Lymph % (Auto) 7.6 L (20-40) % [place] % (Auto) 6.0 (2-11) % Eos % (Auto) 0.2 (0-4) % Baso % (Auto) 0.1 (0-2) % Lymph # (Auto) 1.3 (1.2-4.9) X10*3/uL [place] # (Auto) 1.0 (0.1-1.2) X10*3/uL Eos # (Auto) 0.0 (0.0-0.4) X10*3/uL Baso # (Auto) 0.0 (0.0-0.2) X10*3/uL Abs Immat Gran (auto) 0.07 H (0.00-0.03) X10*3/uL Absolute Neuts (auto) 14.2 H (2.0-8.3) x10*3/uL Absolute Nucleated RBC 0.000 (0.0-0.012) X10*3/uL Nucleated RBC % (auto) 0.0 (0.0-0.2) /100WBC Hold Purple Top SEE NOTE Hold Blue Top SEE NOTE Sodium 137 (135-145) mmol/L Potassium 4.2 (3.3-5.1) mmol/L Chloride 102 (96-108) mmol/L Carbon Dioxide 27 (22-29) mmol/L Anion Gap 12 (12-20) BUN 14 (9-16) mg/dL Creatinine 0.79 (0.5-1.4) mg/dL Estim Creat Clear Calc 163.6 Estimated GFR > 60 Random Glucose 86 (60-115) mg/dL Lactic Acid 1.1 (0.5-2.0) mmol/L Calcium 9.9 (8.4-10.2) mg/dL Total Bilirubin 0.6 (0.0-1.0) mg/dL AST 31 (5-37) U/L ALT 38 (0-40) U/L Alkaline Phosphatase 73 (39-117) U/L Total Protein 7.8 (6.5-8.0) g/dL Albumin 4.8 (3.5-5.0) g/dL Lipase 29 (8-78) U/L Urine Color Urine Appearance Urine pH (5.0-9.0) Ur Specific [place] (1.005-1.025) Urine Protein (Neg-Trace) mg/dL Urine Glucose (UA) (Negative) mg/dL Urine Ketones (Negative) mg/dL Urine Blood (Negative) Urine Nitrite (Negative) Ur Leukocyte Esterase (Negative) Urine RBC (0-2) /HPF Urine WBC (0-5) /HPF Ur Squamous Epith Cells (0-2) /HPF Urine Bacteria (None Seen) Hyaline Casts (0-2) /LPF Blood Type A Positive Antibody Screen NEGATIVE 04/11/25 Range/Units 17:43 WBC (4.8-10.8) X10*3/uL RBC (4.60-5.80) X10*6/uL Hgb (14.0-18.0) g/dl Hct (42.0-52.0) % MCV (80.0-98.0) fL MCH (27.0-33.0) pg MCHC (31.0-36.0) g/dl RDW (11.0-16.0) % Plt Count (160-400) X10*3/uL MPV (9.4-12.4) fL Immature Gran % (Auto) (0.0-0.4) % Neut % (Auto) (45-73) % Lymph % (Auto) (20-40) % [place] % (Auto) (2-11) % Eos % (Auto) (0-4) % Baso % (Auto) (0-2) % Lymph # (Auto) (1.2-4.9) X10*3/uL [place] # (Auto) (0.1-1.2) X10*3/uL Eos # (Auto) (0.0-0.4) X10*3/uL Baso # (Auto) (0.0-0.2) X10*3/uL Abs Immat Gran (auto) (0.00-0.03) X10*3/uL Absolute Neuts (auto) (2.0-8.3) x10*3/uL Absolute Nucleated RBC (0.0-0.012) X10*3/uL Nucleated RBC % (auto) (0.0-0.2) /100WBC Hold Purple Top Hold Blue Top Sodium (135-145) mmol/L Potassium (3.3-5.1) mmol/L Chloride (96-108) mmol/L Carbon Dioxide (22-29) mmol/L Anion Gap (12-20) BUN (9-16) mg/dL Creatinine (0.5-1.4) mg/dL Estim Creat Clear Calc Estimated GFR Random Glucose (60-115) mg/dL Lactic Acid (0.5-2.0) mmol/L Calcium (8.4-10.2) mg/dL Total Bilirubin (0.0-1.0) mg/dL AST (5-37) U/L ALT (0-40) U/L Alkaline Phosphatase (39-117) U/L Total Protein (6.5-8.0) g/dL Albumin (3.5-5.0) g/dL Lipase (8-78) U/L Urine Color Yellow Urine Appearance Clear Urine pH 6.5 (5.0-9.0) Ur Specific [place] 1.015 (1.005-1.025) Urine Protein Negative (Neg-Trace) mg/dL Urine Glucose (UA) Negative (Negative) mg/dL Urine Ketones Trace (Negative) mg/dL Urine Blood Negative (Negative) Urine Nitrite Negative (Negative) Ur Leukocyte Esterase Small (1+) H (Negative) Urine RBC 0-2 (0-2) /HPF Urine WBC 21-50 H (0-5) /HPF Ur Squamous Epith Cells 0-2 (0-2) /HPF Urine Bacteria None Seen (None Seen) Hyaline Casts 0-2 (0-2) /LPF Blood Type Antibody Screen Independent Interpretation I performed an independent interpretation of an: CT Scan Radiology Impression Discussion of test interpretation with radiology: I have reviewed the radiologist's reading. Critical Care Time Critical Care Time Critical Care Time: Yes Total Critical Care Time: 40 Attestation: Time is exclusive of separately billable procedures. Time includes: direct patient care, patient reassessment, coordination of patient care, interpretation of data (laboratory data, pulse oximetry, arterial blood gases and chest xrays), review of patient's medical records, medical consultation and documentation of patient care. Procedures excluded from critical care time: central intravenous line placement and electrocardiography. Discharge Plan Discharge Clinical Impression: UTI (urinary tract infection), Sepsis Prescriptions: No Action cholecalciferol (vitamin D3) 125 mcg (5,000 unit) capsule 125 mcg PO DAILY Qty: 90 0RF mecobalamin (vitamin B12) 1,000 mcg tablet,disintegrating 1,000 mcg sublingual DAILY Qty: 90 0RF Rx Instructions: place tablet under tongue and allow to dissolve for at least30 secs before swallowing docusate sodium [Colace] 100 mg capsule 100 mg PO BID PRN (Reason: constipation) Qty: 30 0RF oxycodone 5 mg tablet 5 mg PO Q4H PRN (Reason: pain (scale score 7-10)) Qty: 24 0RF Rx Instructions: Partial Fill upon patient request. ibuprofen 600 mg tablet 600 mg PO Q6H PRN (Reason: pain) Qty: 30 0RF levothyroxine [Levo-T] 100 mcg tablet 100 mcg PO DAILY@0600 omeprazole 20 mg capsule,delayed release(DR/EC) 20 mg PO DAILY@0630 atorvastatin 20 mg tablet 40 mg PO DAILY Print Language: [place] Islander
[2025-04-11 17:35] LABS: MANUAL DIFF FLAG NO
[2025-04-11 17:42] LABS: Hematocrit 43.4 % (42.0-52.0); Hemoglobin 14.8 g/dl (14.0-18.0); Imm Gran Abs Auto 0.07 X10*3/uL (0.00-0.03); Imm Gran Pct Auto 0.4 % (0.0-0.4); Lymphocytes Absolute Auto 1.3 X10*3/uL (1.2-4.9); Mean Corpuscular HGB Conc 34.1 g/dl (31.0-36.0); Mean Corpuscular Hemoglobin 29.5 pg (27.0-33.0); Mean Corpuscular Volume 86.5 fL (80.0-98.0); NRBC Abs Auto 0.000 X10*3/uL (0.0-0.012); NRBC Pct Auto 0.0 /100WBC (0.0-0.2); Platelet Count 267 X10*3/uL (160-400); Red Blood Count 5.02 X10*6/uL (4.60-5.80); White Blood Count 16.6 X10*3/uL (4.8-10.8)
--- NOTE | 2025-04-11 17:49 | P.HPGS_ITS ---
History of Present Illness History of Present Illness Date of Service: 04/13/25 Chief complaint: Lower abdominal pain,UTI Narrative: Alfie Trujillo is a 39 year old male here in the ED for abdominal pain. He had undergone laparoscopic cholecystectomy for acute cholecystitis last Apr 05, 2025 whch was six days. This was a difficulut cholecystectomy in view of severe adhesions in the abdomen and inflammatory changes around the gallbladder. He was discharged on POD 1. He says he had been doing well at home until about 2 days ago when he noted some mild pain on the suprapubic area and lower abdomen. He says this was not severe at all until this morning. He says he has a lot of burning each time he urinates. He denies nausea or vomitting. He has had good BMs and flatus. He has had good oral intake. Review of Systems Constitutional: Constitutional: Reports chills and Reports fever(s) Cardiovascular: Cardiovascular: Denies chest pain, Denies dyspnea and Denies dyspnea on exertion Respiratory: Respiratory: Denies cough, Denies dyspnea and Denies dyspnea on exertion Gastrointestinal: Gastrointestinal: Denies hematochezia and Denies change in bowel habits Genitourinary: Genitourinary: Denies hematuria, Reports difficulty urinating and Reports dysuria Musculoskeletal: Musculoskeletal: Denies back pain and Denies limited range of motion Neurologic: Denies focal weakness and Denies convulsions Psychiatric: Psychiatric: Denies depression and Denies mood swings PMF Past Medical History Medical History (Updated 04/12/25 @ 08:01 by Milly Mora PA-C) Lower abdominal pain ROCHELLE (obstructive sleep apnea) Hypothyroidism Hyperlipidemia GERD (gastroesophageal reflux disease) Morbid obesity Seizure Family History Family History Father No problems noted. Mother No problems noted. Surgical History Surgical History H/O endoscopy H/O colonoscopy History of brain shunt H/O Spinal surgery Social History Social History Household Members: Spouse and Children Housing: House Are you a primary urgent care physician assistant to a significant other at home: No Do you presently have visiting nurse or other home services: No Alcohol intake: former Patient Tobacco Use Status: Former Tobacco user Tobacco use type: Cigarette Years Smoked: 1 Smoked in Last 30 Days: No Use of substances other than those prescribed or required for medical reasons: No Currently Displaying Signs/Symptoms of Drug Intoxication Withdrawal: No Have you been hit, kicked, punched, or otherwise hurt by someone within the past year? If so, by whom?: No Do you feel safe in your current relationship?: Yes Is there a partner from a previous relationship who is making you feel unsafe now?: No Are you made to feel afraid or neglected: No Advance Directives: No Advance Directives Information Provided: Yes Do you have a plan to hurt others: No Plan Recently lost weight without trying: No Eating poorly because of decreased appetite: No Nutrition Risks: No Nutritional Risk Poor oral hygiene: No service: No Current occupational status: employed Current occupation: [employer] Allergies Allergy/AdvReac Type Severity Reaction Status Date / Time levetiracetam (From [facility]) Allergy Severe ANAPHYLAXIS Verified 04/11/25 17:04 Active Medications: Current Medications Sodium Chloride (Ns) 1,000 mls @ 999 mls/hr IV .Q1H1M YEIMI Stop: 04/11/25 18:15 Last Admin: 04/11/25 17:31 Dose: 999 mls/hr Piperacillin Sod/Tazobactam (Sod 4.5 gm/ Sodium Chloride) 100 mls @ 200 mls/hr IV ONCE ONE Stop: 04/11/25 18:16 Home Medications ?Medication ?Instructions ?Recorded ?Confirmed ?Last Taken ?Type levothyroxine 100 mcg tablet 100 mcg PO DAILY@0600 04/11/25 04/11/25 08:00 History (Levo-T) omeprazole 20 mg capsule,delayed 20 mg PO DAILY@0630 0 11/01/24 04/11/25 04/11/25 08:00 History release atorvastatin 40 mg tablet 40 mg PO DAILY 04/11/2503/2204/11/25 08:00 History Physical Exam Vital Signs: Vital Signs: Last Vital Signs Temp 101.4 F H 04/11/25 17:02 Pulse 91 04/11/25 17:02 Resp 18 04/11/25 17:02 BP 128/70 04/11/25 17:02 Pulse Ox 98 04/11/25 17:02 O2 Del Method Room Air 04/11/25 17:02 BMI result Body Mass Index 43.6 Const: General: comfortable and no acute distress Orientation/consciousness: patient oriented x3 Eyes: Other: anicteric sclerae Neck: Neck: Yes no lymphadenopathy Resp: Auscultation: clear to auscultation bilaterally Cardio: Rhythm: regular rhythm GI: Other: mild diffuse tenderness, more on the LLQ, incisions clean and dry Palpation (GI): Soft to palpation, nontender and no guarding Neuro: General: patient oriented x3 Results Results Labs: Short CBC 04/11/25 Range/Units 17:28 WBC 16.6 H (4.8-10.8) X10*3/uL Hgb 14.8 (14.0-18.0) g/dl Hct 43.4 (42.0-52.0) % Plt Count 267 (160-400) X10*3/uL Abdomen CT scan report/results: report reviewed and image reviewed CT scan - pelvis: report reviewed and image reviewed Additional studies: Small amount of pneumoperitoneum likely related to recent surgery. Gas containing fluid collection in the gallbladder fossa is indeterminate. A biloma, abscess and postoperative seroma are possibilities correlate clinically and consider follow-up. Other findings as above. This document has been electronically signed by: Gunner Zavala MD on 04/11/2025 18:47:22 Assessment and Plan (1) Lower abdominal pain: Status: Acute He had laparoscopic cholecystectomy 6 days ago. He started to have lower abdominal pain mostly in the suprapubic area 2 days ago. This was worse today and he describes severe pain with urination. He does have WBCs and leukocyte esterase in his urinalysis consistent with a UTI. I have reviewed his CAT scan and the findings appeared to be not unexpected at this stage postoperatively. The fluid collection is likely to be from perioperative and postop changes. He does not have any abdominal pain or tenderness on the upper abdomen or on the right upper quadrant. He does not have any jaundice. His LFTs are normal. His lactate is normal. His abdominal exam is very benign. He is nontoxic looking With regards to his some changes on CAT scan in the gallbladder fossa, we will follow this closely as well. Currently he does not seem to have any planes with regards to this area. (2) UTI (urinary tract infection): Qualifiers: Hematuria presence: without hematuria Urinary tract infection type: site unspecified Qualified Code(s): N39.0 - Urinary tract infection, site not specified Status: Acute Etiology of his pain is likely a urinary tract infection. I have started him on IV ceftriaxone. I have admitted him because of his severe pain with urination, with fever and chills. We will await for culture reports. He understands the plan above. Quality Stroke Does the patient have a stroke diagnosis?: No VTE Prior VTE?: No VTE Risk Level:: Medical - moderate - high VTE Device Contraindication: N/A - Device Ordered VTE Drug Contraindication: N/A - Med Ordered Procedures Date of Service Date of Service: 04/13/25
[2025-04-11 17:56] LABS: Alanine Aminotransferase 38 U/L (0-40); Albumin Level 4.8 g/dL (3.5-5.0); Alkaline Phosphatase 73 U/L (39-117); Anion Gap 12 (12-20); Aspartate Amino Transferase 31 U/L (5-37); Blood Urea Nitrogen 14 mg/dL (9-16); Calcium 9.9 mg/dL (8.4-10.2); Carbon Dioxide 27 mmol/L (22-29); Chloride 102 mmol/L (96-108); Creatinine Clr Calc Pharmacy 163.6; Estimated Glomerular Filt Rate > 60; Lipase 29 U/L (8-78); Potassium 4.2 mmol/L (3.3-5.1); Sodium 137 mmol/L (135-145); Total Protein 7.8 g/dL (6.5-8.0)
[2025-04-11 17:58] LABS: Appearance Urine Clear; Glucose Urine UA Negative (Negative); PH 6.5 (5.0-9.0); Specific Gravity - Urine 1.015 (1.005-1.025); UMIC TRIGGER UA YES
[2025-04-11] MEDS: iohexoL 350 MG/ML 100 ML INFUS..BTL IV (18:03)
--- NOTE | 2025-04-11 20:05 | PHA.MEDREC ---
Addendum entered by Quentin Funez RPh 04/11/25 20:14: Reviewed by [facility] Original Note: Pharmacy Consult ? Medication Reconciliation Pharmacy has completed the medication reconciliation. Spoke with pt and he confirmed his medications.
[2025-04-11] MEDS: 0.9 % Sodium Chloride Flush 3 ML SYRINGE IVFLUSH (20:38)
[2025-04-12] MEDS: metroNIDAZOLE/NS 500 MG/100 ML PIGGYBACK 100 MG IV (00:34)
[2025-04-12 01:40] VITALS: TEMP 37.8
[2025-04-12 03:19] VITALS: BP 114/59; PULSE 110; RESP 17; TEMP 38.3
[2025-04-12] MEDS: oxyCODONE HCl Immed Release 5 MG TABLET 10 MG PO (05:56)
[2025-04-12 06:00] LABS: Hematocrit 40.0 % (42.0-52.0); Hemoglobin 13.5 g/dl (14.0-18.0); Imm Gran Abs Auto 0.06 X10*3/uL (0.00-0.03); Imm Gran Pct Auto 0.4 % (0.0-0.4); Lymphocytes Absolute Auto 1.7 X10*3/uL (1.2-4.9); MANUAL DIFF FLAG SCAN; Mean Corpuscular HGB Conc 33.8 g/dl (31.0-36.0); Mean Corpuscular Hemoglobin 29.0 pg (27.0-33.0); Mean Corpuscular Volume 86.0 fL (80.0-98.0); NRBC Abs Auto 0.000 X10*3/uL (0.0-0.012); NRBC Pct Auto 0.0 /100WBC (0.0-0.2); Platelet Count 234 X10*3/uL (160-400); Red Blood Count 4.65 X10*6/uL (4.60-5.80); SCAN SMEAR FLAG 1; White Blood Count 17.1 X10*3/uL (4.8-10.8)
[2025-04-12 06:29] VITALS: PULSE 92; TEMP 37.8
[2025-04-12] MEDS: Lactated Ringers 1,000 ML 100 ML IVCONT ×2 (06:38→16:18)
[2025-04-12 07:08] VITALS: BP 121/62; PULSE 100; RESP 16; TEMP 37.3; O2SAT 95
--- NOTE | 2025-04-12 07:55 | P.PNGS_ITS ---
Subjective Subjective Date of Service: 04/12/25 <Milly Mora PA-C - Last Filed: 04/12/25 08:01> 04/12/25 <Rodriguez Arciniega MD - Last Filed: 04/12/25 09:24> Interval history: Febrile and tachycardic overnight. C/o burning with urination and left sided mid back pain. Tolerating solid diet without nausea or vomiting. Denies RUQ pain. <Milly Mora PA-C - Last Filed: 04/12/25 08:01> Physical Exam 2 Vital Signs: Vital Signs: Last Vital Signs Temp 99.1 F 04/12/25 07:08 Pulse 100 04/12/25 07:08 Resp 16 04/12/25 07:08 BP 121/62 04/12/25 07:08 Pulse Ox 95 04/12/25 07:08 O2 Del Method Room Air 04/12/25 07:08 BMI result Body Mass Index 43.6 <Milly Mora PA-C - Last Filed: 04/12/25 08:01> Const: General: comfortable, no acute distress and alert <Milly Mora PA-C - Last Filed: 04/12/25 08:01> Orientation/consciousness: patient oriented x3 <MALIK Benoit Last Filed: 04/12/25 08:01> Resp: Effort & Inspection: normal respiratory effort and able to speak in complete sentences <Milly Mora PA-C - Last Filed: 04/12/25 08:01> GI: Other: corpulent abdomen incisions clean suprapubic and left flank/CVA tenderness mild RUQ at incisions <Milly Mora PA-C - Last Filed: 04/12/25 08:01> Palpation (GI): Soft to palpation <MALIK Benoit Last Filed: 04/12/25 08:01> Percussion: Yes normal to percussion <MALIK Benoit Last Filed: 04/12/25 08:01> Skin: Other: diaphoretic <MALIK Benoit Last Filed: 04/12/25 08:01> General skin exam: no rashes or lesions noted <Milly Mora PA-C - Last Filed: 04/12/25 08:01> Neuro: General: patient oriented x3 and moves all extremities <Milly Mora PA-C - Last Filed: 04/12/25 08:01> Objective Data Active Medications Acetaminophen (Acetaminophen 325 Mg Tablet) 975 mg PO Q6H PRN PRN Reason: Pain, Mild 1-3,fever,headache Atorvastatin Calcium (Atorvastatin Calcium 40 Mg Tablet) 40 mg PO DAILY [facility] Calcium Carbonate (Calcium Carbonate 750 Mg Tab.Chew) 750 mg PO Q4H PRN PRN Reason: Heartburn Heparin Sodium (Porcine) (Heparin Sodium,Porcine 5,000 Unit/Ml Vial) 5,000 unit SUBCUT Q8H [facility] Metronidazole (Flagyl) 500 mg in 100 mls @ 100 mls/hr IV Q8H [facility] Last Infusion: 04/12/25 01:39 Dose: Infused Documented By: HARRY Lactated Ringer's (Lr) 1,000 mls @ 100 mls/hr IVCONT .Q10H [facility] Last Infusion: 04/12/25 06:38 Dose: 0 mls/hr Documented By: HARRY Ceftriaxone Sodium 2 gm/ (Sodium Chloride) 50 mls @ 100 mls/hr IV Q24H [facility] Ketorolac Tromethamine (Ketorolac Tromethamine 30 Mg/Ml Vial) 30 mg IVPUSH Q6H [facility] Last Admin: 04/12/25 05:56 Dose: 30 mg Documented By: HARRY Levothyroxine Sodium (Levothyroxine Sodium 100 Mcg Tablet) 100 mcg PO DAILY@0600 [facility] Last Admin: 04/12/25 05:56 Dose: 100 mcg Documented By: HARRY Magnesium Hydroxide (Milk Of Magnesia 30 Ml Oral.Susp) 30 ml PO DAILY PRN PRN Reason: Constipation Melatonin (Melatonin 3 Mg Tablet) 6 mg PO BEDTIME PRN PRN Reason: Insomnia Morphine Sulfate (Morphine Sulfate 4 Mg/Ml Cartridge) 2 mg IVPUSH Q4H PRN; Protocol PRN Reason: Pain, Severe (Pain Scale 7-10) Last Admin: 04/11/25 22:25 Dose: 2 mg Documented By: HARRY Omeprazole (Omeprazole 20 Mg Capsule.Dr) 20 mg PO DAILY@0630 [facility] Last Admin: 04/12/25 05:56 Dose: 20 mg Documented By: HARRY Oxycodone HCl (Oxycodone Hcl Immed Release 5 Mg Tablet) 10 mg PO Q4H PRN PRN Reason: Pain, Moderate(Pain Scale 4-6) Last Admin: 04/12/25 05:56 Dose: 10 mg Documented By: HARRY Sodium Chloride (0.9 % Sodium Chloride Flush 3 Ml Syringe) 3 ml IVFLUSH QSHIFT [facility] Last Admin: 04/11/25 20:38 Dose: 3 ml Documented By: HARRY <Milly Mora PA-C - Last Filed: 04/12/25 08:01> Labs CBC & Chem 7: 04/12/25 05:29 04/11/25 17:28 <Milly Mora PA-C - Last Filed: 04/12/25 08:01> Labs: Laboratory Results - last 24 hr 04/11/25 04/11/25 04/11/25 17:27 17:28 17:29 MCV 86.5 MCH 29.5 MCHC 34.1 RDW 12.3 Plt Count 267 MPV 9.3 L Immature Gran % (Auto) 0.4 Neut % (Auto) 85.7 H Lymph % (Auto) 7.6 L [place] % (Auto) 6.0 Eos % (Auto) 0.2 Baso % (Auto) 0.1 Lymph # (Auto) 1.3 [place] # (Auto) 1.0 Eos # (Auto) 0.0 Baso # (Auto) 0.0 Abs Immat Gran (auto) 0.07 H Absolute Neuts (auto) 14.2 H Absolute Nucleated RBC 0.000 Nucleated RBC % (auto) 0.0 Smear Tech's Comments Hold Purple Top SEE NOTE Hold Blue Top SEE NOTE Anion Gap 12 Estim Creat Clear Calc 163.6 Estimated GFR > 60 Random Glucose 86 Lactic Acid 1.1 Calcium 9.9 Total Bilirubin 0.6 AST 31 ALT 38 Alkaline Phosphatase 73 Total Protein 7.8 Albumin 4.8 Lipase 29 Urine Color Urine Appearance Urine pH Ur Specific [place] Urine Protein Urine Glucose (UA) Urine Ketones Urine Blood Urine Nitrite Ur Leukocyte Esterase Urine RBC Urine WBC Ur Squamous Epith Cells Urine Bacteria Hyaline Casts Blood Type A Positive Antibody Screen NEGATIVE 04/11/25 04/12/25 17:43 05:29 MCV 86.0 MCH 29.0 MCHC 33.8 RDW 12.6 Plt Count 234 MPV 9.5 Immature Gran % (Auto) 0.4 Neut % (Auto) 79.8 H Lymph % (Auto) 10.1 L [place] % (Auto) 9.5 Eos % (Auto) 0.1 Baso % (Auto) 0.1 Lymph # (Auto) 1.7 [place] # (Auto) 1.6 H Eos # (Auto) 0.0 Baso # (Auto) 0.0 Abs Immat Gran (auto) 0.06 H Absolute Neuts (auto) 13.7 H Absolute Nucleated RBC 0.000 Nucleated RBC % (auto) 0.0 Smear Tech's Comments VERIFIED Hold Purple Top Hold Blue Top Anion Gap Estim Creat Clear Calc Estimated GFR Random Glucose Lactic Acid Calcium Total Bilirubin AST ALT Alkaline Phosphatase Total Protein Albumin Lipase Urine Color Yellow Urine Appearance Clear Urine pH 6.5 Ur Specific [place] 1.015 Urine Protein Negative Urine Glucose (UA) Negative Urine Ketones Trace Urine Blood Negative Urine Nitrite Negative Ur Leukocyte Esterase Small (1+) H Urine RBC 0-2 Urine WBC 21-50 H Ur Squamous Epith Cells 0-2 Urine Bacteria None Seen Hyaline Casts 0-2 Blood Type Antibody Screen <Milly Mora PA-C - Last Filed: 04/12/25 08:01> Procedures Date of Service Date of Service: 04/12/25 <Milly Mora PA-C - Last Filed: 04/12/25 08:01> 04/12/25 <Rodriguez Arciniega MD - Last Filed: 04/12/25 09:24> Progress Note: A&P Assessment and plan (1) Pyelonephritis: Status: Acute <Milly Mora PA-C - Last Filed: 04/12/25 08:01> Assessment and Plan: Continues to have burning with urination Pain in the suprapubic area, radiating to the lower back No vomiting Tolerating diet Abdomen is soft and very benign Treat for UTI for now IV Rocephin Stable vital signs Seen and examined independently <Rodriguez Arciniega MD - Last Filed: 04/12/25 09:24> (2) UTI (urinary tract infection): Status: Acute <MALIK Benoit Last Filed: 04/12/25 08:01> Assessment and Plan: Hx of lap elke a little over a week ago who came in c/o lower abdominal pain and burning on urination. UA suggestive of UTI. CT scan did show fluid collection in the gallbladder fossa although this was felt due to post op changes as he has been eating normally and has no RUQ pain/significant tenderness on exam. He was admitted for further treatment of the UTI. He reports more left sided back pain this morning suggestive of pyelonephritis. He was on 1gm IV rocephin and another gram was administered this morning given his BMI >30, will cont with rocephin 2g IV q 24h. Started on IVF. WBC remains elevated this morning. Will obtain hospitalist consult for pyelo. <MALIK Benoit Last Filed: 04/12/25 08:01> Time Spent With Patient Time: Total time managing care of this patient today ____ minutes. <MALIK Benoit Last Filed: 04/12/25 08:01> Quality Stroke Does the patient have a stroke diagnosis?: No <MALIK Benoit Last Filed: 04/12/25 08:01> VTE Prior VTE?: No <MALIK Benoit Last Filed: 04/12/25 08:01> VTE Risk Level:: Medical - moderate - high <MALIK Benoit Last Filed: 04/12/25 08:01> VTE Device Contraindication: N/A - Device Ordered <MALIK Benoit Last Filed: 04/12/25 08:01> VTE Drug Contraindication: N/A - Med Ordered <MALIK Benoit Last Filed: 04/12/25 08:01>
--- NOTE | 2025-04-12 11:30 | P.CONIM_ITS ---
History of Present Illness Data of Consult Service Date: 04/12/25 Primary Care Provider: Sarah Dang MD HPI Pt is a 39 year old male with PMH of morbid obesity, GERD, hypothyroidism, hyperlipidemia, hx of spina bifida and hydrocephalus with SCISSORS GRINDER shunt, known gallstones who presented to the ED with complaints of RUQ abd pain who was admitted to surgery on 04/11/2025 status post lap choly on 04/05/2025 (complicated by adhesions in the abdomen, inflammatory changes around the gallbladder). He was readmitted after being discharged on 04/06/2025 for acute pain in the suprapubic area and lower abdomen. He was initiated on ceftriaxone, however he continued to be afebrile, with up trending leukocytosis for which Medicine The patient started experiencing pain on Wednesday night, which worsened by Wednesday night. On Wednesday around 2 PM, the patient began feeling a burning sensation when urinating, accompanied by chills and fever. This prompted a call to 911, leading to hospitalization. The patient reported increased pain upon urination and tightness and pain in the lower back, possibly the kidney area. The patient mentioned that the urine color changed from clear to red, which was attributed to the medication being administered. Chills were experienced, but the patient did not feel nausea, vomiting, or chest pain. The patient reported sweating after receiving antibiotics but felt feverish once the antibiotic administration concluded. Patient's leukocytosis slightly up trending from 16.6-17.1, low-grade fever 100.9 overnight, on ceftriaxone IV CTA/P with contrast done on 04/11/2025-small amount of pneumoperitoneum related to prior surgery (laparoscopic cholecystectomy), gas containing fluid collection in the gallbladder fossa indeterminate, a biloma abscess or postop seroma possibilities. No nephrolithiasis or obstructive pathology noted in the CAT scan of abdomen and pelvis. Patient likely needs a few more days of IV ceftriaxone and following up on the culture and sensitivity on the urine sample drawn on 04/11/2025. Appears hemodynamically stable, daughter and son present at the bedside during this entire conversation. Review of Systems 2 Review of Systems: Yes all other systems are reviewed and are negative [facility] Medical History (Updated 04/12/25 @ 08:01 by Milly Mora PA-C) Lower abdominal pain ROCHELLE (obstructive sleep apnea) Hypothyroidism Hyperlipidemia GERD (gastroesophageal reflux disease) Morbid obesity Seizure Family History Father No problems noted. Mother No problems noted. Surgical History H/O endoscopy H/O colonoscopy History of brain shunt H/O Spinal surgery Social History Household Members: Spouse and Children Housing: House Are you a primary hearing healthcare practitioner to a significant other at home: No Do you presently have visiting nurse or other home services: No Alcohol intake: former Patient Tobacco Use Status: Former Tobacco user Tobacco use type: Cigarette Years Smoked: 1 Smoked in Last 30 Days: No Use of substances other than those prescribed or required for medical reasons: No Currently Displaying Signs/Symptoms of Drug Intoxication Withdrawal: No Have you been hit, kicked, punched, or otherwise hurt by someone within the past year? If so, by whom?: No Do you feel safe in your current relationship?: Yes Is there a partner from a previous relationship who is making you feel unsafe now?: No Are you made to feel afraid or neglected: No Advance Directives: No Advance Directives Information Provided: Yes Do you have a plan to hurt others: No Plan Recently lost weight without trying: No Eating poorly because of decreased appetite: No Nutrition Risks: No Nutritional Risk Poor oral hygiene: No service: No Current occupational status: employed Current occupation: [employer] Allergies Allergy/AdvReac Type Severity Reaction Status Date / Time levetiracetam (From [facility]) Allergy Severe ANAPHYLAXIS Verified 04/11/25 17:04 Active Medications: Current Medications Acetaminophen (Acetaminophen 325 Mg Tablet) 975 mg PO Q6H PRN PRN Reason: Pain, Mild 1-3,fever,headache Atorvastatin Calcium (Atorvastatin Calcium 40 Mg Tablet) 40 mg PO DAILY [facility] Last Admin: 04/12/25 08:17 Dose: 40 mg Calcium Carbonate (Calcium Carbonate 750 Mg Tab.Chew) 750 mg PO Q4H PRN PRN Reason: Heartburn Heparin Sodium (Porcine) (Heparin Sodium,Porcine 5,000 Unit/Ml Vial) 5,000 unit SUBCUT Q8H YEIMI Lactated Ringer's (Lr) 1,000 mls @ 100 mls/hr IVCONT .Q10H [facility] Last Infusion: 04/12/25 06:38 Dose: 0 mls/hr Ceftriaxone Sodium 2 gm/ (Sodium Chloride) 50 mls @ 100 mls/hr IV Q24H [facility] Ketorolac Tromethamine (Ketorolac Tromethamine 30 Mg/Ml Vial) 30 mg IVPUSH Q6H [facility] Last Admin: 04/12/25 05:56 Dose: 30 mg Levothyroxine Sodium (Levothyroxine Sodium 100 Mcg Tablet) 100 mcg PO DAILY@0600 [facility] Last Admin: 04/12/25 05:56 Dose: 100 mcg Magnesium Hydroxide (Milk Of Magnesia 30 Ml Oral.Susp) 30 ml PO DAILY PRN PRN Reason: Constipation Melatonin (Melatonin 3 Mg Tablet) 6 mg PO BEDTIME PRN PRN Reason: Insomnia Morphine Sulfate (Morphine Sulfate 4 Mg/Ml Cartridge) 2 mg IVPUSH Q4H PRN; Protocol PRN Reason: Pain, Severe (Pain Scale 7-10) Last Admin: 04/12/25 09:03 Dose: 2 mg Omeprazole (Omeprazole 20 Mg Capsule.Dr) 20 mg PO DAILY@0630 [facility] Last Admin: 04/12/25 05:56 Dose: 20 mg Oxycodone HCl (Oxycodone Hcl Immed Release 5 Mg Tablet) 10 mg PO Q4H PRN PRN Reason: Pain, Moderate(Pain Scale 4-6) Last Admin: 04/12/25 05:56 Dose: 10 mg Phenazopyridine HCl (Phenazopyridine Hcl 100 Mg Tablet) 100 mg PO TIDWM [facility] Stop: 04/13/25 17:01 Last Admin: 04/12/25 08:17 Dose: 100 mg Sodium Chloride (0.9 % Sodium Chloride Flush 3 Ml Syringe) 3 ml IVFLUSH QSHIFT [facility] Last Admin: 04/12/25 08:15 Dose: Not Given Home Medications ?Medication ?Instructions ?Recorded ?Confirmed ?Last Taken ?Type levothyroxine 100 mcg tablet 100 mcg PO DAILY@0600 04/11/25 04/11/25 08:00 History (Levo-T) omeprazole 20 mg capsule,delayed 20 mg PO DAILY@0630 0 11/01/24 04/11/25 04/11/25 08:00 History release atorvastatin 40 mg tablet 40 mg PO DAILY 04/11/2503/2204/11/25 08:00 History Physical Exam 2 Vital Signs and Narrative: Vital Signs: Last Vital Signs Temp 99.1 F 04/12/25 07:08 Pulse 100 04/12/25 07:08 Resp 16 04/12/25 07:08 BP 121/62 04/12/25 07:08 Pulse Ox 95 04/12/25 07:08 O2 Del Method Room Air 04/12/25 07:08 BMI result Body Mass Index 43.6 General: AOx3, mildly uncomfortable Resp: CTA bilaterally CVS: S1, S2, RRR GI: +BS, NT, no distention : b/l Skin: Warm, dry Neuro:Motor grossly intact bilaterally Extremities: No edema Psych: Appropriate affect Results Labs 04/12/25 05:29 04/11/25 17:28 Labs: Laboratory Results - last 24 hr 04/11/25 04/11/25 04/11/25 17:27 17:28 17:29 MCV 86.5 MCH 29.5 MCHC 34.1 RDW 12.3 Plt Count 267 MPV 9.3 L Immature Gran % (Auto) 0.4 Neut % (Auto) 85.7 H Lymph % (Auto) 7.6 L [place] % (Auto) 6.0 Eos % (Auto) 0.2 Baso % (Auto) 0.1 Lymph # (Auto) 1.3 [place] # (Auto) 1.0 Eos # (Auto) 0.0 Baso # (Auto) 0.0 Abs Immat Gran (auto) 0.07 H Absolute Neuts (auto) 14.2 H Absolute Nucleated RBC 0.000 Nucleated RBC % (auto) 0.0 Smear Tech's Comments Hold Purple Top SEE NOTE Hold Blue Top SEE NOTE Anion Gap 12 Estim Creat Clear Calc 163.6 Estimated GFR > 60 Random Glucose 86 Lactic Acid 1.1 Calcium 9.9 Total Bilirubin 0.6 AST 31 ALT 38 Alkaline Phosphatase 73 Total Protein 7.8 Albumin 4.8 Lipase 29 Urine Color Urine Appearance Urine pH Ur Specific [place] Urine Protein Urine Glucose (UA) Urine Ketones Urine Blood Urine Nitrite Ur Leukocyte Esterase Urine RBC Urine WBC Ur Squamous Epith Cells Urine Bacteria Hyaline Casts Blood Type A Positive Antibody Screen NEGATIVE 04/11/25 04/12/25 17:43 05:29 MCV 86.0 MCH 29.0 MCHC 33.8 RDW 12.6 Plt Count 234 MPV 9.5 Immature Gran % (Auto) 0.4 Neut % (Auto) 79.8 H Lymph % (Auto) 10.1 L [place] % (Auto) 9.5 Eos % (Auto) 0.1 Baso % (Auto) 0.1 Lymph # (Auto) 1.7 [place] # (Auto) 1.6 H Eos # (Auto) 0.0 Baso # (Auto) 0.0 Abs Immat Gran (auto) 0.06 H Absolute Neuts (auto) 13.7 H Absolute Nucleated RBC 0.000 Nucleated RBC % (auto) 0.0 Smear Tech's Comments VERIFIED Hold Purple Top Hold Blue Top Anion Gap Estim Creat Clear Calc Estimated GFR Random Glucose Lactic Acid Calcium Total Bilirubin AST ALT Alkaline Phosphatase Total Protein Albumin Lipase Urine Color Yellow Urine Appearance Clear Urine pH 6.5 Ur Specific [place] 1.015 Urine Protein Negative Urine Glucose (UA) Negative Urine Ketones Trace Urine Blood Negative Urine Nitrite Negative Ur Leukocyte Esterase Small (1+) H Urine RBC 0-2 Urine WBC 21-50 H Ur Squamous Epith Cells 0-2 Urine Bacteria None Seen Hyaline Casts 0-2 Blood Type Antibody Screen Assessment and Plan (1) UTI (urinary tract infection): Qualifiers: Hematuria presence: without hematuria Urinary tract infection type: s ite unspecified Qualified Code(s): N39.0 - Urinary tract infection, site not specified Status: Acute Pt is a 39 year old male with PMH of morbid obesity, GERD, hypothyroidism, hyperlipidemia, hx of spina bifida and hydrocephalus with SCISSORS GRINDER shunt, known gallstones who presented to the ED with complaints of RUQ abd pain who was admitted to surgery on 04/11/2025 status post lap choly on 04/05/2025 (complicated by adhesions in the abdomen, inflammatory changes around the gallbladder). He was readmitted after being discharged on 04/06/2025 for acute pain in the suprapubic area and lower abdomen with inconclusive UA. He was initiated on ceftriaxone, medicine being consulted as he continues to have febrile episodes and complains of pain. Dysuria, frequency and fever with most likely source-likely meeting SIRS criteria POA CT scan negative for any acute objective evidence of pyelonephritis hence deemed less likely Agree with continuing ceftriaxone patient likely we will need a few more days of IV antibiotics to respond Daily CBC We will follow-up UA with C/S, we will tailor ABX accordingly Patient reports suboptimal pain control-defer to the primary team surgery-would like to avoid opioids given opioid induced constipation/worsening of abdominal pain-encouraged to use nonnarcotic pain meds Watch for any diarrhea on antibiotics-probably check C diff and GI panel if diarrhea noted Hypothyroidism-resume home levothyroxine Hypovitaminosis D-continue home med HLD continue statin Constipation prophylaxis continue Colace consider higher GI regimen if noted to have constipation GERD continue home omeprazole Thank you for consulting medicine-we will continue to follow with you. This note is constructed using voice recognition software. While every effort has been made to ensure accuracy, leather goods i assembler errors may have been included.
--- NOTE | 2025-04-12 11:54 | MHC.CM.PN ---
PATIENT LIVES IN A HOME W/ , DAUGHTER, SON IN LAW. INDEPENDENT W/ ALL CARE. DENIES USE OF DME OR SERVICES. PCP AVE YAN MD REPORTS HCP IS HIS , LUIS CARLOS. COPY REQUESTED. DP: HOME SELF CARE, TO TRANSPORT. CM WILL CONTINUE TO FOLLOW.
[2025-04-12 14:00] LABS: Appearance Urine Hazy; PH 5.5 (5.0-9.0); Specific Gravity - Urine 1.025 (1.005-1.025); UMIC TRIGGER UA YES
--- NOTE | 2025-04-12 14:27 | PM.EVENT ---
Event Note Date of Service: 04/13/25 Event Note: Seen on afternoon rounds Main complaint is burning with urination Says this radiates to the lower back Tolerating diet well Abdomen is soft and benign Continue IV Rocephin No further fever so far He looks comfortable Still awaiting input from hospitalist service Time Spent With Patient Time: Total time managing care of this patient today ____ minutes.
[2025-04-12 16:00] VITALS: BP 118/68; PULSE 93; RESP 12; TEMP 37.9; O2SAT 97
[2025-04-12 20:00] VITALS: BP 112/70; PULSE 80; RESP 18; TEMP 36.2; O2SAT 98
[2025-04-12] MEDS: 0.9 % Sodium Chloride Flush 3 ML SYRINGE IVFLUSH (21:46)
[2025-04-13] MEDS: Lactated Ringers 1,000 ML 100 ML IVCONT ×3 (00:55→21:15)
[2025-04-13 03:40] VITALS: BP 122/64; PULSE 72; RESP 18; TEMP 36.7; O2SAT 96
[2025-04-13 07:55] VITALS: BP 109/64; PULSE 69; RESP 17; TEMP 36.2; O2SAT 96
[2025-04-13 08:22] LABS: MANUAL DIFF FLAG NO
[2025-04-13] MEDS: oxyCODONE HCl Immed Release 5 MG TABLET 10 MG PO ×3 (08:23→18:10)
--- NOTE | 2025-04-13 08:23 | PM.PNGS ---
Subjective Subjective Date of Service: 04/13/25 Interval history: says he still has dysuria but this has improved compared to yesterday Tmax 100.3 yesterday but no further fevers overnight Good oral intake Has BMs No nausea or vomiting Denies upper abdominal pain Physical Exam Vital Signs: Vital Signs: Last Vital Signs Temp 97.1 F 04/13/25 07:55 Pulse 69 04/13/25 07:55 Resp 17 04/13/25 07:55 BP 109/64 04/13/25 07:55 Pulse Ox 96 04/13/25 07:55 O2 Del Method Room Air 04/13/25 07:55 BMI result Body Mass Index 43.6 Const: General: comfortable and no acute distress Nutritional Appearance: obese Resp: Effort & Inspection: normal respiratory effort Cardio: Rate: regular rate GI: Other: No tenderness in the upper abdomen Palpation (GI): Soft to palpation, Tenderness to palpation present (GI) (Mild tenderness suprapubic area) and no guarding Objective Data Active Medications Acetaminophen (Acetaminophen 325 Mg Tablet) 975 mg PO Q6H PRN PRN Reason: Pain, Mild 1-3,fever,headache Last Admin: 04/12/25 16:13 Dose: 975 mg Documented By: ENEDINA Atorvastatin Calcium (Atorvastatin Calcium 40 Mg Tablet) 40 mg PO DAILY [facility] Last Admin: 04/12/25 08:17 Dose: 40 mg Documented By: ENEDINA Calcium Carbonate (Calcium Carbonate 750 Mg Tab.Chew) 750 mg PO Q4H PRN PRN Reason: Heartburn Cyanocobalamin (Cyanocobalamin (Vitamin B-12) 1,000 Mcg Tablet) 1,000 mcg PO DAILY [facility] Docusate Sodium (Docusate Sodium 100 Mg Capsule) 100 mg PO BID PRN PRN Reason: Constipation Heparin Sodium (Porcine) (Heparin Sodium,Porcine 5,000 Unit/Ml Vial) 5,000 unit SUBCUT Q8H [facility] Last Admin: 04/13/25 00:55 Dose: 5,000 unit Documented By: HARRY Lactated Ringer's (Lr) 1,000 mls @ 100 mls/hr IVCONT .Q10H [facility] Last Admin: 04/13/25 00:55 Dose: 100 mls/hr Documented By: HARRY Ceftriaxone Sodium 2 gm/ (Sodium Chloride) 50 mls @ 100 mls/hr IV Q24H [facility] Last Infusion: 04/13/25 07:06 Dose: Infused Documented By: GREER Ketorolac Tromethamine (Ketorolac Tromethamine 30 Mg/Ml Vial) 30 mg IVPUSH Q6H [facility] Last Admin: 04/13/25 06:11 Dose: 30 mg Documented By: HARRY Levothyroxine Sodium (Levothyroxine Sodium 100 Mcg Tablet) 100 mcg PO DAILY@0600 [facility] Last Admin: 04/13/25 06:11 Dose: 100 mcg Documented By: HARRY Magnesium Hydroxide (Milk Of Magnesia 30 Ml Oral.Susp) 30 ml PO DAILY PRN PRN Reason: Constipation Melatonin (Melatonin 3 Mg Tablet) 6 mg PO BEDTIME PRN PRN Reason: Insomnia Last Admin: 04/13/25 01:31 Dose: 6 mg Documented By: HARRY Morphine Sulfate (Morphine Sulfate 4 Mg/Ml Cartridge) 2 mg IVPUSH Q4H PRN; Protocol PRN Reason: Pain, Severe (Pain Scale 7-10) Last Admin: 04/12/25 21:45 Dose: 2 mg Documented By: HARRY Omeprazole (Omeprazole 20 Mg Capsule.Dr) 20 mg PO DAILY@0630 [facility] Last Admin: 04/13/25 06:11 Dose: 20 mg Documented By: HARRY Oxycodone HCl (Oxycodone Hcl Immed Release 5 Mg Tablet) 10 mg PO Q4H PRN PRN Reason: Pain, Moderate(Pain Scale 4-6) Last Admin: 04/12/25 05:56 Dose: 10 mg Documented By: HARRY Oxycodone HCl (Oxycodone Hcl Immed Release 5 Mg Tablet) 5 mg PO Q4H PRN PRN Reason: pain (scale score 7-10) Phenazopyridine HCl (Phenazopyridine Hcl 100 Mg Tablet) 100 mg PO TIDWM [facility] Stop: 04/13/25 17:01 Last Admin: 04/12/25 18:05 Dose: 100 mg Documented By: ENEDINA Sodium Chloride (0.9 % Sodium Chloride Flush 3 Ml Syringe) 3 ml IVFLUSH QSHIFT [facility] Last Admin: 04/12/25 21:46 Dose: 3 ml Documented By: HARRY Vitamin D (Cholecalciferol (Vitamin D3) 25 Mcg Tablet) 125 mcg PO DAILY [facility] Labs 04/13/25 08:16 04/11/25 17:28 Labs: Laboratory Results - last 24 hr 04/12/25 13:46 Urine Color [place] Urine Appearance Hazy Urine pH 5.5 Ur Specific [place] 1.025 Urine Protein See Note Urine Glucose (UA) See Note Urine Ketones See Note Urine Blood Trace Urine Nitrite See Note Ur Leukocyte Esterase Small (1+) H Urine RBC 6-10 H Urine WBC >50 H Ur Squamous Epith Cells 6-10 Urine Bacteria None Seen Hyaline Casts 0-2 Microbiology Microbiology Results: Microbiology 04/11/25 17:28 Blood Culture - Preliminary Blood - Venous No growth after 24 hours. 04/11/25 17:28 Blood Culture - Preliminary Blood - Venous No growth after 24 hours. Procedures Date of Service Date of Service: 04/13/25 Progress Note: A&P Assessment and plan (1) UTI (urinary tract infection): Status: Acute Assessment and Plan: Fever pattern has improved No fever overnight Good GI functions Dysuria has improved Continue ceftriaxone Discussed with the hospitalist service yesterday Time Spent With Patient Time: Total time managing care of this patient today ____ minutes. Quality Stroke Does the patient have a stroke diagnosis?: No VTE Prior VTE?: No VTE Risk Level:: Medical - moderate - high VTE Device Contraindication: N/A - Device Ordered VTE Drug Contraindication: N/A - Med Ordered
[2025-04-13 08:32] LABS: Hematocrit 38.4 % (42.0-52.0); Hemoglobin 13.0 g/dl (14.0-18.0); Imm Gran Abs Auto 0.04 X10*3/uL (0.00-0.03); Imm Gran Pct Auto 0.3 % (0.0-0.4); Lymphocytes Absolute Auto 1.9 X10*3/uL (1.2-4.9); Mean Corpuscular HGB Conc 33.9 g/dl (31.0-36.0); Mean Corpuscular Hemoglobin 29.4 pg (27.0-33.0); Mean Corpuscular Volume 86.9 fL (80.0-98.0); NRBC Abs Auto 0.000 X10*3/uL (0.0-0.012); NRBC Pct Auto 0.0 /100WBC (0.0-0.2); Platelet Count 225 X10*3/uL (160-400); Red Blood Count 4.42 X10*6/uL (4.60-5.80); White Blood Count 11.8 X10*3/uL (4.8-10.8)
--- NOTE | 2025-04-13 11:07 | MHC.CM.PN ---
Patient not medically cleared for dc. CM will continue to follow.
[2025-04-13 15:36] VITALS: BP 116/69; PULSE 67; RESP 12; TEMP 36.2; O2SAT 97
--- NOTE | 2025-04-13 16:00 | PM.EVENT ---
Event Note Date of Service: 04/13/25 Event Note: UTI still complaining of some dysuria, febrile overnight urine culture GNR, blood culture negative continue ceftriaxone, follow up culture and sensitivities and adjust abx as needed Time Spent With Patient Time: Total time managing care of this patient today ____ minutes.
--- NOTE | 2025-04-13 16:47 | PM.EVENT ---
Event Note Date of Service: 04/13/25 Event Note: Seen on afternoon rounds Still having dysuria but says this has better significantly Good oral intake Has BMs and flatus Abdomen is soft and benign Denies abdominal pain in the upper abdomen Continue IV ceftriaxone Repeat CBC in a.m. No fever today Looks well and appears comfortable Appreciate hospitalist follow up Time Spent With Patient Time: Total time managing care of this patient today ____ minutes.
[2025-04-13 19:44] VITALS: BP 123/69; PULSE 70; RESP 20; TEMP 36.1; O2SAT 98
[2025-04-14] MEDS: oxyCODONE HCl Immed Release 5 MG TABLET 10 MG PO (01:08)
[2025-04-14 04:00] VITALS: BP 133/74; PULSE 60; RESP 16; TEMP 36; O2SAT 97
[2025-04-14 07:38] LABS: Hematocrit 36.2 % (42.0-52.0); Hemoglobin 11.9 g/dl (14.0-18.0); Mean Corpuscular HGB Conc 32.9 g/dl (31.0-36.0); Mean Corpuscular Hemoglobin 28.7 pg (27.0-33.0); Mean Corpuscular Volume 87.4 fL (80.0-98.0); NRBC Abs Auto 0.000 X10*3/uL (0.0-0.012); NRBC Pct Auto 0.0 /100WBC (0.0-0.2); Platelet Count 212 X10*3/uL (160-400); Red Blood Count 4.14 X10*6/uL (4.60-5.80); White Blood Count 6.9 X10*3/uL (4.8-10.8)
[2025-04-14 07:41] VITALS: BP 105/61; PULSE 64; RESP 18; TEMP 36.5; O2SAT 97
[2025-04-14 12:26] VITALS: BP 126/72; PULSE 72; RESP 18; TEMP 36.2; O2SAT 97
--- NOTE | 2025-04-14 12:30 | P.DS_ITS ---
DS: Providers Provider Date of Service: 04/14/25 Date of admission: 04/11/25 18:52 Date of discharge: 04/14/25 Primary care physician: Sarah Dang MD Attending physician on admission: Rodriguez Arciniega Consults: 04/12/25 07:54 Consult to Hospitalist Routine Comment: [place] [facility] [place] Reason For Exam: pyelonephritis Attending physician on discharge: Angeles Mcconnell DS: Diagnosis Discharge Diagnosis (1) UTI (urinary tract infection): Status: Resolved DS: Summary Hospital Course Hospital Course: HPI AT ADMISSION: Alfie Trujillo is a 39 year old male here in the ED for abdominal pain. He had undergone laparoscopic cholecystectomy for acute cholecystitis last Apr 05, 2025 whch was six days. This was a difficulut cholecystectomy in view of severe adhesions in the abdomen and inflammatory changes around the gallbladder. He was discharged on POD 1. He says he had been doing well at home until about 2 days ago when he noted some mild pain on the suprapubic area and lower abdomen. He says this was not severe at all until this morning. He says he has a lot of burning each time he urinates. He denies nausea or vomitting. He has had good BMs and flatus. He has had good oral intake. I have reviewed his CAT scan and the findings appeared to be not unexpected at this stage postoperatively. He does have WBCs and leukocyte esterase in his urinalysis consistent with a UTI. The fluid collection is likely to be from perioperative and postop changes. He does not have any abdominal pain or ten derness on the upper abdomen or on the right upper quadrant. He does not have any jaundice. His LFTs are normal. His lactate is normal. His abdominal exam was very benign. HOSPITAL COURSE: Etiology of his pain is likely a urinary tract infection. He was admitted to the surgical service in view of his dysuria, with fever and chills. He was started on IV ceftriaxone. We will await for culture reports. He is nontoxic looking. With regards to his some changes on CAT scan in the gallbladder fossa, we will follow this closely as well. Currently he does not seem to have any pain in regards to this area. The patient continued to have fevers and persistent dysuria. He began to c/o left sided back pain and had CVA tenderness suggestive of pyelonephritis. His ceftriaxone dose was increased based on his BMI. He was tachycardic and was started on IVF. His vitals improved with IV hydration and better pain control. Hospitalist consult was obtained for input regarding pyelonephritis and they fel t it wasnt pyelo as there was no CT changes. The patient had continued improvement with IVF and IV abx. His WBC downtrended and normalized. His symptoms improved. He was clinically appearing well without any abdominal pain. His urine culture came back positive for E coli, sensitives noted. Blood cultures negative. He had three days of IV abx. He had no fevers >24h. He was improved symptomatically. He was tolerating a solid diet. His abdomen was benign. He was discharged to home on a course of oral Bactrim for 10 days. He is to follow up in the office in 1 week regarding his lap elke. Status at Discharge Functional status at discharge: independent ambulation Overall status at discharge: patient is progressing back to baseline Time Attestation Discharge Coordination Time (in mins): 30 Quality: Safe Use of Opioids Does Pt have an Active Cancer Diagnosis on the Problem List?: No Quality: Stroke Does the patient have a stroke diagnosis?: No Physical Exam Vital Signs: Vital Signs: Last Vital Signs Temp 97.2 F 04/14/25 12:26 Pulse 72 04/14/25 12:26 Resp 18 04/14/25 12:26 BP 126/72 04/14/25 12:26 Pulse Ox 97 04/14/25 12:26 O2 Del Method Room Air 04/14/25 12:26 BMI result Body Mass Index 43.6 Const: General: comfortable, no acute distress and alert Orientation/consciousness: patient oriented x3 Resp: Effort & Inspection: normal respiratory effort GI: Inspection: No distended Palpation (GI): Soft to palpation and nont joseph Skin: General skin exam: no rashes or lesions noted and no jaundice Neuro: General: patient oriented x3 DS: Data Data Completed and Pending Labs on day of discharge: Preliminary micro results at discharge 04/11/25 17:28 Blood Culture - Preliminary Blood - Venous No growth after 48 hours. 04/11/25 17:28 Blood Culture - Preliminary Blood - Venous No growth after 48 hours. Discharge Plan Discharge Anticipated Discharge Date/Time: 04/14/25 12:05 Patient Disposition: Home, Self-Care Discharge Diagnosis: UTI Referrals: Sarah Dang MD [Primary Care Provider, Internal Medicine] - 1 Week Rodirguez Arciniega MD [Physician, General Surgery] - 1 Week Discharge Medications: New sulfamethoxazole-trimethoprim [Bactrim DS] 800-160 mg tablet 1 tab PO BID Qty: 20 0RF Continued cholecalciferol (vitamin D3) 125 mcg (5,000 unit) capsule 125 mcg PO DAILY Qty: 90 0RF mecobalamin (vitamin B12) 1,000 mcg tablet,disintegrating 1,000 mcg sublingual DAILY Qty: 90 0RF Rx Instructions: place tablet under tongue and allow to dissolve for at least30 secs before swallowing atorvastatin 40 mg tablet 40 mg PO DAILY docusate sodium [Colace] 100 mg capsule 100 mg PO BID PRN (Reason: constipation) Qty: 30 0RF oxycodone 5 mg tablet 5 mg PO Q4H PRN (Reason: pain (scale score 7-10)) Qty: 24 0RF Rx Instructions: Partial Fill upon patient request. ibuprofen 600 mg tablet 600 mg PO Q6H PRN (Reason: pain) Qty: 30 0RF levothyroxine [Levo-T] 100 mcg tablet 100 mcg PO DAILY@0600 omeprazole 20 mg capsule,delayed release(DR/EC) 20 mg PO DAILY@0630 Discharge Orders: Discharge Order (Routine); Ordered 04/14/25 Ordered By: Angeles Mcconnell Diet: Advance to usual diet Activity on Discharge: No heavy lifting Stand Alone Forms: Patient Portal Discharge page Print Language: Hong [place]er Care Plan Goals: Returned to baseline Health Concerns: Recent lap elke UTI Plan of Treatment: Oral antibiotics Assessment: Doing well clinically Discharge Date/Time: 04/14/25 12:35
== END 2025-04-14 12:35 | disposition home or self-care (01) | DRG 463 ==
LOC: HO.ED 17:52 → HO.EDOVER 18:58 → HO.S3 19:00
PROVIDERS: Physician Assistant Surgical; Student in an Organized Health Care Education/Training Program; Surgery; Admitting Provider Surgery; Emergency Provider Student in an Organized Health Care Education/Training Program; PCP Internal Medicine; Visit Provider Surgery
DX: N39.0 Urinary tract infection, site not specified (principal); Q05.4 Unspecified spina bifida with hydrocephalus; E03.9 Hypothyroidism, unspecified; E55.9 Vitamin D deficiency, unspecified; B96.20 Unspecified Escherichia coli [E. coli] as the cause of diseases classified elsewhere; E66.01 Morbid (severe) obesity due to excess calories; Z68.41 Body mass index [BMI] 40.0-44.9, adult; E78.5 Hyperlipidemia, unspecified; K21.9 Gastro-esophageal reflux disease without esophagitis; Z98.2 Presence of cerebrospinal fluid drainage device; Z87.891 Personal history of nicotine dependence; Z79.890 Hormone replacement therapy; Z79.899 Other long term (current) drug therapy
CPT/HCPCS: 36415; 74177; 80053; 81001; 81003; 83605; 83690; 85025; 85027; 86850; 86900; 86901; 87040; 87086; 87088; 87186; 99285; J0131; J0696; J1644; J1836; J1885; J2270; J2543; J7120; Q9967

== ENCOUNTER → 2025-04-11 17:13 | Outpatient (BNV) | payer OTHER, SELFPAY | PROVIDERS: Admitting Provider Surgery; Emergency Provider Student in an Organized Health Care Education/Training Program; PCP Internal Medicine; Visit Provider Radiology Diagnostic Radiology | DX: K66.8 Other specified disorders of peritoneum (principal) | CPT/HCPCS: 74177 ==

== ENCOUNTER → 2025-04-11 18:52 | Outpatient (BNV) | payer OTHER, SELFPAY | PROVIDERS: Admitting Provider Surgery; Emergency Provider Student in an Organized Health Care Education/Training Program; PCP Internal Medicine; Visit Provider Student in an Organized Health Care Education/Training Program | DX: N39.0 Urinary tract infection, site not specified (principal) | CPT/HCPCS: 99222; 99499 ==

== ENCOUNTER → 2025-04-11 18:52 | Outpatient (BNV) | payer OTHER, SELFPAY | PROVIDERS: Admitting Provider Surgery; Emergency Provider Student in an Organized Health Care Education/Training Program; PCP Internal Medicine; Visit Provider Physician Assistant Surgical | DX: N39.0 Urinary tract infection, site not specified (principal) | CPT/HCPCS: 99222; 99232; 99238; 99499 ==

== ENCOUNTER 2025-04-19 11:09 | Outpatient (AMB) | payer OTHER, SELFPAY ==
--- NOTE | 2025-04-19 11:16 | A.OFFVIS_ITS ---
Vital Signs 04/19/25 11:28 Weight 282 lb BP 127/81 Blood Pressure Location Rt brachial Position Sitting Pulse 101 H Intake Visit Reasons: s/p elke Intake Note: Patient here s/p Laparoscopic cholecystectomy - very difficult dissection in view of extensive adhesions throughout the peritoneal cavity, and significant induration adhesions surrounding the neck of the gallbladder. Patient c/o: pain under umbilical scar and abdominal pain that spreads to rt and lt lower back area. Burning sensation when urinating. Thinks UTI is not completely cleared. Surgery (FM): 04-05-2025 City Marshal Required: No Allergies levetiracetam (From [facility]) Allergy (Severe, Verified 04/11/25 17:04) ANAPHYLAXIS HPI HPI s/p elke: Details: Alfie Trujillo is a 39 year old male with recent admission for UTI/possible pyelonephritis. He had undergone laparoscopic cholecystectomy for acute cholecystitis on Apr 05, 2025. It was a difficult procedure in view of severe adhesions in the abdomen and inflammatory changes around the gallbladder however was uncomplicated and he tolerated the procedure well and was discharged on POD 1. He had been doing well at home until he developed suprapubic and lower abdomen pain a few days later associated with dysuria and fevers. He came to the ED and was found to have a UTI on UA with culture that grew E coli, pansensitive. CT scan also showed a fluid collection in the gallbladder fossas however he had no RUQ pain at that time and it was deemed to be expected post operative changes. He completed 4 days of IV abx and was discharged to home on a 10 day course of bactrim. He returns today with complaints of continued dysuria, somewhat improved. He also continues to have some mild suprapubic/lower back soreness and now c/o RUQ pain for a few days with nausea. He reports he is able to eat well and denies worsening of the RUQ following food intake. He reports subjective fevers but has not taken his temperature. He is moving his bowels normally. He still has several days of his antibiotic left. [facility] Medical History (Updated 04/19/25 @ 00:02 by Background Daemon) Lower abdominal pain ROCHELLE (obstructive sleep apnea) Hypothyroidism Hyperlipidemia GERD (gastroesophageal reflux disease) Morbid obesity Seizure Surgical History (Updated 04/14/25 @ 00:01 by Background Daemon) H/O endoscopy H/O colonoscopy History of brain shunt H/O Spinal surgery Family History Father No problems noted. Mother No problems noted. Social History Household Members: Spouse and Children Housing: House Are you a primary medication care manager to a significant other at home: No Do you presently have visiting nurse or other home services: No Alcohol intake: former Patient Tobacco Use Status: Former Tobacco user Tobacco use type: Cigarette Years Smoked: 1 service: No Current occupational status: employed Current occupation: [employer] Review of Systems Const All systems reviewed & are unremarkable except as noted in HPI and below Physical Exam Vital Signs: Last Vital Signs Pulse 101 H 04/19/25 11:28 BP 127/81 04/19/25 11:28 Const General: comfortable, no acute distress and alert; No ill appearing Orientation/consciousness: patient oriented x3 Resp Effort & Inspection: normal respiratory effort and able to speak in complete sentences GI Other: corpulent abdomen incisions clean RUQ tender to palpation as well as very mild suprapubic tenderness no CVA tenderness Palpation (GI): Soft to palpation and no guarding Skin General skin exam: no rashes or lesions noted and no jaundice Neuro General: patient oriented x3 and moves all extremities Assessment & Plan Assessment & Plan (1) S/P laparoscopic cholecystectomy: Code(s): Z90.49 - Acquired absence of other specified parts of digestive tract Category: Surgical Plan 39 year male who is 2 weeks s/p laparoscopic cholecystectomy for acute cholecystitis with recent admission on 04/11/25 for UTI/possible pyelonephritis necessitating 4 days of IV abx discharged on 04/14/25 on course of oral bactrim. he reports continued dysuria and now RUQ pain with nausea. He is not jaundiced. He is mildly tender in the RUQ on exam. Given the initial CT findings concerning for possible fluid collection in the GB fossa, will obtain stat CT scan abd/pelvis with IV contrast to evaluate for possible abscess with follow up after the imaging. This will be facilitated through the office and hopefully expedited. He is to return to the ED if he develops worsening symptoms including severe pain, fevers, persistent vomiting and inability to tolerate oral intake, jaundice. He understands and agrees with plan. Orders: Orders CT abdomen pelvis w IV con Today Z90.49 - Acquired absence of other specified parts of digestive tract Coding Level of Care Code Global (96005) Diagnoses S/P laparoscopic cholecystectomy Z90.49
[2025-04-19 11:28] VITALS: BP 127/81; PULSE 101
--- OUTSIDE RECORDS SUMMARY | 2025-04-19 13:59 | XMS_ITS | Clinical Summary ---
Author Organization [facility] Address [address] [place] [address] Phone Care Team Providers Care Hand Tapper Name Role Phone Sarah Dang MD Primary Care Provider [phone] Allergies Active Allergy Reactions Criticality Noted Date [...] EDT - 03/24/2025 10:30 AM EDT Emergency [facility] [address] [place] [address] Eleazar Lma MD Mogul, Ashley, MD Biliary colic (Primary [...] K/mcL LAB HEMETOLOGY METHOD 03/24/2025 6:07 AM [facility] RBC 4.90 4.50 - 5.50 M/mcL LAB HEMETOLOGY METHOD 03/24/2025 6:07 AM [facility] Hemoglobin 14.4 13.5 - 17.5 g/dL LAB HEMETOLOGY METHOD 03/24/2025 6:07 AM [facility] Hematocrit 43.4 42.0 - 54.0 % LAB HEMETOLOGY METHOD 03/24/2025 6:07 AM [facility] MCV 88.8 79.0 - 98.0 FL LAB HEMETOLOGY METHOD 03/24/2025 6:07 AM [facility] MCH 29.4 27.0 - 32.0 pcg LAB HEMETOLOGY METHOD 03/24/2025 6:07 AM [facility] MCHC 33.2 32.0 - 37.0 g/dL LAB HEMETOLOGY METHOD 03/24/2025 6:07 AM [facility] RDW 12.4 11.0 - 15.0 % LAB HEMETOLOGY METHOD 03/24/2025 6:07 AM [facility] Platelets 270 130 - 400 K/mcL LAB HEMETOLOGY METHOD 03/24/2025 6:07 AM [facility] MPV 9.2 7.0 - 11.0 FL LAB HEMETOLOGY METHOD 03/24/2025 6:07 AM [facility] NRBC 0.0 <1.0 % LAB HEMETOLOGY METHOD 03/24/2025 6:07 AM [facility] NRBC Absolute 0.00 <0.10 K/mcL LAB HEMETOLOGY METHOD 03/24/2025 6:07 AM [facility] Neutrophils Relative 64.8 % LAB HEMETOLOGY METHOD 03/24/2025 6:07 AM [facility] Lymphocytes Relative 24.3 % LAB HEMETOLOGY METHOD 03/24/2025 6:07 AM [facility] Monocytes Relative 9.9 % LAB HEMETOLOGY METHOD 03/24/2025 6:07 AM [facility] Eosinophils Relative 0.6 % LAB HEMETOLOGY METHOD 03/24/2025 6:07 AM [facility] Basophils Relative 0.2 % LAB HEMETOLOGY METHOD 03/24/2025 6:07 AM [facility] Immature Granulocytes Relative 0.2 % LAB HEMETOLOGY METHOD 03/24/2025 6:07 AM [facility] Neutrophils Absolute 5.21 1.50 - 7.00 K/mcL LAB HEMETOLOGY METHOD 03/24/2025 6:07 AM [facility] Lymphocytes Absolute 1.96 1.00 - 5.00 K/mcL LAB HEMETOLOGY METHOD 03/24/2025 6:07 AM [facility] Monocytes Absolute 0.80 0.20 - 1.00 K/mcL LAB HEMETOLOGY METHOD 03/24/2025 6:07 AM EDT [facility] Eosinophils Absolute 0.05 0.00 - 0.50 K/[facility] LAB HEMETOLOGY METHOD 03/24/2025 6:07 AM EDT [facility] Basophils Absolute 0.02 0.00 - 0.20 K/[facility] LAB HEMETOLOGY METHOD 03/24/2025 6:07 AM EDT [facility] Immature Granulocytes Absolute 0.02 0.00 - 0.03 K/[facility] LAB HEMETOLOGY METHOD 03/24/2025 6:07 AM EDT [facility] Blood Venous blood specimen / Unknown Venipuncture / Unknown 03/24/2025 5:46 AM EDT 03/24/2025 5:54 AM EDT Eleazar Lam MD LAB BLOOD ORDERABLES Final R esult Performing Organization Address City/[facility]/ZIP Co de Phone Number [facility] [address] [place] [address], [place] [phone] * Lipase (03/24/2025 5:46 AM EDT) Pathologist [facility] Lipase 49 13 - 75 unit/L LAB CHEMISTRY METHOD 03/24/2025 6:21 AM EDT [facility] Blood Venous blood specimen / Unknown Venipuncture / Unknown 03/24/2025 5:46 AM EDT 03/24/2025 5:54 AM EDT us Eleazar Lam MD LAB BLOOD ORDERABLES Final R esult [facility] [address] [place] [address], [place] [phone] * Comprehensive metabolic panel (03/24/2025 5:46 AM EDT) Sodium 135 133 - 145 mmol/L LAB CHEMISTRY METHOD 03/24/2025 6:21 AM [facility] Potassium 4.1 3.5 - 5.5 mmol/L LAB CHEMISTRY METHOD 03/24/2025 6:21 AM [facility] Chloride 105 96 - 110 mmol/L LAB CHEMISTRY METHOD 03/24/2025 6:21 AM [facility] CO2 27 21 - 32 mmol/L LAB CHEMISTRY METHOD 03/24/2025 6:21 AM [facility] Anion Gap 3 3 - 11 LAB CHEMISTRY METHOD 03/24/2025 6:21 AM [facility] Glucose 98 70 - 100 mg/dL LAB CHEMISTRY METHOD 03/24/2025 6:21 AM [facility] BUN 18 5 - 25 mg/dL LAB CHEMISTRY METHOD 03/24/2025 6:21 AM [facility] Creatinine 0.89 0.70 - 1.30 mg/dL LAB CHEMISTRY METHOD 03/24/2025 6:21 AM [facility] eGFR 111 >=60 mL/min/1. 73m2 LAB CHEMISTRY METHOD 03/24/2025 6:21 AM [facility] Comment:Calculation based on the Chronic Kidney Disease Epidemiology Collaboration (CKD-EPI) equation refit without adjustment for race. BUN/Creatinine Ratio 20.2 LAB CHEMISTRY METHOD 03/24/2025 6:21 AM [facility] Calcium 9.0 8.5 - 10.5 mg/dL LAB CHEMISTRY METHOD 03/24/2025 6:21 AM [facility] AST (SGOT) 22 10 - 42 unit/L LAB CHEMISTRY METHOD 03/24/2025 6:21 AM [facility] ALT (SGPT) 36 10 - 60 unit/L LAB CHEMISTRY METHOD 03/24/2025 6:21 AM [facility] Alkaline Phosphatase 70 42 - 121 unit/L LAB CHEMISTRY METHOD 03/24/2025 6:21 AM EDT [facility] Total Protein 7.4 6.0 - 8.0 g/dL LAB CHEMISTRY METHOD 03/24/2025 6:21 AM EDT [facility] Albumin 3.8 3.2 - 5.0 g/dL LAB CHEMISTRY METHOD 03/24/2025 6:21 AM EDT [facility] Total Bilirubin 0.3 0.0 - 1.4 mg/dL LAB CHEMISTRY METHOD 03/24/2025 6:21 AM EDT [facility] Blood Venous blood specimen / Unknown Venipuncture / Unknown 03/24/2025 5:46 AM EDT 03/24/2025 5:54 AM EDT us Eleazar Lam MD LAB BLOOD ORDERABLES Final R esult [facility] [address] [place] [address], [place] [phone] from Last 3 Months Insurance MEDICAID - [place] Care Teams Hand Tapper Relationship Specialty Start Date End Date Sarah Dang MD [address] [place] [address] [place] [address] PCP - General Internal Medicine 03/24/25
== END 2025-04-19 11:49 | disposition home or self-care (01) ==
LOC: HO.HGS 11:10
PROVIDERS: PCP Internal Medicine; Visit Provider Physician Assistant Surgical
DX: Z90.49 Acquired absence of other specified parts of digestive tract (principal)
CPT/HCPCS: 99024

== ENCOUNTER → 2025-04-19 11:09 | Outpatient (BNVA) | payer OTHER, SELFPAY | PROVIDERS: PCP Internal Medicine; Visit Provider Physician Assistant Surgical | DX: Z48.815 Encounter for surgical aftercare following surgery on the digestive system (principal); Z90.49 Acquired absence of other specified parts of digestive tract | CPT/HCPCS: 99212 ==

== ENCOUNTER 2025-04-23 12:49 | Outpatient (REF) | payer OTHER, SELFPAY ==
--- NOTE | ~2025-04-23 | CT_ITS ---
EXAMINATION: CT ABDOMEN AND PELVIS WITH CONTRAST CLINICAL INFORMATION: Z90.49 - Acquired absence of other specified parts of digestive, s/p lap elke, RUQ pain, follow-up gallbladder fossa fluid collection COMPARISON: April 11, 2025 TECHNIQUE: Multidetector volumetric images were obtained from the superior aspect of the liver through the pubic symphysis following administration 85 mL of Omnipaque 350 intravenous contrast. Sagittal and coronal reformatted images were obtained on the technologist's workstation. Oral contrast: No This CT examination was performed using dose optimization techniques as appropriate, variously including the following: *Automated exposure control *Adjustment of mA and/or kV according to patient size (this includes techniques or standardized protocols for targeted exams where dose is matched to indication/reason for exam; i.e. extremities or head) *Use of iterative reconstruction technique FINDINGS: LUNG BASES: The visualized lung bases are unremarkable. LIVER, GALLBLADDER, AND BILIARY TREE: Mild diffuse fatty changes are present in the liver. Clips from cholecystectomy. Fluid and gas collection in the gallbladder fossa appears decreased in size. It measures 4.2 x 2.6 x 2.0 cm, previously 6.4 x 4.2 x 3.0 cm (AP by transverse by CC). Bile ducts are nondilated. PANCREAS: Unremarkable. SPLEEN: Unremarkable. ADRENAL GLANDS: Unremarkable. KIDNEYS AND URETERS: The kidneys are normal in size, shape, and attenuation. No hydronephrosis, hydroureter, or calculi seen. No perinephric stranding. BLADDER: Unremarkable. GASTROINTESTINAL TRACT: The small and large bowel are unremarkable. The appendix is unremarkable. ABDOMINAL WALL: Small umbilical hernia contains adipose tissue, unchanged. LYMPH NODES: Normal. VASCULAR: Unremarkable. PELVIC VISCERA: Unremarkable. OSSEOUS STRUCTURES: Unremarkable. CT/CT abdomen pelvis w IV con IMPRESSION: Gallbladder fossa fluid and gas collection is decreased in size since the prior study performed 12 days ago. Hepatic steatosis. Small umbilical hernia contains fat. Fleischner guidelines were followed. Electronically signed by: Ry Alas MD 04/23/2025 01:41 PM EST
[2025-04-23] MEDS: iohexoL 350 MG/ML 100 ML INFUS..BTL IV (13:30)
--- OUTSIDE RECORDS SUMMARY | 2025-04-23 16:15 | XMS_ITS | Clinical Summary ---
Author Organization [facility] Address [address] [place] [address] Phone Care Team Providers Care Resident Care Aid Name Role Phone Sarah Dang MD Primary Care Provider [phone] Allergies Active Allergy Reactions Criticality Noted Date [...] EDT - 03/24/2025 10:30 AM EDT Emergency [facility] [address] [place] [address] Eleazar Lam MD Mogul, Ashley, [...] K/mcL LAB HEMETOLOGY METHOD 03/24/2025 6:07 AM [facility] RBC 4.90 4.50 - 5.50 M/mcL LAB HEMETOLOGY METHOD 03/24/2025 6:07 AM [facility] Hemoglobin 14.4 13.5 - 17.5 g/dL LAB HEMETOLOGY METHOD 03/24/2025 6:07 AM [facility] Hematocrit 43.4 42.0 - 54.0 % LAB HEMETOLOGY METHOD 03/24/2025 6:07 AM [facility] MCV 88.8 79.0 - 98.0 FL LAB HEMETOLOGY METHOD 03/24/2025 6:07 AM [facility] MCH 29.4 27.0 - 32.0 pcg LAB HEMETOLOGY METHOD 03/24/2025 6:07 AM [facility] MCHC 33.2 32.0 - 37.0 g/dL LAB HEMETOLOGY METHOD 03/24/2025 6:07 AM [facility] RDW 12.4 11.0 - 15.0 % LAB HEMETOLOGY METHOD 03/24/2025 6:07 AM [facility] Platelets 270 130 - 400 K/mcL LAB HEMETOLOGY METHOD 03/24/2025 6:07 AM [facility] MPV 9.2 7.0 - 11.0 FL LAB HEMETOLOGY METHOD 03/24/2025 6:07 AM [facility] NRBC 0.0 <1.0 % LAB HEMETOLOGY METHOD 03/24/2025 6:07 AM [facility] NRBC Absolute 0.00 <0.10 K/mcL LAB HEMETOLOGY METHOD 03/24/2025 6:07 AM [facility] Neutrophils Relative 64.8 % LAB HEMETOLOGY METHOD 03/24/2025 6:07 AM [facility] Lymphocytes Relative 24.3 % LAB HEMETOLOGY METHOD 03/24/2025 6:07 AM [facility] Monocytes Relative 9.9 % LAB HEMETOLOGY METHOD 03/24/2025 6:07 AM [facility] Eosinophils Relative 0.6 % LAB HEMETOLOGY METHOD 03/24/2025 6:07 AM [facility] Basophils Relative 0.2 % LAB HEMETOLOGY METHOD 03/24/2025 6:07 AM [facility] Immature Granulocytes Relative 0.2 % LAB HEMETOLOGY METHOD 03/24/2025 6:07 AM [facility] Neutrophils Absolute 5.21 1.50 - 7.00 K/mcL LAB HEMETOLOGY METHOD 03/24/2025 6:07 AM [facility] Lymphocytes Absolute 1.96 1.00 - 5.00 K/mcL LAB HEMETOLOGY METHOD 03/24/2025 6:07 AM [facility] Monocytes Absolute 0.80 0.20 - 1.00 K/mcL LAB HEMETOLOGY METHOD 03/24/2025 6:07 AM EDT [facility] Eosinophils Absolute 0.05 0.00 - 0.50 K/[facility] LAB HEMETOLOGY METHOD 03/24/2025 6:07 AM EDT [facility] Basophils Absolute 0.02 0.00 - 0.20 K/[facility] LAB HEMETOLOGY METHOD 03/24/2025 6:07 AM EDT [facility] Immature Granulocytes Absolute 0.02 0.00 - 0.03 K/[facility] LAB HEMETOLOGY METHOD 03/24/2025 6:07 AM EDT [facility] Blood Venous blood specimen / Unknown Venipuncture / Unknown 03/24/2025 5:46 AM EDT 03/24/2025 5:54 AM EDT Eleazar Lam MD LAB BLOOD ORDERABLES Final R esult Performing Organization Address City/[facility]/ZIP Co de Phone Number [facility] [address] [place] [address], [place] [phone] * Lipase (03/24/2025 5:46 AM EDT) Pathologist [facility] Lipase 49 13 - 75 unit/L LAB CHEMISTRY METHOD 03/24/2025 6:21 AM EDT [facility] Blood Venous blood specimen / Unknown Venipuncture / Unknown 03/24/2025 5:46 AM EDT 03/24/2025 5:54 AM EDT us Eleazar Lam MD LAB BLOOD ORDERABLES Final R esult [facility] [address] [place] [address], [place] [phone] * Comprehensive metabolic panel (03/24/2025 5:46 AM EDT) Sodium 135 133 - 145 mmol/L LAB CHEMISTRY METHOD 03/24/2025 6:21 AM [facility] Potassium 4.1 3.5 - 5.5 mmol/L LAB CHEMISTRY METHOD 03/24/2025 6:21 AM [facility] Chloride 105 96 - 110 mmol/L LAB CHEMISTRY METHOD 03/24/2025 6:21 AM [facility] CO2 27 21 - 32 mmol/L LAB CHEMISTRY METHOD 03/24/2025 6:21 AM [facility] Anion Gap 3 3 - 11 LAB CHEMISTRY METHOD 03/24/2025 6:21 AM [facility] Glucose 98 70 - 100 mg/dL LAB CHEMISTRY METHOD 03/24/2025 6:21 AM [facility] BUN 18 5 - 25 mg/dL LAB CHEMISTRY METHOD 03/24/2025 6:21 AM [facility] Creatinine 0.89 0.70 - 1.30 mg/dL LAB CHEMISTRY METHOD 03/24/2025 6:21 AM [facility] eGFR 111 >=60 mL/min/1. 73m2 LAB CHEMISTRY METHOD 03/24/2025 6:21 AM [facility] Comment:Calculation based on the Chronic Kidney Disease Epidemiology Collaboration (CKD-EPI) equation refit without adjustment for race. BUN/Creatinine Ratio 20.2 LAB CHEMISTRY METHOD 03/24/2025 6:21 AM [facility] Calcium 9.0 8.5 - 10.5 mg/dL LAB CHEMISTRY METHOD 03/24/2025 6:21 AM [facility] AST (SGOT) 22 10 - 42 unit/L LAB CHEMISTRY METHOD 03/24/2025 6:21 AM [facility] ALT (SGPT) 36 10 - 60 unit/L LAB CHEMISTRY METHOD 03/24/2025 6:21 AM [facility] Alkaline Phosphatase 70 42 - 121 unit/L LAB CHEMISTRY METHOD 03/24/2025 6:21 AM EDT [facility] Total Protein 7.4 6.0 - 8.0 g/dL LAB CHEMISTRY METHOD 03/24/2025 6:21 AM EDT [facility] Albumin 3.8 3.2 - 5.0 g/dL LAB CHEMISTRY METHOD 03/24/2025 6:21 AM EDT [facility] Total Bilirubin 0.3 0.0 - 1.4 mg/dL LAB CHEMISTRY METHOD 03/24/2025 6:21 AM EDT [facility] Blood Venous blood specimen / Unknown Venipuncture / Unknown 03/24/2025 5:46 AM EDT 03/24/2025 5:54 AM EDT us Eleazar Lam MD LAB BLOOD ORDERABLES Final R esult [facility] [address] [place] [address], [place] [phone] from Last 3 Months Insurance MEDICAID - [place] Care Teams Resident Care Aid Relationship Specialty Start Date End Date Sarah Dang MD [address] [place] [address] [place] [address] PCP - General Internal Medicine 03/24/25
== END 2025-04-23 12:50 | disposition home or self-care (01) ==
LOC: HO.CT 12:49
PROVIDERS: PCP Internal Medicine; Visit Provider Physician Assistant Surgical
DX: Z90.49 Acquired absence of other specified parts of digestive tract (principal)
CPT/HCPCS: 74177; Q9967

== ENCOUNTER → 2025-04-23 12:51 | Outpatient (BNV) | payer OTHER, SELFPAY | PROVIDERS: PCP Internal Medicine; Visit Provider Radiology Diagnostic Radiology | DX: K42.9 Umbilical hernia without obstruction or gangrene (principal); K76.0 Fatty (change of) liver, not elsewhere classified; Z90.49 Acquired absence of other specified parts of digestive tract | CPT/HCPCS: 74177 ==

== ENCOUNTER 2025-05-03 11:30 | Outpatient (AMB) | payer OTHER, SELFPAY ==
[2025-05-03 11:45] VITALS: BP 139/70; PULSE 81
--- NOTE | 2025-05-03 11:45 | A.OFFVIS_ITS ---
Vital Signs 05/03/25 11:45 Weight 284 lb BP 139/70 Blood Pressure Location Rt brachial Position Sitting Pulse 81 Intake Visit Reasons: CT Results Intake Note: Patient here today to discuss abdomen pelvis CT from 04-23-2025. Patient c/o: abdomen incision site becomes bothersome/ sore after changing positions from sitting to standing and when walking for long periods of time. For the past 3d noticed a mass on Lt lower abdomen. Stated I'm hoping is not a hernia. Utility Service Worker Required: No Accompanied by: Self / Same As Patient Allergies levetiracetam (From [facility]) Allergy (Severe, Verified 05/03/25 11:48) ANAPHYLAXIS HPI HPI CT Results: Details: Alfie Trujillo is a 39 year old male for follow up CT scan results. He had recent admission for UTI/possible pyelonephritis after previous admission where he had undergone laparoscopic cholecystectomy for acute cholecystitis on Apr 05, 2025. During the admission for his UTI he was found to have a fluid collection in the gallbladder fossa which was deemed normal post operative changes as he seemed asymptomatic from this. He was discharged on a course of bactrim for the UTI but had continued suprapubic pressure and began to complain of RUQ abd pain at his follow up visit. F/u CT scan was therefore ordered for him performed on 04/23 which showed gallbladder fossa fluid and gas collection decreased in size, no perinephric stranding. He returns today feeling improved overall. The RUQ pain had resolved. He still had some mild suprapubic discomfort but denied any dysuria, urinary frequency or hematuria. He does report a bulge on the left mid abdomen next to his umbilicus and is concerned. [facility] Medical History (Updated 04/19/25 @ 00:02 by Background Darhiannonon) Lower abdominal pain ROCHELLE (obstructive sleep apnea) Hypothyroidism Hyperlipidemia GERD (gastroesophageal reflux disease) Morbid obesity Seizure Surgical History (Updated 04/14/25 @ 00:01 by Background Damichel) H/O endoscopy H/O colonoscopy History of brain shunt H/O Spinal surgery Family History Father No problems noted. Mother No problems noted. Social History Household Members: Spouse and Children Housing: House Are you a primary managed care liaison to a significant other at home: No Do you presently have visiting nurse or other home services: No Alcohol intake: former Patient Tobacco Use Status: Former Tobacco user Tobacco use type: Cigarette Years Smoked: 1 service: No Current occupational status: employed Current occupation: [employer] Review of Systems Const Denies chills and Denies fever(s) ENT Denies dizziness Card Denies chest pain and Denies dyspnea Resp Denies dyspnea GI Reports as per HPI Reports as per HPI Skin/Breast Denies rash and Denies jaundice Neuro Denies dizziness Physical Exam Vital Signs: Last Vital Signs Pulse 81 05/03/25 11:45 BP 139/70 05/03/25 11:45 Const General: comfortable, no acute distress and alert Orientation/consciousness: patient oriented x3 Resp Effort & Inspection: normal respiratory effort GI Other: soft nontender well healed port site incisions he does have a bulge lateral to the umbilicus on the left, this does not change with sitting or lying, no change with valsalva- unable to appreciate any hernia Palpation (GI): no guarding Skin General skin exam: no rashes or lesions noted and no jaundice Neuro General: patient oriented x3 and moves all extremities Assessment & Plan Assessment & Plan (1) S/P laparoscopic cholecystectomy: Code(s): Z90.49 - Acquired absence of other specified parts of digestive tract Category: Surgical Plan 39 year old male s/p lap cholecystectomy on 04/05/25 with subsequent admission for UTI/possible pyelonephritis. F/u CT scan showed improvement gallbladder fossa fluid and gas collection. This will likely continue to resolve. He feels improved as well and is clinically appearing well. His abdomen remains benign and is soft, well healed and clean incisions. He does have a bulge as noted above but recent CT scan shows no hernia correlating to that site on his abdomen. There is also no change or evidence on exam with valsalva. He may have developed a hernia following the CT scan but I do not appreciate anything on exam. Unclear what this is. Discussed observation of the area for now. If it it does not improve or begins to worsen with increasing pain or size, he is to return for reevaluation. He agrees with the plan. He can follow up as needed for now. Coding Level of Care Code Est Pt Level 3 (29232) Global (32620) Diagnoses S/P laparoscopic cholecystectomy Z90.49
--- OUTSIDE RECORDS SUMMARY | 2025-05-03 14:44 | XMS_ITS | Clinical Summary ---
Author Organization [facility] Address [address] [place] [address] Phone Care Team Providers Care Inspector Bicycle Name Role Phone Sarah Dang MD Primary Care Provider [phone] Allergies Active Allergy Reactions Criticality Noted Date [...] EDT - 03/24/2025 10:30 AM EDT Emergency [facility] Emergency [address] [place] [address] Eleazar Lam MD [employer], Ashley, [...] LAB HEMETOLOGY METHOD 03/24/2025 6:07 AM EDT [facility] Eosinophils Absolute 0.05 0.00 - 0.50 K/[facility] LAB HEMETOLOGY METHOD 03/24/2025 6:07 AM EDT [facility] Basophils Absolute 0.02 0.00 - 0.20 K/[facility] LAB HEMETOLOGY METHOD 03/24/2025 6:07 AM EDT [facility] Immature Granulocytes Absolute 0.02 0.00 - 0.03 K/[facility] LAB HEMETOLOGY METHOD 03/24/2025 6:07 AM EDT [facility] Blood Venous blood specimen / Unknown Venipuncture / Unknown 03/24/2025 5:46 AM EDT 03/24/2025 5:54 AM EDT Eleazar Lam MD LAB BLOOD ORDERABLES Final R esult Performing Organization Address City/[facility]/ZIP Co de Phone Number [facility] [address] [place] [address], [place] [phone] * Lipase (03/24/2025 5:46 AM EDT) Pathologist [facility] Lipase 49 13 - 75 unit/L LAB CHEMISTRY METHOD 03/24/2025 6:21 AM EDT [facility] Blood Venous blood specimen / Unknown Venipuncture / Unknown 03/24/2025 5:46 AM EDT 03/24/2025 5:54 AM EDT us Eleazar Lam MD LAB BLOOD ORDERABLES Final R esult [facility] [address] [place] [address], [place] [phone] * Comprehensive metabolic panel (03/24/2025 5:46 AM [...] LAB CHEMISTRY METHOD 03/24/2025 6:21 AM EDT [facility] Total Protein 7.4 6.0 - 8.0 g/dL LAB CHEMISTRY METHOD 03/24/2025 6:21 AM EDT [facility] Albumin 3.8 3.2 - 5.0 g/dL LAB CHEMISTRY METHOD 03/24/2025 6:21 AM EDT [facility] Total Bilirubin 0.3 0.0 - 1.4 mg/dL LAB CHEMISTRY METHOD 03/24/2025 6:21 AM EDT [facility] Blood Venous blood specimen / Unknown Venipuncture / Unknown 03/24/2025 5:46 AM EDT 03/24/2025 5:54 AM EDT us Eleazar Lam MD LAB BLOOD ORDERABLES Final R esult [facility] [address] [place] [address], [place] [phone] from Last 3 Months Insurance MEDICAID - [place] Care Teams Inspector Bicycle Relationship Specialty Start Date End Date Sarah Dang MD [address] [place] [address] [place] [address] PCP - General Internal Medicine 03/24/25
== END 2025-05-03 12:10 | disposition home or self-care (01) ==
LOC: HO.HGS 11:31
PROVIDERS: PCP Internal Medicine; Visit Provider Physician Assistant Surgical
DX: Z90.49 Acquired absence of other specified parts of digestive tract (principal)
CPT/HCPCS: 99024; 99499

== ENCOUNTER → 2025-05-03 11:30 | Outpatient (BNVA) | payer OTHER, SELFPAY | PROVIDERS: PCP Internal Medicine; Visit Provider Physician Assistant Surgical | DX: Z71.2 Person consulting for explanation of examination or test findings (principal); Z90.49 Acquired absence of other specified parts of digestive tract | CPT/HCPCS: 99212 ==